=== PATIENT | male | born 1990 | race Caucasian/White ===

== ENCOUNTER 2018-03-14 15:02 | Inpatient (IN) | payer BC ==
[2018-03-14] MEDS ORDERED: methylPREDNISolone Sod Succ/PF 125 MG/2 ML VIAL ONE (15:33)
[2018-03-14] MEDS ORDERED: Cefepime 2 GM VIAL ONE (15:35)
[2018-03-14 15:48] LABS: #Eosinphils 0.2 thou/uL (0.0-0.7); #Lymphocytes 1.4 thou/uL (1.20-3.40); #Monocytes 0.8 thou/uL (0.11-0.59); #Neutrophils 11.1 thou/uL (1.40-6.50); %Basophils 0.3 % (0.0-1.0); %Eosinophils 1.7 % (0.0-10.0); %Lymphocytes 10.6 % (21.0-51.0); %Monocytes 5.9 % (0.0-10.0); %Neutrophils 81.5 % (42.0-75.0); Hemoglobin 15.4 g/dL (14.0-18.0); Mean Corpuscular HGB CONC 34.2 g/dL (32.0-36.0); Mean Corpuscular Hemoglobin 29.4 pg (27.0-31.0); Mean Corpuscular Volume 85.8 fL (78.0-98.0); Mean Platelet Volume 7.5 fL (7.4-10.4); Platelet Count 313 thou/uL (130-400); Red Blood Cell (RBC) Count 5.26 mill/uL (4.70-6.10); White Blood Cell (WBC) Count 13.6 thou/uL (4.8-10.8)
[2018-03-14 15:54] LABS: ALT (SGPT) 13 U/L (8-55); AST (SGOT) 27 U/L (5-34); Albumin 3.1 g/dL (3.5-5.0); Alkaline Phosphatase 69 U/L (40-150); Anion Gap 17 mmol/L (10-20); BUN (Urea Nitrogen) 10 mg/dL (8.9-20.6); Bilirubin, Total 0.9 mg/dL (0.2-1.2); Calc. Creatinine Clearance 0 mL/min (70-130); Calcium 8.8 mg/dL (7.8-10.44); Carbon Dioxide 21 mmol/L (22-29); Chloride 100 mmol/L (98-107); Estimated GFR-MDRD Greater than 90; Glucose 84 mg/dL (70-105); Protein, Total 8.1 g/dL (6.0-8.3); Sodium 135 mmol/L (136-145)
--- NOTE | 2018-03-14 15:56 | RAD ---
SINGLE VIEW OF CHEST: Date: 03/14/18 COMPARISON: None. HISTORY: Left lower extremity pneumonia. HIV positive. FINDINGS: Single view of the chest shows a normal sized cardiomediastinal silhouette. Opacity is seen in the in ferior aspect of the left thorax, which likely represents an infiltrate and adjacent pleural effusion . IMPRESSION: Left lower lobe infiltrate with adjacent pleural effusion. POS: [facility]
[2018-03-14] MEDS ORDERED: Acetaminophen 500 MG TAB ONE (17:07)
[2018-03-14] MEDS ORDERED: Hydrocortisone Sod Succ/PF 100 mg/2 ml Vial ONE (17:54)
[2018-03-14] MEDS ORDERED: Guaifenesin DM 100-10/5 ML UDCUP PO PRN (18:11)
[2018-03-14] MEDS ORDERED: Sodium Chloride 0.9% 1,000 ML IV SCH (18:11)
[2018-03-14 18:50] LABS: HIV (1/2) Antibody/Antigen Reflxed Confirmation (NonReactive)
[2018-03-14 18:52] LABS: HIV 1/2 INDEX 871.12 S/CO (<1.00)
[2018-03-14 19:52] LABS: HBCM Index 0.08 S/CO (0-0.79); HBSAg Index 0.26 S/CO (0-0.99); Hep A IgM AB Non-Reactive (NonReactive); Hep A IgM S/CO 0.13 S/CO (0-0.79); Hep B Surf Ag Non-Reactive S/CO (NonReactive); Hep C IgG Ab Non-Reactive (NonReactive); Hep C Index 0.18 S/CO (0-0.79); Hepatitis B Core IGM Abs Non-Reactive (NonReactive)
[2018-03-14] MEDS: Vancomycin HCl 1 GM in Premix Bag 1 BAG IVPB SCH (21:35)
[2018-03-14] MEDS: Sodium Chloride 0.9% 1,000 ML IV SCH (21:36)
[2018-03-14] MEDS: Famotidine 20 MG TAB PO SCH (21:37)
[2018-03-14] MEDS: Albuterol Sulfate 1.25 MG/3 ML NEB NEB SCH (22:12)
[2018-03-14] MEDS ORDERED: Albuterol Sulfate 1.25 MG/3 ML NEB NEB SCH (23:00)
--- NOTE | 2018-03-15 00:52 | HP ---
REASON FOR ADMISSION: Pneumonia, sepsis, newly diagnosed HIV. HISTORY OF PRESENT ILLNESS: The patient gives history of having been diagnosed with pneumonia from February when he went to see primary care physician on 02/25. He had seen Dr. Zamorano in [place]. He was given a course of doxycycline for 5 days. The patient continued to have fever of up to 102 degrees at home. He went back on 02/[address] Zamorano. He had a chest x-ray and blood work done. He was placed on Levaquin along with clarithromycin for another 10 days. He also had an intramuscular shot of antibiotic done. The patient continued to have fever and was feeling very weak and could not walk. He went back to see his primary care doctor and was told he has a new diagnosis of HIV and was asked to go to the emergency room. The patient has his partner, who is a known HIV positive, who is in the room and I have confirmed this. PAST MEDICAL AND SURGICAL HISTORY: New diagnosis of HIV from today. Right inguinal hernia repair. CURRENT MEDICATIONS: Doxycycline, clarithromycin, Singulair. ALLERGIES: No known drug allergies. PERSONAL HISTORY: Does not abuse alcohol or drugs. No history of smoking. 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 Occasional marijuana in the past. FAMILY HISTORY: Mother is here in the room and is healthy. Father has had history of PA and bowel surgery. CODE STATUS: FULL. REVIEW OF SYSTEMS: The following complete review of systems was negative, unless otherwise mentioned in the HPI or below: Constitutional: Weight loss or gain, ability to conduct usual activities. Skin: Rash, itching. Eyes: Double vision, pain. ENT/Mouth: Nose bleeding, neck stiffness, pain, tenderness. Cardiovascular: Palpitations, dyspnea on exertion, orthopnea. Respiratory: Shortness of breath, wheezing, cough, hemoptysis, fever or night sweats. Gastrointestinal: Poor appetite, abdominal pain, heartburn, nausea, vomiting, constipation, or diarrhea. Genitourinary: Urgency, frequency, dysuria, nocturia. Musculoskeletal: Pain, swelling. Neurologic/Psychiatric: Anxiety, depression. Allergy/Immunologic: Skin rash, bleeding tendency. PHYSICAL EXAMINATION: GENERAL: The patient is a 27-year-old male who is currently lethargic and has mild shortness of breath. VITAL SIGNS: Blood pressure 110/71, pulse 136 per minute, respiratory rate 26 per minute, temperature 101.9 degrees Fahrenheit, saturating 75% on room air and 96% on 2 liters nasal cannula. NECK: Supple. No elevated JVD. HEENT: Eyes: Extraocular muscles intact. Pupils are reacting to light. Oral cavity mucous membranes are dry. No exudates or congestion. CARDIOVASCULAR: S1, S2 heard. Regular rhythm. RESPIRATORY: Air entry 1+ bilateral. Scattered rhonchi plus bilateral. ABDOMEN: Soft, bowel sounds heard. No tenderness, rigidity, or guarding. EXTREMITIES: No peripheral edema or calf tenderness. VASCULAR SYSTEM: Peripheral pulses 1+ bilateral. No ischemic ulcerations or gangrene. CENTRAL NERVOUS SYSTEM: No gross focal deficits noted. Patient is alert and oriented well. PSYCHIATRIC: The patient is a bit anxious, otherwise no hallucinations or delusions. LABORATORY AND X-RAY FINDINGS: Chest x-ray done shows left lower lobe infiltrate. Potassium 3.0. Serum bicarbonate 21, BUN 10, creatinine 0.8, glucose 84. Lactic acid is 1.8. Liver enzymes are within normal limits. Albumin is 3.1. White count of 13, H&H 15 and 45, platelet count 313,000, MCV is 85 with 81% neutrophils. CLINICAL IMPRESSION AND PLAN: The patient will be admitted to [facility] for sepsis, pneumonia, likely PCP pneumonia with new diagnosis of human immunodeficiency virus from this a.m. He will be on Bactrim 200 mg IV q.6 hourly, cefepime 1 gram q.12 hourly, vancomycin 1 gram q.12 hourly. We will obtain HIV quantitative RNA PCR, CD4 count, hepatitis panel, CMV, herpes 1 and 2, IgG, IgM , LDH level, and urine for Strep pneumo and legionella antigens. He will be on albuterol nebulizer q.6 hourly, Solu-Medrol 20 mg IV q.8 hourly, and normal saline at 100 mL per hour. We will try to keep him on the impregnator and drier helper side to avoid acute respiratory distress syndrome. I have discussed this with Dr. Sheldon who is advised to place him on a small dose of Lasix to keep him dry. I have consulted Dr. Payne for Infectious Disease as well. We will continue to closely monitor him in [facility] for tonight. If patient is stable, he can be transferred out to medical floor in the morning. [facility]
[2018-03-15] MEDS: Albuterol Sulfate 1.25 MG/3 ML NEB NEB SCH ×4 (01:26→19:02)
[2018-03-15 02:26] LABS: Legionella Urinary Ag Negative (Negative); Strep pneumo Urine Ag NEGATIVE (NEGATIVE)
[2018-03-15 03:58] LABS: #Lymphocytes 0.5 thou/uL (1.20-3.40); #Monocytes 0.1 thou/uL (0.11-0.59); #Neutrophils 4.3 thou/uL (1.40-6.50); %Basophils 0.2 % (0.0-1.0); %Eosinophils 0.1 % (0.0-10.0); %Lymphocytes 10.5 % (21.0-51.0); %Monocytes 2.1 % (0.0-10.0); %Neutrophils 87.1 % (42.0-75.0); Hemoglobin 12.5 g/dL (14.0-18.0); Mean Corpuscular Hemoglobin 30.9 pg (27.0-31.0); Mean Corpuscular Volume 85.9 fL (78.0-98.0); Mean Platelet Volume 7.4 fL (7.4-10.4); Platelet Count 247 thou/uL (130-400); RBC Distribution Width 11.6 % (11.5-14.5); Red Blood Cell (RBC) Count 4.06 mill/uL (4.70-6.10); White Blood Cell (WBC) Count 4.9 thou/uL (4.8-10.8)
[2018-03-15 04:15] LABS: ALT (SGPT) 11 U/L (8-55); AST (SGOT) 19 U/L (5-34); Albumin 2.5 g/dL (3.5-5.0); Alkaline Phosphatase 54 U/L (40-150); Anion Gap 12 mmol/L (10-20); BUN (Urea Nitrogen) 10 mg/dL (8.9-20.6); Bilirubin, Total 0.5 mg/dL (0.2-1.2); Calc. Creatinine Clearance 178 mL/min (70-130); Calcium 8.2 mg/dL (7.8-10.44); Carbon Dioxide 22 mmol/L (22-29); Chloride 105 mmol/L (98-107); Estimated GFR-MDRD Greater than 90; Glucose 131 mg/dL (70-105); Potassium 3.2 mmol/L (3.5-5.1); Protein, Total 6.5 g/dL (6.0-8.3); Sodium 136 mmol/L (136-145)
[2018-03-15] MEDS: Cefepime 1 GM in Sodium Chloride 0.9% 100 ML IVPB SCH ×2 (04:19→15:43)
[2018-03-15] MEDS ORDERED: Prevnar 13-Val Conj/PF 0.5 ML SYRINGE IM ONE (09:00)
[2018-03-15] MEDS: Vancomycin HCl 1 GM in Premix Bag 1 BAG IVPB SCH ×2 (09:11→20:38)
[2018-03-15] MEDS: Furosemide 20 MG TAB PO SCH ×2 (09:15→14:16)
[2018-03-15] MEDS: Potassium Chloride 20 MEQ TAB PO SCH ×2 (09:15→17:29)
[2018-03-15] MEDS: Enoxaparin Sodium 40 MG/0.4 ML SYRINGE SC SCH (09:16)
[2018-03-15] MEDS: Famotidine 20 MG TAB PO SCH ×2 (09:16→20:38)
[2018-03-15] MEDS: Sodium Chloride 0.9% 1,000 ML IV SCH ×2 (09:20→14:16)
--- NOTE | 2018-03-15 10:17 | CT ---
CT OF CHEST NONCONTRAST: COMPARISON: Radiograph of chest previous day. INDICATION: History of HIV, pneumonia. FINDINGS: There is diffuse abnormal alveolar opacification involving all pulmonary lobes. Interstitial septal thickening is superimposed upon the diffuse ground-glass attenuation. There is no pleural effusion. Superimposed areas of patchy bronchovascular distribution of opacification are present within the po sterior lower lobes, with bilateral traversing air bronchograms. No evidence of pneumothorax. There are mildly enlarged lymph nodes of the chest, incomplete assessment on noncontrast imaging. No acut e osseous pathology is seen. IMPRESSION: Diffuse abnormal alveolar, ground-glass opacities with superimposed interstitial septal thickening, d iffusely throughout each lung favoring an atypical pneumonia such as pneumocystis jiroveci pneumonia. Other etiologies for atypical infection should be correlated clinically, and as imaging findings ar e nonspecific, findings could relate, at least in part, due to edema, alveolar hemorrhage, or sequela e from inhalational injuries. Recommend continued imaging followup. Findings were conveyed via telephone to patient's air conditioner installer helper, Dr. Jared Sheldon, at the time of dic tation, 0900 hours, 03/15/18. CODE CR POS: [facility]
--- NOTE | 2018-03-15 11:07 | PDOC.PN ---
- Subjective Encounter Start Date: 03/15/18 Encounter Start Time: 09:50 Subjective: breathing better but still sob -: says his fever is better - Objective Resuscitation Status: Resuscitation Status FULL:Full Resuscitation MAR Reviewed: Yes Vital Signs & Weight: Vital Signs (12 hours) Temp Pulse Resp BP Pulse Ox 03/15/18 09:37 94 L 03/15/18 09:34 104 H 16 03/15/18 07:32 98.2 F 99 31 H 123/71 95 03/15/18 07:30 98.5 F 89 16 95 03/15/18 04:00 98.5 F 89 16 100/50 L 92 L 03/15/18 01:26 93 16 03/15/18 00:00 98.7 F 94 22 H 125/76 90 L Weight Weight 176 lb I&O: 03/14/18 03/15/18 03/16/18 06:59 06:59 06:59 Intake Total 1635 120 Output Total 1075 Balance 560 120 Result Diagrams: 03/15/18 03:15 03/15/18 03:15 Phys Exam - Physical Examination HEENT: PERRLA, moist MMs Neck: no JVD, supple Respiratory: no wheezing, no rales rhonchi++ Cardiovascular: RRR, no significant murmur Gastrointestinal: soft, non-tender, positive bowel sounds Musculoskeletal: no edema, pulses present Neurological: non-focal, moves all 4 limbs Psychiatric: normal affect, A&O x 3 Dx/Plan (1) AIDS (acquired immune deficiency syndrome) Status: Acute (2) PNA (pneumonia) Code(s): J18.9 - PNEUMONIA, UNSPECIFIED ORGANISM Status: Acute Qualifiers: Pneumonia type: due to Pneumocystis jirovecii Laterality: bilateral (3) Sepsis Code(s): A41.9 - SEPSIS, UNSPECIFIED ORGANISM Status: Acute (4) Acute respiratory failure with hypoxia Code(s): J96.01 - ACUTE RESPIRATORY FAILURE WITH HYPOXIA Status: Acute - Plan is on bactrim iv along with cefepime and vanc -: solumedrol, gentle iv hydration -: oral lasix to keep intravascular vol low -: ct chest, pulm and ID consult -: cd4 is pending, gave updates to family (mom and partner at bedside) * . Review of Systems - Medications/Allergies Allergies/Adverse Reactions: Allergies Allergy/AdvReac Type Severity Reaction Status Date / Time No Known Allergies Allergy Verified 03/15/18 03:05 Medications: Current Medications Acetaminophen (Tylenol) 650 mg PO Q4H PRN PRN Reason: Headache/Fever or Pain Albuterol Sulfate (Albuterol Sulfate) 1.25 mg NEB [id number] [facility] Last Admin: 03/15/18 09:34 Dose: 1.25 mg Enoxaparin Sodium (Lovenox) 40 mg SC 0900 [facility] Last Admin: 03/15/18 09:16 Dose: 40 mg Famotidine (Pepcid) 20 mg PO BID [facility] Last Admin: 03/15/18 09:16 Dose: 20 mg Furosemide (Lasix) 20 mg PO 0900,1400 [facility] Last Admin: 03/15/18 09:15 Dose: 20 mg Guaifenesin/Dextromethorphan (Robitussin Dm) 15 ml PO Q4H PRN PRN Reason: Cough Cefepime HCl 1 gm/ Sodium (Chloride) 100 mls @ 200 mls/hr IVPB 0400,1600 [facility] Last Admin: 03/15/18 04:19 Dose: 100 mls Sodium Chloride (Normal Saline 0.9%) 1,000 mls @ 100 mls/hr IV .Q10H [facility] Last Admin: 03/15/18 09:20 Dose: Not Given Trimethoprim/Sulfamethoxazole (200 mg/ Dextrose/Water) 250 mls @ 166.667 mls/ hr IVPB Q6HR [facility] Last Admin: 03/15/18 06:08 Dose: 250 mls Vancomycin HCl 1 gm/ Device 200 mls @ 200 mls/hr IVPB Q12HR [facility] Last Admin: 03/15/18 09:11 Dose: 200 mls Methylprednisolone Sodium Succinate (Solu-Medrol) 20 mg IVP Q8HR [facility] Last Admin: 03/15/18 05:32 Dose: 20 mg Potassium Chloride (K-Dur) 40 meq PO BID-WM [facility] Last Admin: 03/15/18 09:15 Dose: 40 meq Sodium Chloride (Flush - Normal Saline) 10 ml IVF Q12HR [facility] Last Admin: 03/15/18 09:15 Dose: Not Given Sodium Chloride (Flush - Normal Saline) 10 ml IVF PRN PRN PRN Reason: Saline Flush
--- NOTE | 2018-03-15 17:52 | CON ---
DATE OF CONSULTATION: 03/15/2018 HISTORY OF PRESENT ILLNESS: Orestes Armijo is a 27-year-old male. He presented after having symptoms of cough, chest congestion, and fever for 3 weeks, failing to respond to outpatient antimicrobial therapy. An HIV was drawn which was positive. Apparently, he has a significant other also has HIV. He subsequently was transferred for admission and treatment. PAST MEDICAL HISTORY: Remarkable for no smoking, no drinking, rarely has used marijuana in the past. FAMILY HISTORY: Negative for lung disease. Positive for vascular disease. SOCIAL HISTORY: Not obtained. REVIEW OF SYSTEMS: 10 point systems review completed, otherwise negative. He denies nausea, vomiting, headache, change in vision, diarrhea or abdominal pain. PHYSICAL EXAMINATION: GENERAL: He is afebrile VITALS: heart rate is 97, respiratory rates in the 20s to low 30s, oximetry is 96 on 50% mask, blood pressure 127/71. HEENT: Pupils are equal. Sclerae is anicteric. NECK: Supple. LUNGS: Clear with only faint crackles at his bases. HEART: Regular rhythm, no gallop. ABDOMEN: Soft and nontender. EXTREMITIES: Without clubbing, cyanosis, or edema. LABORATORY DATA: White count 4.9, hemoglobin 12.5, platelets 247. Electrolytes are normal. LDH was 639, albumin is 2.5. Hepatitis panel was negative. Strep and legionella antigens are negative. IMAGING: Chest radiograph suggestive of a left effusion with diffuse infiltrates. Chest CT without contrast done today shows diffuse alveolar infiltrates bilaterally. This most likely is pneumocystis. IMPRESSION AND PLAN: Antimicrobial therapy and steroids have been started. We will continue with this empirically. Infectious Disease should be consulted. Bronchoscopy will be deferred unless he deteriorates. However, he says he feels better than he felt yesterday, so hopefully there are no co-pathogens. It would be reasonable to stop the vancomycin. I doubt he has an MRSA infection , but I will await Infectious Disease input. This is a 70 minute consult, with greater than 50% of time spent on unit with coordination of care. UNIQUE
--- NOTE | 2018-03-15 20:26 | CON ---
DATE OF CONSULTATION: 03/15/2018 REASON FOR CONSULTATION: Pneumonia. HISTORY OF PRESENT ILLNESS: A 27-year-old who has history of hernia repair in the past and was in his usual state until the beginning of February when he developed progressively worsening dyspnea with fever, a little bit of cough, but not much, some headaches, no visual symptoms, sore throat, odynophagia, or dysphagia. No chest pain, no back pain or abdominal pain. Of note, had diarrhea briefly, but not anymore. No genitourinary symptoms. No joint symptoms or skin disorder. PAST MEDICAL HISTORY: Hernia repair. He had been on doxycycline, clarithromycin, Singulair for the current episode of pneumonia. ALLERGIES: None. 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 He is engaged to another man and does not smoke cigarettes, drinks occasionally. FAMILY HISTORY: Noncontributory. PHYSICAL EXAMINATION: VITAL SIGNS: T-max 99.1, blood pressure 120/70, pulse 97, respirations anywhere from 16-38, O2 sat 96%. SKIN: Shows a few tattoos. No lymphadenopathy. HEENT: Ocular movements conjugate. Sclerae white. Oral cavity normal. Numerous teeth in place. NECK: Supple, no jugular vein distention or carotid bruits. LUNGS: Symmetric air entry. Cellophane like inspiratory crackles lower thirds of right and left hemithorax. HEART: S1, S2, regular rate without S3 or S4, no murmurs. ABDOMEN: Soft, not distended or tender. No ascites. No bladder distention. : No genital abnormalities. EXTREMITIES: No joint inflammatory activity. NEUROLOGIC: Nonfocal including cognitive function. LABORATORY DATA: White cell count is 13.6 and now 4.9, hemoglobin 13.4, platelets 313, total lymphocyte count 1.4 and now 0.5. Chemistry: Sodium 135, potassium 3.0 and 3.2, creatinine 0.81. Liver profile normal. Albumin 3.1. HIV serology reflects confirmation pending. Positive hepatitis serology negative. Legionella and strep pneumonia antigen negative. Chest x-ray with left lower lobe infiltrate. Chest CT scan diffuse alveolar opacification involving all pulmonary lobes, interstitial septal thickening and ground-glass attenuation, no evidence of pleural effusion. We have pending CMV antibodies, CD4 cell count, and HIV RNA PCR. He is currently on Bactrim, Solu-Medrol, and cefepime. ASSESSMENT: Chronic pneumonitis, bilateral diffuse with alveolar and interstitial involvement hypoxemia in the setting of newly identified human immunodeficiency virus positive serology and lymphocytopenia in a young man who has sexual activity with other man. DISCUSSION: Differential diagnosis includes Pneumocystis jiroveci pneumonia versus other opportunistic processes in HIV positive patient. This reflects advanced immunosuppression with CD4 cell count likely less than 200. Other opportunistic infections including cytomegalovirus Cryptococcus neoformans, Histoplasma capsulatum infection are not ruled out. Malignancies are less likely. No evidence of intra-abdominal or [employer] involvement. Continue Bactrim and Solu-Medrol. Submit assays for the above pathogens. Withhold antiretroviral therapy until there is some improvement in his pneumonia. Check Fungitell assay. If he does not get better, he will need a bronchoscopy evaluation. Once improved, he can be transitioned to oral Bactrim and oral corticosteroids in preparation for discharge planning with antiretroviral therapy started in OP setting. MTDD
[2018-03-16] MEDS: Albuterol Sulfate 1.25 MG/3 ML NEB NEB SCH ×4 (00:44→18:19)
[2018-03-16] MEDS: Cefepime 1 GM in Sodium Chloride 0.9% 100 ML IVPB SCH ×2 (04:14→15:59)
[2018-03-16] MEDS: Sodium Chloride 0.9% 1,000 ML IV SCH ×2 (04:14→09:23)
[2018-03-16 08:10] LABS: Vancomycin, Trough 6.3 ug/mL
[2018-03-16] MEDS: Famotidine 20 MG TAB PO SCH ×2 (08:50→21:01)
[2018-03-16] MEDS: Furosemide 20 MG TAB PO SCH ×2 (08:50→14:12)
[2018-03-16] MEDS: Potassium Chloride 20 MEQ TAB PO SCH ×2 (08:50→17:56)
[2018-03-16] MEDS: Enoxaparin Sodium 40 MG/0.4 ML SYRINGE SC SCH (08:50)
[2018-03-16 09:53] LABS: #Lymphocytes 0.7 thou/uL (1.20-3.40); #Monocytes 0.7 thou/uL (0.11-0.59); #Neutrophils 13.8 thou/uL (1.40-6.50); %Eosinophils 0.1 % (0.0-10.0); %Lymphocytes 4.8 % (21.0-51.0); %Monocytes 4.5 % (0.0-10.0); %Neutrophils 90.6 % (42.0-75.0); Hemoglobin 14.2 g/dL (14.0-18.0); Mean Corpuscular Hemoglobin 30.4 pg (27.0-31.0); Mean Corpuscular Volume 86.9 fL (78.0-98.0); Mean Platelet Volume 7.2 fL (7.4-10.4); Platelet Count 244 thou/uL (130-400); RBC Distribution Width 12.1 % (11.5-14.5); Red Blood Cell (RBC) Count 4.66 mill/uL (4.70-6.10); White Blood Cell (WBC) Count 15.2 thou/uL (4.8-10.8)
[2018-03-16 10:13] LABS: Anion Gap 14 mmol/L (10-20); BUN (Urea Nitrogen) 12 mg/dL (8.9-20.6); Calc. Creatinine Clearance 176 mL/min (70-130); Calcium 8.4 mg/dL (7.8-10.44); Carbon Dioxide 19 mmol/L (22-29); Chloride 110 mmol/L (98-107); Estimated GFR-MDRD Greater than 90; Glucose 123 mg/dL (70-105); Potassium 3.8 mmol/L (3.5-5.1); Sodium 139 mmol/L (136-145)
--- NOTE | 2018-03-16 11:04 | PRG ---
DATE OF SERVICE: 03/16/2018 SUBJECTIVE: The patient is very short of breath with any exertion. OBJECTIVE: VITAL SIGNS: Temperature is 98.2, pulse 99, respirations from 18-32, O2 sat 93% on 40% Ventimask, bl ood pressure 115/63. HEENT: Unremarkable. NECK: No JVD. LUNGS: Clear. CARDIAC: S1 and S2 regular. ABDOMEN: Soft. EXTREMITIES: No edema. LABORATORY DATA: White blood cell count 15, hematocrit 40, platelet count 244. Sodium 139, potassiu m 3.8, chloride 110, CO2 of 19, BUN 12, creatinine 0.7, glucose 123. ASSESSMENT: 1. Very likely we are dealing with pneumocystis pneumonia. 2. Newly diagnosed human immunodeficiency virus. PLAN: Continue the Bactrim, steroids and oxygen. He is also continuing broad spectrum IV antibiotic s for possible acquired pathogens. He will remain in the IMCU.
[2018-03-16 12:12] LABS: HIV 1 Antibody Multi-Spot Positive (Negative); HIV 2 Antibody Multi-Spot Negative (Negative); HIV Multi-spot Interp HIV-1 Positive (.)
--- NOTE | 2018-03-16 12:45 | PDOC.PN ---
- Subjective Encounter Start Date: 03/16/18 Encounter Start Time: 10:35 Subjective: has sob on min exertion in room -: partner and mom in room - Objective Resuscitation Status: Resuscitation Status FULL:Full Resuscitation MAR Reviewed: Yes Vital Signs & Weight: Vital Signs (12 hours) Temp Pulse Resp BP Pulse Ox 03/16/18 11:18 98.2 F 93 17 104/59 L 97 03/16/18 09:08 93 L 03/16/18 09:07 99 32 H 03/16/18 08:00 98.2 F 93 18 92 L 03/16/18 07:28 98.2 F 93 18 115/63 92 L 03/16/18 04:23 98.3 F 85 31 H 106/60 94 L 03/16/18 00:44 110 H 22 H 94 L Weight Weight 176 lb I&O: 03/15/18 03/16/18 03/17/18 06:59 06:59 06:59 Intake Total 1635 4092.5 240 Output Total 1075 1350 Balance 560 2742.5 240 Result Diagrams: 03/16/18 07:43 03/16/18 07:43 Phys Exam - Physical Examination HEENT: PERRLA, moist MMs Neck: no JVD, supple Respiratory: no wheezing rhonchi+ Cardiovascular: RRR, no significant murmur Gastrointestinal: soft, non-tender, positive bowel sounds Musculoskeletal: no edema, pulses present Neurological: non-focal, moves all 4 limbs Psychiatric: normal affect, A&O x 3 Dx/Plan (1) AIDS (acquired immune deficiency syndrome) Status: Acute (2) PNA (pneumonia) Code(s): J18.9 - PNEUMONIA, UNSPECIFIED ORGANISM Status: Acute Qualifiers: Pneumonia type: due to Pneumocystis jirovecii Laterality: bilateral (3) Sepsis Code(s): A41.9 - SEPSIS, UNSPECIFIED ORGANISM Status: Acute (4) Acute respiratory failure with hypoxia Code(s): J96.01 - ACUTE RESPIRATORY FAILURE WITH HYPOXIA Status: Acute Comment: on ventimask - Plan on bactrim and cefepime, dc vanc -: solumedrol, lasix to prevent ards -: reduce iv fluids to 50mls/hr -: to amb in room -: cd4 levels are pending, still needing supple oxygen * . Review of Systems - Medications/Allergies Allergies/Adverse Reactions: Allergies Allergy/AdvReac Type Severity Reaction Status Date / Time No Known Allergies Allergy Verified 03/15/18 03:05 Medications: Current Medications Acetaminophen (Tylenol) 650 mg PO Q4H PRN PRN Reason: Headache/Fever or Pain Albuterol Sulfate (Albuterol Sulfate) 1.25 mg NEB [id number] [facility] Last Admin: 03/16/18 09:07 Dose: 1.25 mg Enoxaparin Sodium (Lovenox) 40 mg SC 0900 [facility] Last Admin: 03/16/18 08:50 Dose: 40 mg Famotidine (Pepcid) 20 mg PO BID [facility] Last Admin: 03/16/18 08:50 Dose: 20 mg Furosemide (Lasix) 20 mg PO 0900,1400 [facility] Last Admin: 03/16/18 08:50 Dose: 20 mg Guaifenesin/Dextromethorphan (Robitussin Dm) 15 ml PO Q4H PRN PRN Reason: Cough Cefepime HCl 1 gm/ Sodium (Chloride) 100 mls @ 200 mls/hr IVPB 0400,1600 [facility] Last Admin: 03/16/18 04:14 Dose: 100 mls Trimethoprim/Sulfamethoxazole (200 mg/ Dextrose/Water) 250 mls @ 166.667 mls/ hr IVPB Q6HR [facility] Last Admin: 03/16/18 12:07 Dose: 250 mls Sodium Chloride (Normal Saline 0.9%) 1,000 mls @ 50 mls/hr IV .Q20H [facility] Last Admin: 03/16/18 09:23 Dose: Not Given Methylprednisolone Sodium Succinate (Solu-Medrol) 20 mg IVP Q8HR [facility] Last Admin: 03/16/18 05:51 Dose: 20 mg Potassium Chloride (K-Dur) 40 meq PO BID-WM [facility] Last Admin: 03/16/18 08:50 Dose: 40 meq Sodium Chloride (Flush - Normal Saline) 10 ml IVF Q12HR [facility] Last Admin: 03/16/18 08:50 Dose: 10 ml Sodium Chloride (Flush - Normal Saline) 10 ml IVF PRN PRN PRN Reason: Saline Flush
[2018-03-16 13:58] LABS: Reference Lab Name LABCORP
[2018-03-16 13:59] LABS: Ref Lab Test Ordered PHENOSENSE GT INTEGR
[2018-03-17] MEDS: Albuterol Sulfate 1.25 MG/3 ML NEB NEB SCH ×4 (01:03→18:21)
[2018-03-17] MEDS: Cefepime 1 GM in Sodium Chloride 0.9% 100 ML IVPB SCH ×2 (04:50→16:18)
[2018-03-17 06:09] LABS: Anion Gap 12 mmol/L (10-20); BUN (Urea Nitrogen) 11 mg/dL (8.9-20.6); Calc. Creatinine Clearance 192 mL/min (70-130); Calcium 8.3 mg/dL (7.8-10.44); Carbon Dioxide 22 mmol/L (22-29); Chloride 106 mmol/L (98-107); Estimated GFR-MDRD Greater than 90; Glucose 101 mg/dL (70-105); Potassium 4.4 mmol/L (3.5-5.1); Sodium 136 mmol/L (136-145)
[2018-03-17] MEDS: Furosemide 20 MG TAB PO SCH ×2 (09:04→14:17)
[2018-03-17] MEDS: Famotidine 20 MG TAB PO SCH ×2 (09:04→21:00)
[2018-03-17] MEDS: Enoxaparin Sodium 40 MG/0.4 ML SYRINGE SC SCH (09:04)
[2018-03-17 09:09] LABS: Toxoplasma IgG AB Less than 3.0 IU/mL (0.0-7.1); Toxoplasma IgM AB Less than 3.0 AU/mL (0.0-7.9)
[2018-03-17] MEDS: Sodium Chloride 0.9% 1,000 ML IV SCH ×2 (09:12→11:55)
--- NOTE | 2018-03-17 12:15 | PDOC.PN ---
- Subjective Encounter Start Date: 03/17/18 Encounter Start Time: 10:30 Subjective: still sob on min exertion, is on ventimask - Objective Resuscitation Status: Resuscitation Status FULL:Full Resuscitation MAR Reviewed: Yes Vital Signs & Weight: Vital Signs (12 hours) Temp Pulse Resp BP Pulse Ox 03/17/18 10:54 98.5 F 97 22 H 104/54 L 90 L 03/17/18 09:07 104 H 20 03/17/18 08:00 98.9 F 94 19 03/17/18 07:45 98.9 F 94 19 120/67 91 L 03/17/18 04:00 98.8 F 87 25 H 105/57 L 92 L 03/17/18 01:03 94 27 H 95 Weight Weight 176 lb I&O: 03/16/18 03/17/18 03/18/18 06:59 06:59 06:59 Intake Total 4092.5 2420.5 240 Output Total 1350 4475 600 Balance 2742.5 -2054.5 -360 Result Diagrams: 03/16/18 07:43 03/17/18 05:44 Phys Exam - Physical Examination HEENT: PERRLA, sclera anicteric Neck: no JVD, supple Respiratory: no wheezing rhonchi+ Cardiovascular: RRR, no significant murmur Gastrointestinal: soft, non-tender, positive bowel sounds Musculoskeletal: no edema, pulses present Neurological: non-focal, moves all 4 limbs Psychiatric: normal affect, A&O x 3 Dx/Plan (1) AIDS (acquired immune deficiency syndrome) Status: Acute (2) PNA (pneumonia) Code(s): J18.9 - PNEUMONIA, UNSPECIFIED ORGANISM Status: Acute Qualifiers: Pneumonia type: due to Pneumocystis jirovecii Laterality: bilateral (3) Sepsis Code(s): A41.9 - SEPSIS, UNSPECIFIED ORGANISM Status: Acute (4) Acute respiratory failure with hypoxia Code(s): J96.01 - ACUTE RESPIRATORY FAILURE WITH HYPOXIA Status: Acute Comment: on ventimask - Plan is on bactrim iv and cefepime -: nebs, iv steroids -: cd4 and quantitative pcr pending -: to ambulate in hallway as tolerated -: may dc iv fluids, continue lasix daily? * . Review of Systems - Medications/Allergies Allergies/Adverse Reactions: Allergies Allergy/AdvReac Type Severity Reaction Status Date / Time No Known Allergies Allergy Verified 03/15/18 03:05 Medications: Current Medications Acetaminophen (Tylenol) 650 mg PO Q4H PRN PRN Reason: Headache/Fever or Pain Albuterol Sulfate (Albuterol Sulfate) 1.25 mg NEB [id number] [facility] Last Admin: 03/17/18 09:07 Dose: 1.25 mg Enoxaparin Sodium (Lovenox) 40 mg SC 0900 [facility] Last Admin: 03/17/18 09:04 Dose: 40 mg Famotidine (Pepcid) 20 mg PO BID [facility] Last Admin: 03/17/18 09:04 Dose: 20 mg Furosemide (Lasix) 20 mg PO 0900,1400 [facility] Last Admin: 03/17/18 09:04 Dose: 20 mg Guaifenesin/Dextromethorphan (Robitussin Dm) 15 ml PO Q4H PRN PRN Reason: Cough Cefepime HCl 1 gm/ Sodium (Chloride) 100 mls @ 200 mls/hr IVPB 0400,1600 [facility] Last Admin: 03/17/18 04:50 Dose: 100 mls Trimethoprim/Sulfamethoxazole (200 mg/ Dextrose/Water) 250 mls @ 166.667 mls/ hr IVPB Q6HR [facility] Last Admin: 03/17/18 11:53 Dose: 250 mls Sodium Chloride (Normal Saline 0.9%) 1,000 mls @ 50 mls/hr IV .Q20H [facility] Last Admin: 03/17/18 11:55 Dose: 1,000 mls Methylprednisolone Sodium Succinate (Solu-Medrol) 20 mg IVP Q8HR [facility] Last Admin: 03/17/18 06:29 Dose: 20 mg Sodium Chloride (Flush - Normal Saline) 10 ml IVF Q12HR [facility] Last Admin: 03/17/18 09:08 Dose: 10 ml Sodium Chloride (Flush - Normal Saline) 10 ml IVF PRN PRN PRN Reason: Saline Flush
--- NOTE | 2018-03-17 12:46 | PRG ---
DATE OF SERVICE: 03/17/2018 SUBJECTIVE: The patient is doing a little better. He is still requiring high flow oxygen. OBJECTIVE: VITAL SIGNS: Temperature 98.5, pulse 97, respiratory 22, O2 sat 92% on a Ventimask, blood pressure 10 4/54. HEENT: Unremarkable. NECK: No JVD. LUNGS: He has inspiratory crackles in left base, right side is clear. CARDIAC: S1 and S2 regular. ABDOMEN: Soft. EXTREMITIES: No edema. LABORATORY DATA: Sodium 136, potassium 4.4, BUN 11, creatinine 0.6, glucose 101. ASSESSMENT: 1. Probable pneumocystis pneumonia. 2. Newly diagnosed human immunodeficiency virus. PLAN: Continuing Bactrim, steroids and oxygen. Due to his severe hypoxia, he is remaining in the IM [facility].
[2018-03-17 13:09] LABS: HIV-1 Quantitative, RNA PCR 479000 copies/mL (.)
--- NOTE | 2018-03-17 14:36 | PRG ---
DATE OF SERVICE: 03/17/2018 SUBJECTIVE: He is still in the IMCU sitting by the bedside. He was quite a bit of dyspneic earlier this morning, but feeling a little better now. No headaches. Minimal cough, no sputum production, n o chest pain, no abdominal pain or diarrhea. Voiding without difficulty. No neurological symptoms. OBJECTIVE: VITAL SIGNS: T-max 98.9, blood pressure 104/54, pulse 97, respirations 22, O2 sat 90%. SKIN: Perip heral IV access. No Justin catheter. GENERAL: Awake, alert, oriented. HEENT: Ocular movements are conjugate. LUNGS: Good aeration bilaterally with faint inspiratory crackles at the bases, less prominent than o n admission. ABDOMEN: Soft and not distended. CARDIOVASCULAR: S1, S2, regular rate. NEUROLOGIC: Nonfocal. LABORATORY DATA: White cell count 15.2, hemoglobin 14, platelets 244, creatinine 0.66. The Cryptoco ccus antigen negative in serum. HIV RNA PCR 479,000. CMV DNA PCR pending. Fungitell assay pending. ASSESSMENT AND PLAN: Newly identified human immunodeficiency virus infection with likely advanced im munosuppression and diffuse pneumonitis, which is probably secondary to pneumocystis jiroveci infecti on. Continue Bactrim and Medrol. Wait for antiretroviral initiation until there is further improvem ent of pneumonitis to avoid immune reconstitution syndrome and worsening of respiratory status. Wait ing on Fungitell assay, if it is positive, then we will continue treatment with Bactrim. If it is ne gative, then we will have to consider bronchoscopy.
[2018-03-18] MEDS: Albuterol Sulfate 1.25 MG/3 ML NEB NEB SCH ×4 (00:44→19:03)
[2018-03-18] MEDS: Cefepime 1 GM in Sodium Chloride 0.9% 100 ML IVPB SCH ×2 (03:52→16:03)
[2018-03-18] MEDS: Famotidine 20 MG TAB PO SCH ×2 (08:41→21:32)
[2018-03-18] MEDS: Furosemide 20 MG TAB PO SCH ×2 (08:41→14:30)
[2018-03-18] MEDS: Enoxaparin Sodium 40 MG/0.4 ML SYRINGE SC SCH (08:42)
[2018-03-18] MEDS: Sodium Chloride 0.9% 1,000 ML IV SCH ×2 (08:44→11:53)
[2018-03-18 10:13] LABS: %CD4 (Helper/Inducer) 3.5 % (30.8-58.5); Absolute CD4 14 /uL (359-1519); Lymphocytes/Gated Cell Count 0.4 x10E3/uL (0.7-3.1); Total Lymphocyte 5 % (Not Estab.); WBC Total Count 9.9 x10E3/uL (3.4-10.8)
--- NOTE | 2018-03-18 14:25 | PDOC.PN ---
- Subjective Encounter Start Date: 03/18/18 Encounter Start Time: 13:10 Subjective: sob better, is on high flow oxygen - Objective Resuscitation Status: Resuscitation Status FULL:Full Resuscitation MAR Reviewed: Yes Vital Signs & Weight: Vital Signs (12 hours) Temp Pulse Resp BP Pulse Ox 03/18/18 13:22 93 22 H 94 L 03/18/18 11:46 98.0 F 98 20 103/55 L 93 L 03/18/18 08:29 91 L 03/18/18 08:26 90 20 91 L 03/18/18 08:00 98.9 F 91 20 95 03/18/18 07:39 98.9 F 91 20 96/55 L 91 L 03/18/18 04:32 98.4 F 68 22 H 109/60 92 L Weight Weight 176 lb I&O: 03/17/18 03/18/18 03/19/18 06:59 06:59 06:59 Intake Total 2420.5 3044 120 Output Total 4475 3060 Balance -2054.5 -16 120 Result Diagrams: 03/16/18 07:43 03/17/18 05:44 Phys Exam - Physical Examination HEENT: PERRLA, moist MMs Neck: no JVD, supple Respiratory: no wheezing, no rales Cardiovascular: RRR, no significant murmur Gastrointestinal: soft, non-tender, no distention, positive bowel sounds Musculoskeletal: no edema, pulses present Neurological: non-focal, moves all 4 limbs Psychiatric: normal affect, A&O x 3 Dx/Plan (1) AIDS (acquired immune deficiency syndrome) Status: Acute Comment: CD4 count of 14 (2) PNA (pneumonia) Code(s): J18.9 - PNEUMONIA, UNSPECIFIED ORGANISM Status: Acute Qualifiers: Pneumonia type: due to Pneumocystis jirovecii Laterality: bilateral (3) Sepsis Code(s): A41.9 - SEPSIS, UNSPECIFIED ORGANISM Status: Acute (4) Acute respiratory failure with hypoxia Code(s): J96.01 - ACUTE RESPIRATORY FAILURE WITH HYPOXIA Status: Acute Comment: on high flow O2 - Plan on bactrim, cefepime, steroids, nebs -: will need prophylactic meds for low CD4 count per advice -: is ambulating in room -: continue lasix * . Review of Systems - Medications/Allergies Allergies/Adverse Reactions: Allergies Allergy/AdvReac Type Severity Reaction Status Date / Time No Known Allergies Allergy Verified 03/15/18 03:05 Medications: Current Medications Acetaminophen (Tylenol) 650 mg PO Q4H PRN PRN Reason: Headache/Fever or Pain Albuterol Sulfate (Albuterol Sulfate) 1.25 mg NEB [id number] [facility] Last Admin: 03/18/18 13:22 Dose: 1.25 mg Enoxaparin Sodium (Lovenox) 40 mg SC 0900 [facility] Last Admin: 03/18/18 08:42 Dose: 40 mg Famotidine (Pepcid) 20 mg PO BID [facility] Last Admin: 03/18/18 08:41 Dose: 20 mg Furosemide (Lasix) 20 mg PO 0900,1400 [facility] Last Admin: 03/18/18 08:41 Dose: 20 mg Guaifenesin/Dextromethorphan (Robitussin Dm) 15 ml PO Q4H PRN PRN Reason: Cough Cefepime HCl 1 gm/ Sodium (Chloride) 100 mls @ 200 mls/hr IVPB 0400,1600 [facility] Last Admin: 03/18/18 03:52 Dose: 100 mls Trimethoprim/Sulfamethoxazole (200 mg/ Dextrose/Water) 250 mls @ 166.667 mls/ hr IVPB Q6HR [facility] Last Admin: 03/18/18 11:53 Dose: 250 mls Sodium Chloride (Normal Saline 0.9%) 1,000 mls @ 50 mls/hr IV .Q20H [facility] Last Admin: 03/18/18 11:53 Dose: 1,000 mls Methylprednisolone Sodium Succinate (Solu-Medrol) 20 mg IVP Q8HR [facility] Last Admin: 03/18/18 05:34 Dose: 20 mg Sodium Chloride (Flush - Normal Saline) 10 ml IVF Q12HR [facility] Last Admin: 03/18/18 08:42 Dose: 10 ml Sodium Chloride (Flush - Normal Saline) 10 ml IVF PRN PRN PRN Reason: Saline Flush Last Admin: 03/17/18 14:18 Dose: 10 ml
[2018-03-18] MEDS: Acetaminophen 325 MG TAB PO PRN (14:30)
--- NOTE | 2018-03-18 18:01 | PRG ---
DATE OF SERVICE: 03/18/2018 SUBJECTIVE: Mr. Armijo says he is feeling better than he felt on Sunday. OBJECTIVE: VITAL SIGNS: His temperature is 99, heart rate 106, respiratory rate 22. He is now on a high-flow n ramon cannula. Oximetry is 91 to 94, blood pressure 101/58. LUNGS: Unchanged. HEART: Unchanged. ABDOMEN: Unchanged. IMPRESSION: Human immunodeficiency virus positive with pneumonia, presumably pneumocystis. He annie nues to subjectively and objectively improve.
--- NOTE | 2018-03-18 18:05 | RAD ---
SINGLE VIEW CHEST: HISTORY: Multifocal infiltrates/pneumonia. COMPARISON: CT chest from 03/15/2018 and chest x-ray from 03/14/2018. FINDINGS: A single view of the chest shows a normal sized cardiomediastinal silhouette. Opacity is still prese nt in the left lower lobe. However, this has improved compared to the prior examination. The left h emidiaphragm is obscured, and a small pleural effusion may or may not be present. IMPRESSION: Improvement in pneumonia. POS: AKUAH
--- NOTE | 2018-03-18 18:56 | PRG ---
DATE OF SERVICE: 03/18/2018 SUBJECTIVE: Still requiring high flow oxygen to keep his sats at least 90. He gets fatigued when he sits up for brief periods of time, able to eat. No diarrhea. Voiding without difficulty. No chest pain. OBJECTIVE: VITAL SIGNS: T-max 99, BP 101/58, pulse 106, respirations 22, O2 sat 91%. GENERAL: Awake, alert. LUNGS: High flow oxygen, symmetric air entry, faint crackles at the bases. CARDIOVASCULAR: S1, S2, regular rate. ABDOMEN: Soft and not distended or tender. EXTREMITIES: Moves all extremities equally. LABORATORY DATA: White cell count 15.2, hemoglobin 14, platelets 244. Sodium 136, creatinine 0.66. Liver profile normal. Albumin 2.5. CD4 was 14. The Fungitell assay is pending. ASSESSMENT AND DISCUSSION: HIV infection with advanced immunosuppression, likely pneumocystis pneumo claudia. processes not ruled out. In view of the CD4 cell count, we will submit AFB blood culture s to rule out MAC infection as well. CMV histoplasma assays are pending. Fungitell assay pending. Continue Bactrim. Increase dose to 250 mg q.6 h. Continue steroids. Withhold antiretroviral therap y for the time being.
[2018-03-18 23:09] LABS: HSV-1 IgG Type Specific 0.92 index (0.00-0.90); HSV-2 IgG Type Specific Less than 0.91 index (0.00-0.90)
[2018-03-19] MEDS: Albuterol Sulfate 1.25 MG/3 ML NEB NEB SCH ×4 (01:06→18:54)
[2018-03-19] MEDS: Cefepime 1 GM in Sodium Chloride 0.9% 100 ML IVPB SCH ×2 (04:49→16:56)
[2018-03-19] MEDS: Enoxaparin Sodium 40 MG/0.4 ML SYRINGE SC SCH (10:44)
[2018-03-19] MEDS: Famotidine 20 MG TAB PO SCH ×2 (10:44→20:54)
[2018-03-19] MEDS: Furosemide 20 MG TAB PO SCH ×2 (10:46→13:33)
[2018-03-19 14:28] LABS: CMV DNA-PCR Test Positive < 200 IU/mL (Negative)
--- NOTE | 2018-03-19 15:42 | PDOC.PN ---
- Subjective Encounter Start Date: 03/19/18 Encounter Start Time: 14:00 Subjective: sob is slowly getting better - Objective Resuscitation Status: Resuscitation Status FULL:Full Resuscitation MAR Reviewed: Yes Vital Signs & Weight: Vital Signs (12 hours) Temp Pulse Resp BP Pulse Ox 03/19/18 13:31 100 03/19/18 13:30 104 H 20 100 03/19/18 11:48 98.5 F 93 20 100/55 L 92 L 03/19/18 11:00 93 L 03/19/18 08:00 98.5 F 93 20 94/53 L 95 03/19/18 04:49 98.2 F 68 26 H 104/58 L 93 L Weight Weight 176 lb I&O: 03/18/18 03/19/18 03/20/18 06:59 06:59 06:59 Intake Total 3044 1938.0 Output Total 3060 1875 Balance -16 63.0 Result Diagrams: 03/16/18 07:43 03/17/18 05:44 Phys Exam - Physical Examination HEENT: PERRLA, moist MMs Neck: no JVD, supple Respiratory: no wheezing, no rales rhonchi++ Cardiovascular: RRR, no significant murmur Gastrointestinal: soft, non-tender, positive bowel sounds Musculoskeletal: no edema, pulses present Neurological: non-focal, moves all 4 limbs Psychiatric: normal affect, A&O x 3 Dx/Plan (1) AIDS (acquired immune deficiency syndrome) Status: Acute Comment: CD4 count of 14 (2) PNA (pneumonia) Code(s): J18.9 - PNEUMONIA, UNSPECIFIED ORGANISM Status: Acute Qualifiers: Pneumonia type: due to Pneumocystis jirovecii Laterality: bilateral (3) Sepsis Code(s): A41.9 - SEPSIS, UNSPECIFIED ORGANISM Status: Acute (4) Acute respiratory failure with hypoxia Code(s): J96.01 - ACUTE RESPIRATORY FAILURE WITH HYPOXIA Status: Acute Comment: on high flow O2 - Plan on high flow oxygen, steroids and nebs -: cefepime -: lasix -: to mobilize as tolerated in room * . Review of Systems - Medications/Allergies Allergies/Adverse Reactions: Allergies Allergy/AdvReac Type Severity Reaction Status Date / Time No Known Allergies Allergy Verified 03/15/18 03:05 Medications: Current Medications Acetaminophen (Tylenol) 650 mg PO Q4H PRN PRN Reason: Headache/Fever or Pain Last Admin: 03/18/18 14:30 Dose: 650 mg Albuterol Sulfate (Albuterol Sulfate) 1.25 mg NEB [id number] [facility] Last Admin: 03/19/18 13:30 Dose: 1.25 mg Enoxaparin Sodium (Lovenox) 40 mg SC 0900 [facility] Last Admin: 03/19/18 10:44 Dose: 40 mg Famotidine (Pepcid) 20 mg PO BID [facility] Last Admin: 03/19/18 10:44 Dose: 20 mg Furosemide (Lasix) 20 mg PO 0900,1400 [facility] Last Admin: 03/19/18 13:33 Dose: 20 mg Guaifenesin/Dextromethorphan (Robitussin Dm) 15 ml PO Q4H PRN PRN Reason: Cough Cefepime HCl 1 gm/ Sodium (Chloride) 100 mls @ 200 mls/hr IVPB 0400,1600 [facility] Last Admin: 03/19/18 04:49 Dose: 100 mls Sodium Chloride (Normal Saline 0.9%) 1,000 mls @ 50 mls/hr IV .Q20H [facility] Last Admin: 03/18/18 11:53 Dose: 1,000 mls Trimethoprim/Sulfamethoxazole (250 mg/ Dextrose/Water) 250 mls @ 166.667 mls/ hr IVPB Q6HR [facility] Last Admin: 03/19/18 13:32 Dose: 250 mls Methylprednisolone Sodium Succinate (Solu-Medrol) 20 mg IVP Q6HR [facility] Last Admin: 03/19/18 13:32 Dose: 20 mg Sodium Chloride (Flush - Normal Saline) 10 ml IVF Q12HR [facility] Last Admin: 03/19/18 10:46 Dose: Not Given Sodium Chloride (Flush - Normal Saline) 10 ml IVF PRN PRN PRN Reason: Saline Flush Last Admin: 03/17/18 14:18 Dose: 10 ml
[2018-03-19] MEDS: Sodium Chloride 0.9% 1,000 ML IV SCH ×2 (16:57→20:54)
--- NOTE | 2018-03-19 18:00 | PRG ---
DATE OF SERVICE: 03/19/2018 SUBJECTIVE: Feeling better. Finally able to eat breakfast without problems. Slept well. OBJECTIVE: VITAL SIGNS: T-max 98.5, still on high flow oxygen with maintaining O2 sat anywhere from 94-100, BP 101/56, pulse 88. GENERAL: Awake, alert, oriented. LUNGS: With faint basilar crackles. HEART: S1, S2, without murmurs. ABDOMEN: Soft, not distended. NEUROLOGIC: Nonfocal. LABORATORY DATA: The Fungitell assay is pending. CMV was less than 200. DNA PCR, histoplasma antig en less than 0.5. ASSESSMENT AND DISCUSSION: A newly diagnosed HIV infection with advanced immunosuppression, CD4 cell count less than 50 with likely pneumocystis pneumonia. Clear cut improvement. Continue Bactrim, So sae-Medrol, and probably tomorrow or the day after cut the Solu-Medrol dose by half. Consider switchi ng to oral prednisone. Continue Bactrim IV in another few days. Start antiretroviral therapy.
--- NOTE | 2018-03-19 18:51 | PRG ---
DATE OF SERVICE: 03/19/2018 Orestes Armijo continues to improve. He says he is feeling better. He is moving around a little more in the room with less dyspnea. He is down below 50% FiO2 now. PHYSICAL EXAMINATION: VITAL SIGNS: He is afebrile, heart rate is 88, respiratory rates in the 20s to 30s, if he starts mov ing, oximetry is 94%, blood pressure 101/56. LUNGS: Remarkable for fine crackles at the bases. CARDIOVASCULAR: Regular rhythm. ABDOMEN: Soft. IMPRESSION: Human immunodeficiency virus positive with pneumonia, presumably pneumocystis. Given radu s clinical improvement, will continue for now. His CD4 count was as expected very low at 14. He had a low CMV IgM titer. All of his hepatitis serology was negative. His Toxo IgM and IgG was negative. His strep pneumonia and legionella antigens were negative. His urine histoplasma antigen was negative. We will continue with current antimicrobial care and luis roids. He will likely be in the hospital at least 2 weeks as I have explained to him.
[2018-03-20] MEDS: Albuterol Sulfate 1.25 MG/3 ML NEB NEB SCH ×4 (00:08→18:46)
[2018-03-20] MEDS: Cefepime 1 GM in Sodium Chloride 0.9% 100 ML IVPB SCH ×2 (04:16→15:49)
[2018-03-20] MEDS: Famotidine 20 MG TAB PO SCH ×2 (08:30→21:40)
[2018-03-20] MEDS: Enoxaparin Sodium 40 MG/0.4 ML SYRINGE SC SCH (08:30)
[2018-03-20] MEDS: Furosemide 20 MG TAB PO SCH ×2 (08:30→14:14)
--- NOTE | 2018-03-20 17:14 | PRG ---
DATE OF SERVICE: 03/20/2018 SUBJECTIVE: Orestes Armijo is in no distress. OBJECTIVE: VITAL SIGNS: He is afebrile. Heart rate 88-101, respiratory rate is 20, oximetry is 95, still on hi gh flow nasal cannula, blood pressure 93/50. LUNGS: Remarkable for fine crackles at bases. HEART: Regular rhythm. ABDOMEN: Soft. IMPRESSION: Presumed pneumocystis pneumonia with HIV. He no longer needs telemetry monitoring. He i s clinically improved significantly. He will be transferred out of Intermediate Care Unit.
--- NOTE | 2018-03-20 19:08 | PDOC.PN ---
- Subjective Encounter Start Date: 03/20/18 Encounter Start Time: 15:00 Subjective: no sob, feels better - Objective Resuscitation Status: Resuscitation Status FULL:Full Resuscitation MAR Reviewed: Yes Vital Signs & Weight: Vital Signs (12 hours) Temp Pulse Resp BP Pulse Ox 03/20/18 18:48 98 03/20/18 18:46 102 H 22 H 98 03/20/18 17:48 97.8 F 90 20 92/50 L 96 03/20/18 16:03 95 03/20/18 12:44 97.7 F 103 H 20 92/50 L 03/20/18 12:05 101 H 20 95 03/20/18 08:32 98.0 F 88 20 92/50 L 93 L 03/20/18 08:00 98.0 F 88 20 93 L Weight Weight 176 lb I&O: 03/19/18 03/20/18 03/21/18 06:59 06:59 06:59 Intake Total 2738.0 2820 800 Output Total 2475 4550 2725 Balance 263.0 -1730 -1925 Result Diagrams: 03/16/18 07:43 03/17/18 05:44 Phys Exam - Physical Examination HEENT: PERRLA, moist MMs Neck: no JVD, supple Respiratory: no wheezing, no rales rhonchi++ Cardiovascular: RRR, no significant murmur Gastrointestinal: soft, non-tender, positive bowel sounds Musculoskeletal: no edema, pulses present Neurological: non-focal, moves all 4 limbs Psychiatric: normal affect, A&O x 3 Dx/Plan (1) AIDS (acquired immune deficiency syndrome) Status: Acute Comment: CD4 count of 14 (2) PNA (pneumonia) Code(s): J18.9 - PNEUMONIA, UNSPECIFIED ORGANISM Status: Acute Qualifiers: Pneumonia type: due to Pneumocystis jirovecii Laterality: bilateral (3) Sepsis Code(s): A41.9 - SEPSIS, UNSPECIFIED ORGANISM Status: Acute (4) Acute respiratory failure with hypoxia Code(s): J96.01 - ACUTE RESPIRATORY FAILURE WITH HYPOXIA Status: Acute Comment: on high flow O2 - Plan on cefepime and bactrim iv -: iv steroids, nebs and high flow oxygen -: HIV meds per advice including low CD4 prophylaxis -: continue lasix and gentle iv hydration for buffer * . Review of Systems - Medications/Allergies Allergies/Adverse Reactions: Allergies Allergy/AdvReac Type Severity Reaction Status Date / Time No Known Allergies Allergy Verified 03/15/18 03:05 Medications: Current Medications Acetaminophen (Tylenol) 650 mg PO Q4H PRN PRN Reason: Headache/Fever or Pain Last Admin: 03/18/18 14:30 Dose: 650 mg Albuterol Sulfate (Albuterol Sulfate) 1.25 mg NEB [id number] [facility] Last Admin: 03/20/18 18:46 Dose: 1.25 mg Enoxaparin Sodium (Lovenox) 40 mg SC 0900 [facility] Last Admin: 03/20/18 08:30 Dose: 40 mg Famotidine (Pepcid) 20 mg PO BID [facility] Last Admin: 03/20/18 08:30 Dose: 20 mg Furosemide (Lasix) 20 mg PO 0900,1400 [facility] Last Admin: 03/20/18 14:14 Dose: 20 mg Guaifenesin/Dextromethorphan (Robitussin Dm) 15 ml PO Q4H PRN PRN Reason: Cough Cefepime HCl 1 gm/ Sodium (Chloride) 100 mls @ 200 mls/hr IVPB 0400,1600 [facility] Last Admin: 03/20/18 15:49 Dose: 100 mls Sodium Chloride (Normal Saline 0.9%) 1,000 mls @ 50 mls/hr IV .Q20H [facility] Last Admin: 03/19/18 20:54 Dose: 1,000 mls Trimethoprim/Sulfamethoxazole (250 mg/ Dextrose/Water) 250 mls @ 166.667 mls/ hr IVPB Q6HR [facility] Last Admin: 03/20/18 18:27 Dose: 250 mls Methylprednisolone Sodium Succinate (Solu-Medrol) 20 mg IVP Q6HR [facility] Last Admin: 03/20/18 18:28 Dose: 20 mg Sodium Chloride (Flush - Normal Saline) 10 ml IVF Q12HR [facility] Last Admin: 03/20/18 08:37 Dose: Not Given Sodium Chloride (Flush - Normal Saline) 10 ml IVF PRN PRN PRN Reason: Saline Flush Last Admin: 03/17/18 14:18 Dose: 10 ml
[2018-03-21] MEDS: Albuterol Sulfate 1.25 MG/3 ML NEB NEB SCH ×3 (00:30→13:11)
[2018-03-21] MEDS: Cefepime 1 GM in Sodium Chloride 0.9% 100 ML IVPB SCH (03:18)
[2018-03-21] MEDS: Sodium Chloride 0.9% 1,000 ML IV SCH (05:44)
[2018-03-21] MEDS: Famotidine 20 MG TAB PO SCH ×2 (09:00→21:29)
[2018-03-21] MEDS: Furosemide 20 MG TAB PO SCH ×2 (09:00→12:33)
[2018-03-21] MEDS: Enoxaparin Sodium 40 MG/0.4 ML SYRINGE SC SCH (09:01)
--- NOTE | 2018-03-21 11:12 | PDOC.PN ---
- Subjective Encounter Start Date: 03/21/18 Encounter Start Time: 10:15 Subjective: no sob, feels better -: is on high flow oxygen -: has not had bm - Objective Resuscitation Status: Resuscitation Status FULL:Full Resuscitation MAR Reviewed: Yes Vital Signs & Weight: Vital Signs (12 hours) Temp Pulse Resp BP Pulse Ox 03/21/18 10:45 95 03/21/18 08:00 97 03/21/18 07:38 98.0 F 73 28 H 102/59 L 92 L 03/21/18 07:11 81 20 96 03/21/18 04:00 97.7 F 84 20 103/54 L 97 03/21/18 00:30 89 24 H 92 L 03/21/18 00:00 99.0 F 73 20 101/61 92 L Weight Weight 176 lb I&O: 03/20/18 03/21/18 03/22/18 06:59 06:59 06:59 Intake Total 2820 2200 Output Total 4550 4875 Balance -1730 -7501 Result Diagrams: 03/16/18 07:43 03/17/18 05:44 Phys Exam - Physical Examination HEENT: PERRLA, moist MMs Neck: no JVD, supple Respiratory: no wheezing, no rales rhonchi+ Cardiovascular: RRR, no significant murmur Gastrointestinal: soft, non-tender, positive bowel sounds Musculoskeletal: no edema, pulses present Neurological: non-focal, moves all 4 limbs Psychiatric: normal affect, A&O x 3 Dx/Plan (1) AIDS (acquired immune deficiency syndrome) Status: Acute Comment: CD4 count of 14 (2) PNA (pneumonia) Code(s): J18.9 - PNEUMONIA, UNSPECIFIED ORGANISM Status: Acute Qualifiers: Pneumonia type: due to Pneumocystis jirovecii Laterality: bilateral (3) Sepsis Code(s): A41.9 - SEPSIS, UNSPECIFIED ORGANISM Status: Acute (4) Acute respiratory failure with hypoxia Code(s): J96.01 - ACUTE RESPIRATORY FAILURE WITH HYPOXIA Status: Acute Comment: on high flow O2 - Plan on bactrim iv, steroids and cefepime -: nebs, high flow oxygen -: bowel regimen -: lasix to keep him on dry side to prevent ARDS -: may dc iv fluids, awaiting medical bed for tx from imcu * . HIV meds when he is more stable to prevent immune reconstitution syndrome, to add low CD4 prophylaxis meds. To ambulate as tolerated in room Review of Systems - Medications/Allergies Allergies/Adverse Reactions: Allergies Allergy/AdvReac Type Severity Reaction Status Date / Time No Known Allergies Allergy Verified 03/15/18 03:05 Medications: Current Medications Acetaminophen (Tylenol) 650 mg PO Q4H PRN PRN Reason: Headache/Fever or Pain Last Admin: 03/18/18 14:30 Dose: 650 mg Albuterol Sulfate (Albuterol Sulfate) 1.25 mg NEB [id number] [facility] Last Admin: 03/21/18 07:11 Dose: 1.25 mg Enoxaparin Sodium (Lovenox) 40 mg SC 0900 [facility] Last Admin: 03/21/18 09:01 Dose: 40 mg Famotidine (Pepcid) 20 mg PO BID [facility] Last Admin: 03/21/18 09:00 Dose: 20 mg Furosemide (Lasix) 20 mg PO 0900,1400 [facility] Last Admin: 03/21/18 09:00 Dose: 20 mg Guaifenesin/Dextromethorphan (Robitussin Dm) 15 ml PO Q4H PRN PRN Reason: Cough Cefepime HCl 1 gm/ Sodium (Chloride) 100 mls @ 200 mls/hr IVPB 0400,1600 [facility] Last Admin: 03/21/18 03:18 Dose: 100 mls Sodium Chloride (Normal Saline 0.9%) 1,000 mls @ 50 mls/hr IV .Q20H [facility] Last Admin: 03/21/18 05:44 Dose: 1,000 mls Trimethoprim/Sulfamethoxazole (250 mg/ Dextrose/Water) 250 mls @ 166.667 mls/ hr IVPB Q6HR [facility] Last Admin: 03/21/18 05:45 Dose: 250 mls Methylprednisolone Sodium Succinate (Solu-Medrol) 20 mg IVP Q6HR [facility] Last Admin: 03/21/18 05:42 Dose: 20 mg Sodium Chloride (Flush - Normal Saline) 10 ml IVF Q12HR [facility] Last Admin: 03/21/18 09:02 Dose: Not Given Sodium Chloride (Flush - Normal Saline) 10 ml IVF PRN PRN PRN Reason: Saline Flush Last Admin: 03/17/18 14:18 Dose: 10 ml
[2018-03-21] MEDS ORDERED: Furosemide 40 MG/4 ML VIAL IVP SCH (15:15)
--- NOTE | 2018-03-21 17:04 | PRG ---
DATE OF SERVICE: 03/21/2018 Orestes Armijo says he is feeling better. We had him on nasal cannula for a short period of time today, but we had to go back on the high flow cannula. He has been in negative fluid balance but could probably diurese more after I have examined him and l ooked at his lab work. He does still have diffuse crackles on exam which I am sure some of this is n oncardiogenic edema. He remains in a regular rhythm. He has mild resting tachycardia. Abdomen is soft and nontender. IMPRESSION: Presumed pneumocystis with HIV, clinically improving. Try diuresing a little more aggre ssively and see if this helps with his gas exchange.
--- NOTE | 2018-03-21 18:19 | PRG ---
DATE OF SERVICE: 03/21/2018 SUBJECTIVE: Still having a lot of desaturation when he was transitioned to just a regular nasal chapis antonina. Had to be brought back to a high-flow nasal cannula and is back to 94 while he is eating dinner . No headaches, no chest pain, no abdominal pain, no diarrhea. OBJECTIVE: VITAL SIGNS: T-max 98.6, blood pressure 105/56, pulse 114, respirations 22-28, O2 sat is now 94. GENERAL: Awake, alert, oriented. LUNGS: With faint basilar crackles, otherwise symmetric lung sounds. HEART: S1, S2, regular rate. ABDOMEN: Soft, not distended. NEUROLOGIC: Nonfocal. LABORATORY DATA: The Fungitell assay was elevated at 435, confirming the pneumocystis diagnosis. Pn eumocystis DNA PCR is pending. ASSESSMENT AND DISCUSSION: Advanced human immunodeficiency virus infection likely pneumocystis pneum onia. DISCUSSION: The patient to continue on Bactrim and Solu-Medrol, increase Bactrim dose to 300 mg q.6 hours. Somewhat delayed response. In the next few days, we will consider starting antiretroviral th erapy. No other opportunistic infections are apparent at this time.
[2018-03-21] MEDS: Docusate 100 MG CAP PO SCH (21:29)
[2018-03-22 04:15] LABS: Magnesium 2.3 mg/dL (1.6-2.6); Phosphorus 4.5 mg/dL (2.3-4.7)
[2018-03-22] MEDS: Sodium Chloride 0.9% 1,000 ML IV SCH (06:02)
[2018-03-22] MEDS: Polyethylene Glycol 3350 17 GM Packet PO SCH (08:56)
[2018-03-22] MEDS: Furosemide 20 MG/2 ML VIAL SLOW IVP SCH (08:57)
[2018-03-22] MEDS: Enoxaparin Sodium 40 MG/0.4 ML SYRINGE SC SCH (08:57)
[2018-03-22] MEDS: Famotidine 20 MG TAB PO SCH ×2 (08:57→20:41)
[2018-03-22] MEDS: Docusate 100 MG CAP PO SCH ×2 (08:57→20:41)
--- NOTE | 2018-03-22 10:57 | PDOC.PN ---
- Subjective Encounter Start Date: 03/22/18 Encounter Start Time: 10:55 Feels ok. Primary concern is the constipation. Has receive multiple meds. Breathing ok. - Objective Resuscitation Status: Resuscitation Status FULL:Full Resuscitation Vital Signs & Weight: Vital Signs (12 hours) Temp Pulse Resp BP Pulse Ox 03/22/18 08:34 91 L 03/22/18 08:10 95 20 03/22/18 08:00 91 L 03/22/18 07:13 98.4 F 86 24 H 98/53 L 91 L 03/22/18 03:00 98.2 F 88 30 H 95/57 L 93 L 03/22/18 00:00 98.6 F 89 28 H 90 L Weight Weight 176 lb I&O: 03/21/18 03/22/18 03/23/18 06:59 06:59 06:59 Intake Total 2200 2830 Output Total 4875 3550 Balance -0945 -503 Result Diagrams: 03/16/18 07:43 03/17/18 05:44 Phys Exam - Physical Examination Constitutional: NAD Respiratory: no wheezing, no rales, no rhonchi borderline tachypneic Cardiovascular: RRR, no significant murmur, no rub Gastrointestinal: soft, non-tender, no distention, positive bowel sounds Musculoskeletal: no edema Dx/Plan (1) AIDS (acquired immune deficiency syndrome) Status: Acute Comment: CD4 count of 14. Anti-retrovirals when stable. (2) Acute respiratory failure with hypoxia Code(s): J96.01 - ACUTE RESPIRATORY FAILURE WITH HYPOXIA Status: Acute Comment: on high flow O2. Followed by Pulmonary. Still has high oxygen requirements. (3) PNA (pneumonia) Code(s): J18.9 - PNEUMONIA, UNSPECIFIED ORGANISM Status: Acute Qualifiers: Pneumonia type: due to Pneumocystis jirovecii Laterality: bilateral Comment: Likely PCP. Bactrim, steroids. (4) Sepsis Code(s): A41.9 - SEPSIS, UNSPECIFIED ORGANISM Status: Resolved (5) Constipation Code(s): K59.00 - CONSTIPATION, UNSPECIFIED Status: Acute Comment: Has several meds. Good bowel sounds and non-tender/distended to palp. - Plan * above.
--- NOTE | 2018-03-22 12:16 | PRG ---
DATE OF SERVICE: 03/22/2018 Mr. Armijo is doing well. He is still on high flow cannula. PHYSICAL EXAMINATION: VITAL SIGNS: His oximetry is 91-92% on 30%. His heart rate 95, respiratory rate is 20, blood pressu re 90/53. LUNGS: Remarkable for crackles at both bases still. HEART: Regular rhythm. He had a negative 720 diuresis yesterday. IMPRESSION: 1. Pneumocystis pneumonia, presumed 2. Human immunodeficiency virus positive with a low T4 count. PLAN: Continue current care with assistance of Infectious Disease.
--- NOTE | 2018-03-22 18:27 | PRG ---
DATE OF SERVICE: 03/22/2018 SUBJECTIVE: Still quite dyspneic at rest, having some abdominal cramps. No bowel movement yet. Voi ding without difficulty. No chest pain. OBJECTIVE: VITAL SIGNS: Temperature max 99, blood pressure 104/62, pulse 102, respirations 28, O2 sat 91%. GENERAL: Awake, alert, oriented, high flow nasal cannula. LUNGS: With symmetric air entry with faint basilar crackles. HEART: S1, S2, regular rate. ABDOMEN: Soft, not distended, increased bowel sounds noted. MUSCULOSKELETAL: No joint inflammatory activity. NEUROLOGIC: Nonfocal. LABORATORY DATA: Sodium 136, creatinine 0.66, magnesium 2.3. White cell count 15.2 a few days ago, hemoglobin 14.2, platelets 244. 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 We will start antiretroviral therapy with Isentress plus Truvada and w e will add caspofungin to the regimen. Contact the pharmacist since this will require a nonformulary approval. Caspofungin is more active against the pneumocystis than micafungin, which is the formula ry agent in the hospital.
[2018-03-22] MEDS: Raltegravir Potassium 400 MG TAB PO SCH (20:42)
[2018-03-22] MEDS: Fleet Enema 133 ML BOT FS PRN (20:56)
[2018-03-22] MEDS ORDERED: CASPOFUNGIN FS SCH (21:00)
[2018-03-22] MEDS ORDERED: NORMAL SALINE FS SCH (21:00)
[2018-03-23] MEDS: Sodium Chloride 0.9% 1,000 ML IV SCH (01:13)
[2018-03-23 04:10] LABS: #Basophils 0.1 thou/uL (0.0-0.2); #Eosinphils 0.5 thou/uL (0.0-0.7); #Lymphocytes 0.5 thou/uL (1.20-3.40); #Monocytes 0.8 thou/uL (0.11-0.59); #Neutrophils 10.9 thou/uL (1.40-6.50); %Basophils 0.9 % (0.0-1.0); %Eosinophils 3.5 % (0.0-10.0); %Lymphocytes 4.2 % (21.0-51.0); %Monocytes 6.5 % (0.0-10.0); %Neutrophils 84.9 % (42.0-75.0); Mean Corpuscular HGB CONC 34.6 g/dL (32.0-36.0); Mean Corpuscular Hemoglobin 30.2 pg (27.0-31.0); Mean Corpuscular Volume 87.1 fL (78.0-98.0); Mean Platelet Volume 7.9 fL (7.4-10.4); Platelet Count 337 thou/uL (130-400); RBC Distribution Width 12.8 % (11.5-14.5); Red Blood Cell (RBC) Count 4.98 mill/uL (4.70-6.10); White Blood Cell (WBC) Count 12.8 thou/uL (4.8-10.8)
[2018-03-23 04:19] LABS: Anion Gap 12 mmol/L (10-20); BUN (Urea Nitrogen) 15 mg/dL (8.9-20.6); Calc. Creatinine Clearance 162 mL/min (70-130); Calcium 8.2 mg/dL (7.8-10.44); Carbon Dioxide 27 mmol/L (22-29); Chloride 95 mmol/L (98-107); Estimated GFR-MDRD Greater than 90; Glucose 94 mg/dL (70-105); Potassium 4.4 mmol/L (3.5-5.1); Sodium 130 mmol/L (136-145)
[2018-03-23] MEDS: Raltegravir Potassium 400 MG TAB PO SCH ×2 (08:33→20:19)
[2018-03-23] MEDS: Enoxaparin Sodium 40 MG/0.4 ML SYRINGE SC SCH (08:33)
[2018-03-23] MEDS: Famotidine 20 MG TAB PO SCH ×2 (08:33→20:19)
[2018-03-23] MEDS: Docusate 100 MG CAP PO SCH ×2 (08:34→20:19)
[2018-03-23] MEDS: Emtricitabine/Tenofovir 200-300 MG TAB PO SCH (08:34)
[2018-03-23] MEDS: Polyethylene Glycol 3350 17 GM Packet PO SCH (08:34)
[2018-03-23] MEDS: Furosemide 20 MG/2 ML VIAL SLOW IVP SCH (08:34)
--- NOTE | 2018-03-23 10:15 | PRG ---
DATE OF SERVICE: 03/23/2018 SUBJECTIVE: The patient did have a bowel movement and is feeling better. His abdomen is much more c omfortable. Still feels a little short of breath, but tolerating that well. He has been up in the c hair a couple times, feels like he breathes better in the chair than he does in the bed. OBJECTIVE: VITAL SIGNS: Temperature is 98.0, pulse 95, respirations 22, O2 sat 89%-95% on high-flow nasal cannu la, BP 96/59. GENERAL: Age-appropriate male in no distress. He is awake, alert, oriented, pleasant, cooperative. HEART: Regular rate and rhythm without murmurs. LUNGS: Have mild fine scattered rales with fair air exchange. ABDOMEN: Soft, nontender, nondistended. EXTREMITIES: Warm and dry without edema. LABORATORY DATA: White count 12.8, hemoglobin 15.0, platelets 337. Sodium 130, potassium 4.4, chlor joann 95. IMPRESSION AND PLAN: 1. Pneumonia, likely pneumocystis pneumonia. Dr. Payne has added some caspofungin to the regimen. In the meantime, continuing with Solu-Medrol and high-dose Bactrim, on aggressive oxygen support. 2. Human immunodeficiency virus. Dr. Payne has added antiretroviral medications with Isentress and Truvada. 3. Constipation, improved. Continue with the bowel regimen. 4. Per the patient's request, we will give him documentation that he will not be able to travel ____ _.
--- NOTE | 2018-03-23 12:32 | PRG ---
DATE OF SERVICE: 03/23/2018 SERVICE: Pulmonary Medicine. INTERVAL HISTORY: The patient is doing fine from a respiratory standpoint. We will wean down his FiO2 slowly. He denies any current chest pain, nausea, vomiting, fevers or chills. Otherwise, there has been no interval change to his condition. Nursing reports no overnight events. PHYSICAL EXAMINATION: VITAL SIGNS: Afebrile with a T-max of 99.2, pulse 102, blood pressure 102/58, respirations 22, saturation 95% on high flow nasal cannula with 35% FiO2. GENERAL: Patient is awake, alert, no apparent distress. LUNGS: Bilateral crackles are present on inspiration and expiration. No wheezing or rhonchi are appreciated. HEART: Normal rate, regular. ABDOMEN: Soft, nontender, nondistended. Bowel sounds are positive. MUSCULOSKELETAL: No cyanosis or clubbing. There is no pitting in the bilateral lower extremities. NEUROLOGIC: Grossly nonfocal. LABORATORY DATA: WBC 12.8, hemoglobin 15.0, platelets 337,000. Basic metabolic profile is essentially unremarkable except for sodium of 130. Magnesium and phosphorus were previously unremarkable. CD4 count was low. HIV positive. Beta D glucan is significantly elevated. Blood cultures x2 are unremarkable. Cryptococcal antigen is negative. AFB smear is negative in the blood: ASSESSMENT AND PLAN: 1. HIV with AIDS. 2. PJP pneumonia. 3. Acute hypoxic respiratory failure, slowly improving. DISCUSSION AND PLAN: The patient will be continued on his antibiotics. We will wean FIO2 down as tolerated. From my perspective, he is stable for transition to the medical unit. We will watch for immune reconstitution syndrome in the future. He empirically already got antibacterial coverage previously. If he develops increasing infectious syndrome, empiric antifungal coverage will be considered. Pulmonary or Critical Care will continue to follow. UNIQUE
[2018-03-23 12:58] LABS: Sodium 126 mmol/L (136-145)
--- NOTE | 2018-03-23 14:12 | RAD ---
CHEST 1 VIEW: Date: 03/23/18 COMPARISON: 03/18/18. HISTORY: Follow-up pneumonia. FINDINGS: Persistent opacification of the lung bases, left greater than right. Stable configuration of cardiac silhouette. No pneumothorax or osseous abnormalities. IMPRESSION: Persistent bibasilar infiltrates. POS: PPP
[2018-03-23] MEDS: Acetaminophen 325 MG TAB PO PRN ×2 (15:29→23:39)
[2018-03-23 18:17] LABS: Osmolality, Urine 495 mOsm/kg (300-900)
[2018-03-23 18:21] LABS: Sodium, Urine 34 mmol/L (Not Available)
[2018-03-23 19:49] LABS: Sodium 128 mmol/L (136-145)
[2018-03-23] MEDS ORDERED: Conivaptan 20 MG in Premix Bag 1 BAG IVPB SCH ×2 (20:30→21:00)
[2018-03-23] MEDS: NORMAL SALINE FS SCH (20:49)
[2018-03-23] MEDS ORDERED: SODIUM CHLORIDE 0.9% IVPB ONE (20:49)
[2018-03-23] MEDS ORDERED: CASPOFUNGIN ACETATE IVPB ONE (20:49)
[2018-03-23] MEDS: CASPOFUNGIN FS SCH (20:49)
--- NOTE | 2018-03-24 01:19 | CON ---
DATE OF CONSULTATION: 03/23/2018 CONSULTING PHYSICIAN: Carine Rokc M.D. REQUESTING PHYSICIAN: Sukumar Cardenas M.D. REASON FOR CONSULTATION: Hyponatremia. IMPRESSION: Hyponatremia. This is likely in the context of syndrome of inappropriate antidiuretic h ormone due to pulmonary pathology. PLAN: 1. 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 Sally se monitoring of the sodium level as patient resume these Vaprisol infusion. 2. We will discuss with pharmacy if possible to mix Bactrim in a different solution as opposed to th e current 5% dextrose water that is being used in this patient with syndrome of inappropriate antidiu retic hormone. 3. Further management will be dependent on the clinical course. HISTORY OF PRESENT ILLNESS: History is that of 27-year-old gentleman who presented with cough and co ngestion of about 3 weeks duration, not responding to any form of antimicrobial therapy. The patient evaluated and noted to be positive history of HIV and a significant code noted. The patient is now being treated for PCP. The patient presented with normal serum sodium; however, over the past 2 days , sodium has dropped down to 126, today possible need for renal consultation. PAST MEDICAL HISTORY: Pretty much unremarkable. FAMILY HISTORY: None significantly related to presenting complaint. SOCIAL HISTORY: Significant for occasional marijuana use. 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 REVIEW OF SYSTEMS: As documented in the body of the history. All other systems were reviewed and fo und not to be significantly related to the presenting complaint. LABORATORY INVESTIGATION: Significant for sodium of 126. PHYSICAL EXAMINATION: GENERAL: The patient was found not to be in any physical distress with some respiratory distress and noted with the following vital signs. VITAL SIGNS: Afebrile, temperature 99, pulse 107, respiratory rate of 32, O2 sat of 88%-89% with blo od pressure of 97/52. HEENT: Remarkable for high flow nasal cannula in place. CARDIOVASCULAR SYSTEM: First and second heart sounds were heard. RESPIRATORY SYSTEM: Clear to auscultation. DIGESTIVE SYSTEM: Revealed a benign abdomen with positive bowel sounds. EXTREMITIES: No peripheral edema. SKIN: No new gross rash. LYMPHATICS: No peripheral lymphadenopathy. SUMMARY: A 27-year-old gentleman who got admitted with shortness of breath and got diagnosed with ad vanced HIV/AIDS, now experiencing worsening hyponatremia. Thank you for this consultation. We will follow with you.
[2018-03-24 01:25] LABS: Sodium 130 mmol/L (136-145)
[2018-03-24] MEDS: Acetaminophen 325 MG TAB PO PRN ×2 (06:28→21:09)
[2018-03-24 07:26] LABS: Sodium 129 mmol/L (136-145)
[2018-03-24] MEDS: Famotidine 20 MG TAB PO SCH ×2 (08:22→21:09)
[2018-03-24] MEDS: Enoxaparin Sodium 40 MG/0.4 ML SYRINGE SC SCH (08:22)
[2018-03-24] MEDS: Docusate 100 MG CAP PO SCH ×2 (08:23→21:09)
[2018-03-24] MEDS: Raltegravir Potassium 400 MG TAB PO SCH ×2 (08:23→21:09)
[2018-03-24] MEDS: Polyethylene Glycol 3350 17 GM Packet PO SCH (08:23)
[2018-03-24] MEDS: Emtricitabine/Tenofovir 200-300 MG TAB PO SCH (08:23)
[2018-03-24] MEDS: DEXTROSE 5% IVPB SCH (09:31)
[2018-03-24] MEDS: PENTAMIDINE IVPB SCH (09:31)
[2018-03-24] MEDS: WATER IVPB SCH (09:31)
--- NOTE | 2018-03-24 13:44 | PRG ---
DATE OF SERVICE: 03/24/2018 SERVICE: Pulmonary Medicine. INTERVAL HISTORY: The patient is doing great from a respiratory standpoint. He is breathing comfortably. Overnight, he had multiple fevers. He was started on antifungal medication, which I think is perfectly appropriate. This morning, he woke up, and he is actually feeling much improved. He denies any recent fevers. He is not having any night sweats and he is able to talk in full sentences. We have been able to wean his FiO2 down to 55%. PHYSICAL EXAMINATION: VITAL SIGNS: Afebrile, pulse 95, blood pressure 95/51, respirations 16, saturation 92% on 45% FiO2. GENERAL: Patient is awake and alert, in no apparent distress. LUNGS: Decent air entry with crackles. No prolonged expiratory phase or wheezing appreciated. HEART: Normal rate, regular. ABDOMEN: Soft, nontender, nondistended. Bowel sounds are positive. MUSCULOSKELETAL: No cyanosis or clubbing. There is no pitting in the bilateral lower extremities. NEUROLOGIC: Grossly nonfocal. LABORATORY DATA: Sodium has ranged from 126-129, but are stabilizing slightly. Whnb-N-ugsrys is abnormal IMAGING: X-ray demonstrates bibasilar infiltrates, left is greater than right. ASSESSMENT: 1. Human immunodeficiency virus with acquired immunodeficiency syndrome. 2. Pneumocystis jiroveci pneumonia. 3. Acute hypoxic respiratory failure, slowly improving. 4. Immune reconstitution syndrome, possible. DISCUSSION AND PLAN: We will continue our empiric antibiotics. His sodiums have stabilized a little bit with the addition of conivaptan. Pulmonary and Critical Care will continue to follow along in this location. I would like the patient to be monitored in the ICU for an additional period of 24 hours. If tomorrow morning, his sodiums are stable, he can be considered for transition to the floor. I will repeat a CBC, and a basic metabolic profile with tomorrow morning laboratories. UNIQUE
--- NOTE | 2018-03-24 14:41 | PDOC.PN ---
- Subjective Encounter Start Date: 03/24/18 Encounter Start Time: 09:05 Stable. No new complaints. Has been up and out of bed to chair as tolerated. - Objective Resuscitation Status: Resuscitation Status FULL:Full Resuscitation Vital Signs & Weight: Vital Signs (12 hours) Temp Pulse Resp BP BP Pulse Ox 03/24/18 12:00 90 L 03/24/18 10:42 92 L 03/24/18 10:40 100 25 H 92 L 03/24/18 08:48 98.1 F 95 16 95/51 L 90 L 03/24/18 08:00 90 L 03/24/18 07:31 89 L 03/24/18 07:28 107 H 26 H 89 L 03/24/18 06:25 103.2 F H 117 H 36 H 88 L 03/24/18 04:00 88 L 03/24/18 03:30 99.2 F 96 32 H 105/66 88 L Weight Weight 166 lb 3 oz I&O: 03/23/18 03/24/18 03/25/18 06:59 06:59 06:59 Intake Total 4290 2310 Output Total 3675 4125 Balance 615 -1815 Result Diagrams: 03/23/18 03:38 03/24/18 07:05 Phys Exam - Physical Examination Constitutional: NAD high flow NC oxygen. Respiratory: no wheezing, no rales, no rhonchi Very fine scattered rales. Cardiovascular: RRR, no significant murmur, no rub Gastrointestinal: soft, non-tender, no distention, positive bowel sounds Musculoskeletal: no edema Psychiatric: normal affect, A&O x 3 Dx/Plan (1) AIDS (acquired immune deficiency syndrome) Status: Acute Comment: CD4 count of 14. Anti-retrovirals started (2) Acute respiratory failure with hypoxia Code(s): J96.01 - ACUTE RESPIRATORY FAILURE WITH HYPOXIA Status: Acute Comment: on high flow O2. Followed by Pulmonary. Still has high oxygen requirements. (3) PNA (pneumonia) Code(s): J18.9 - PNEUMONIA, UNSPECIFIED ORGANISM Status: Acute Qualifiers: Pneumonia type: due to Pneumocystis jirovecii Laterality: bilateral Comment: Likely PCP. Bactrim, Caspofuncing, steroids. (4) Sepsis Code(s): A41.9 - SEPSIS, UNSPECIFIED ORGANISM Status: Resolved (5) Constipation Code(s): K59.00 - CONSTIPATION, UNSPECIFIED Status: Acute Comment: Had results. Has several meds. Good bowel sounds and non-tender/distended to palp. 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 Nephrology following. On Conivaptan. Will likely be a challenge as long as the pneumonia persists. - Plan * above.
--- NOTE | 2018-03-24 15:08 | PRG ---
DATE OF SERVICE: 03/24/2018 SUBJECTIVE: Still with high flow oxygen, sitting up in bed, had some exacerbation of fever up to 103 twice, he is now 98.1. He does not appear in any distress. Awake, oriented. No headaches, no visual symptoms, sore throat, odynophagia, or dysphagia. Moderate dyspnea, no chest pain, not much cough. No abdominal pain, maybe a little bit of abdominal pain in the epigastric area, left upper quadrant which he grades at 1/10. Voiding without difficulty. No diarrhea, no joint symptoms. OBJECTIVE: VITAL SIGNS: T-max 103, blood pressure 95/51, O2 sats ranging from 90%-92%. SKIN: Normal. No lymphadenopathy. HEENT: Ocular movements conjugate. Oral cavity moist. NECK: Supple. LUNGS: With inspiratory crackles at the bases. HEART: S1, S2, regular rate. No S3 or S4. ABDOMEN: Soft, not distended or tender, maybe mild tenderness in the left upper quadrant. No joint inflammatory activity. EXTREMITIES: He moves extremities equally. LABORATORY DATA AND IMAGING: White cell count is 12.8, hemoglobin 15, platelets 337, 84% neutrophils. Sodium has been with a downward trend and treatment has been initiated by Nephrology. There is no other new pieces of information in addition to what we had commented regarding the lab results. Repeat chest x-ray showed opacification lung bases, left greater than right, stable configuration cardiac silhouette. ASSESSMENT AND DISCUSSION: Advanced human immunodeficiency virus infection, CD4 16 with likely pneumocystis pneumonia with delayed response, complications from Bactrim including hyponatremia (SIADH + free water volume). This is the 8th day of therapy, still with not much improvement in the marginal oxygenation. Patient has been transitioned to pentamidine from Bactrim to help deal with the adverse reactions plus the fact that there has not been a meaningful response just yet. I have also added caspofungin, which has activity against pneumocystis. Antiretroviral therapy has been started around the 7th day as recommended by guidelines and hopefully we will see now with some improvement going forward. The possibility of an alternate process is less likely, all the assays have been negative thus far. MTDD
--- NOTE | 2018-03-24 20:52 | PRG ---
DATE OF SERVICE: 03/24/2018 SUBJECTIVE: The patient was seen and examined, noted with the following vital signs. OBJECTIVE: VITAL SIGNS: Afebrile with temperature 99.1, pulse 97, respiratory rate of 24, O2 sat of 94% on high -flow nasal cannula. HEENT: Remarkable for high-flow nasal cannula in place. CARDIOVASCULAR: First and second heart sounds were heard. RESPIRATORY: Some scattered rales. DIGESTIVE: Benign abdomen. EXTREMITIES: No peripheral edema. LABORATORY INVESTIGATION: Sodium between 129 to 130. IMPRESSION: 1. Hyponatremia in the context of syndrome of inappropriate antidiuretic hormone secretion due to pn eumonitis with PCP. 2. Pneumonitis with PCP. 3. Advanced human immunodeficiency virus/acquired immunodeficiency syndrome. PLAN: 1. We will continue with IV Vaprisol and monitor the sodium level closely and adjust accordingly. 2. High-protein diet in the way of animal meat. 3. Free water ingestion to be reduced, especially as he relates to getting about 2 liters of 5% dext alondra water with 1 antibiotic infusion. 4. Further management will be dependent on the clinical course.
[2018-03-24] MEDS ORDERED: SODIUM CHLORIDE 0.9% IVPB ONE (22:05)
[2018-03-24] MEDS: CASPOFUNGIN FS SCH (22:05)
[2018-03-24] MEDS ORDERED: CASPOFUNGIN ACETATE IVPB ONE (22:05)
[2018-03-24] MEDS: NORMAL SALINE FS SCH (22:05)
[2018-03-25 05:06] LABS: #Eosinphils 0.5 thou/uL (0.0-0.7); #Lymphocytes 0.8 thou/uL (1.20-3.40); #Monocytes 0.5 thou/uL (0.11-0.59); #Neutrophils 8.9 thou/uL (1.40-6.50); %Eosinophils 4.6 % (0.0-10.0); %Lymphocytes 7.2 % (21.0-51.0); %Monocytes 4.6 % (0.0-10.0); %Neutrophils 83.6 % (42.0-75.0); Hemoglobin 13.6 g/dL (14.0-18.0); Mean Corpuscular HGB CONC 34.5 g/dL (32.0-36.0); Mean Corpuscular Hemoglobin 30.4 pg (27.0-31.0); Mean Corpuscular Volume 88.2 fL (78.0-98.0); Mean Platelet Volume 7.9 fL (7.4-10.4); Platelet Count 237 thou/uL (130-400); RBC Distribution Width 12.7 % (11.5-14.5); Red Blood Cell (RBC) Count 4.48 mill/uL (4.70-6.10); White Blood Cell (WBC) Count 10.7 thou/uL (4.8-10.8)
[2018-03-25 05:51] LABS: Anion Gap 11 mmol/L (10-20); BUN (Urea Nitrogen) 10 mg/dL (8.9-20.6); Calc. Creatinine Clearance 141 mL/min (70-130); Calcium 8.4 mg/dL (7.8-10.44); Carbon Dioxide 27 mmol/L (22-29); Chloride 100 mmol/L (98-107); Estimated GFR-MDRD Greater than 90; Glucose 91 mg/dL (70-105); Potassium 4.2 mmol/L (3.5-5.1); Sodium 134 mmol/L (136-145)
[2018-03-25] MEDS: Emtricitabine/Tenofovir 200-300 MG TAB PO SCH (09:05)
[2018-03-25] MEDS: Raltegravir Potassium 400 MG TAB PO SCH ×2 (09:05→21:19)
[2018-03-25] MEDS: Polyethylene Glycol 3350 17 GM Packet PO SCH (09:05)
[2018-03-25] MEDS: Famotidine 20 MG TAB PO SCH ×2 (09:05→21:19)
[2018-03-25] MEDS: Enoxaparin Sodium 40 MG/0.4 ML SYRINGE SC SCH (09:05)
[2018-03-25] MEDS: Docusate 100 MG CAP PO SCH ×2 (09:06→21:19)
[2018-03-25] MEDS: PENTAMIDINE IVPB SCH (09:07)
[2018-03-25] MEDS: DEXTROSE 5% IVPB SCH (09:07)
[2018-03-25] MEDS: WATER IVPB SCH (09:07)
--- NOTE | 2018-03-25 10:12 | PDOC.PN ---
- Subjective Encounter Start Date: 03/25/18 Encounter Start Time: 10:10 Feeling ok. Had BM. Feels like he is getting better. - Objective Resuscitation Status: Resuscitation Status FULL:Full Resuscitation Vital Signs & Weight: Vital Signs (12 hours) Temp Pulse Resp BP Pulse Ox 03/25/18 08:00 90 L 03/25/18 07:36 99.4 F 98 22 H 106/55 L 90 L 03/25/18 07:19 95 20 03/25/18 03:47 98.0 F 78 22 H 92/48 L 91 L Weight Weight 160 lb 8 oz I&O: 03/24/18 03/25/18 03/26/18 06:59 06:59 06:59 Intake Total 2310 2889 Output Total 4128 3785 Balance -181 Result Diagrams: 03/25/18 03:43 03/25/18 03:43 Phys Exam - Physical Examination Constitutional: NAD Tachypnea Respiratory: no wheezing Minimal scattered rhonchi Cardiovascular: RRR, no significant murmur, no rub Gastrointestinal: soft, non-tender, no distention, positive bowel sounds Musculoskeletal: no edema Psychiatric: normal affect, A&O x 3 Dx/Plan (1) AIDS (acquired immune deficiency syndrome) Status: Acute Comment: CD4 count of 14. Anti-retrovirals started (2) Acute respiratory failure with hypoxia Code(s): J96.01 - ACUTE RESPIRATORY FAILURE WITH HYPOXIA Status: Acute Comment: on high flow O2. Followed by Pulmonary. Still has high oxygen requirements. (3) PNA (pneumonia) Code(s): J18.9 - PNEUMONIA, UNSPECIFIED ORGANISM Status: Acute Qualifiers: Pneumonia type: due to Pneumocystis jirovecii Laterality: bilateral Comment: Likely PCP. Bactrim, Caspofuncing, steroids. (4) Sepsis Code(s): A41.9 - SEPSIS, UNSPECIFIED ORGANISM Status: Resolved (5) Constipation Code(s): K59.00 - CONSTIPATION, UNSPECIFIED Status: Acute Comment: Had results. Has several meds. Good bowel sounds and non-tender/distended to palp. (6) Hyponatremia Code(s): E87.1 - HYPO-OSMOLALITY AND HYPONATREMIA Status: Acute Comment: Better today. 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 Nephrology following. On Conivaptan. Will likely be a challenge as long as the pneumonia persists. - Plan * above.
[2018-03-25] MEDS ORDERED: Furosemide 40 MG/4 ML VIAL SLOW IVP SCH (14:30)
[2018-03-25] MEDS: Acetaminophen 325 MG TAB PO PRN (14:38)
--- NOTE | 2018-03-25 16:28 | PRG ---
DATE OF SERVICE: 03/25/2018 SUBJECTIVE: No headaches, no visual symptoms. Mildly dyspneic. No chest pain , no vomiting. Ate breakfast and lunch. No abdominal pain or diarrhea. Voiding without difficulty. OBJECTIVE: VITAL SIGNS: T-max 99.4, blood pressure 111/63, pulse 123 actually ranges from 98-123, O2 sat 90%. GENERAL: Awake, alert, oriented. LUNGS: Faint crackles at the bases. Symmetric breath sounds. HEART: S1, S2, regular rate. ABDOMEN: Soft and not distended or tender. EXTREMITIES: Moves all extremities equally. IMAGING: Repeat chest x-ray from two days ago with persistent bibasilar infiltrates. LABORATORY DATA: White cell count 10.7, hemoglobin 13.6, platelets 237. Sodium 134, creatinine 0.82. ASSESSMENT AND DISCUSSION: Advanced human immunodeficiency virus infection with likely pneumocystis pneumonia, delayed response, adverse reactions to Bactrim related to SIADH and the volume of free water administered, improving now with reduction of the volume infusion room and free water administration plus conivaptan. Continue caspofungin and pentamidine and corticosteroids. Hoping that it turns around in terms of his desaturation and allows reduction of the oxygen supplementation. MTDD
[2018-03-25] MEDS: SODIUM CHLORIDE 0.9% IVPB SCH (21:18)
[2018-03-25] MEDS: CASPOFUNGIN ACETATE IVPB SCH (21:18)
--- NOTE | 2018-03-25 23:02 | PRG ---
DATE OF SERVICE: 03/25/2018 SUBJECTIVE: Orestes Armijo is most febrile over the weekend. I suspect some of this is activation of his immune system with his antiretroviral therapy. OBJECTIVE: His heart rate is 110. He is afebrile now. He is on 45% oxygen. His blood pressure is 111/63. Respiratory rates in the mid-20s. The remainder of his exam is essentially unchanged. LABORATORY DATA: White count 10.7, hemoglobin 13.6, platelets 237. Electrolytes were unremarkable. IMPRESSION: HIV with pneumonia, presumably PCP given his clinical improvement and now with the development of fever, I think this is more immune reconstitution fever, then it is a new infection. His radiograph is actually improved compared to his admission radiograph. He has been switched to caspofungin and pentamidine over the weekend because of hyponatremia, although his hyponatremia was never severe. PLAN: We will continue to follow, I do not feel bronchoscopy is indicated as it before intubation would be necessary with mechanical ventilation to perform bronchoscopy with lavage. He is not agreeable to this at this point and I cannot really push hte issue. We will just continue to follow him clinically for now. UNIQUE
[2018-03-26 04:58] LABS: #Eosinphils 0.6 thou/uL (0.0-0.7); #Lymphocytes 1.6 thou/uL (1.20-3.40); #Monocytes 0.7 thou/uL (0.11-0.59); #Neutrophils 11.6 thou/uL (1.40-6.50); %Basophils 0.1 % (0.0-1.0); %Eosinophils 4.4 % (0.0-10.0); %Lymphocytes 11.2 % (21.0-51.0); %Monocytes 4.5 % (0.0-10.0); %Neutrophils 79.8 % (42.0-75.0); Mean Corpuscular HGB CONC 34.3 g/dL (32.0-36.0); Mean Corpuscular Hemoglobin 30.2 pg (27.0-31.0); Mean Corpuscular Volume 87.9 fL (78.0-98.0); Mean Platelet Volume 8.4 fL (7.4-10.4); Platelet Count 281 thou/uL (130-400); RBC Distribution Width 12.8 % (11.5-14.5); Red Blood Cell (RBC) Count 4.98 mill/uL (4.70-6.10); White Blood Cell (WBC) Count 14.5 thou/uL (4.8-10.8)
[2018-03-26] MEDS: Enoxaparin Sodium 40 MG/0.4 ML SYRINGE SC SCH (09:36)
[2018-03-26] MEDS: Famotidine 20 MG TAB PO SCH ×2 (09:36→20:52)
[2018-03-26] MEDS: Polyethylene Glycol 3350 17 GM Packet PO SCH (09:36)
[2018-03-26] MEDS: Docusate 100 MG CAP PO SCH ×2 (09:36→20:52)
[2018-03-26] MEDS: Emtricitabine/Tenofovir 200-300 MG TAB PO SCH (09:37)
[2018-03-26] MEDS: Raltegravir Potassium 400 MG TAB PO SCH ×2 (09:37→20:53)
--- NOTE | 2018-03-26 10:38 | PRG ---
DATE OF SERVICE: 03/25/2018 SUBJECTIVE: The patient was seen and examined with no new complaint and noted with the following vit al signs. OBJECTIVE: VITAL SIGNS: Afebrile, blood pressure 113/63, pulse 123, O2 sat of . HEENT: Unremarkable. CARDIOVASCULAR SYSTEM: First and heart sounds were heard. RESPIRATORY SYSTEM: Reveals some diffuse rales. DIGESTIVE SYSTEM: Revealed a benign abdomen. EXTREMITIES: No peripheral edema. SKIN: No new gross rash. LYMPHATICS: No peripheral lymphadenopathy. IMPRESSION: 1. 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 2. Respiratory failure in the context of problem #3. 3. pneumonitis due to problem #4. 4. Advanced human immunodeficiency virus/acquired immune deficiency syndrome. PLAN: 1. The patient's sodium seems to have improved. We will continue with fluid restriction and hold on the Vaprisol patient's sodium begins to deteriorate again, we will transition over to oral anti-ADH medication. 2. Further management will be dependent on the clinical course.
[2018-03-26] MEDS ORDERED: Furosemide 100 MG/10 ML VIAL SLOW IVP SCH (13:39)
--- NOTE | 2018-03-26 13:51 | PRG ---
DATE OF SERVICE: 03/26/2018 Orestes Armijo says he feels 100% better than yesterday. PHYSICAL EXAMINATION: VITAL SIGNS: His heart rate is down to 91, respiratory rate is in the low 20s, oximetry is 92 on 45% . He is positive 777 yesterday, in spite of a 2975 urine output. His oral intake was 1685 yesterda y, he is supposed to be on a fluid restriction. LUNGS: His lungs are remarkable for crackles at both lung bases. CARDIOVASCULAR: Regular rhythm. S1 and S2 are normal. ABDOMEN: Soft. IMPRESSION: Pneumocystis pneumonia, presumed with human immunodeficiency virus, clinically improving . We will diurese him some more today. His BUN is only 10, so he has room for more diuresis.
--- NOTE | 2018-03-26 14:17 | PDOC.PN ---
- Subjective Encounter Start Date: 03/26/18 Encounter Start Time: 14:15 About the same. No major changes. No new symptoms. Still SOB. Was able to get up in the room with PT yesterday, but very SOB with 10-15 feet ambulation. - Objective Resuscitation Status: Resuscitation Status FULL:Full Resuscitation Vital Signs & Weight: Vital Signs (12 hours) Temp Pulse Resp BP Pulse Ox 03/26/18 14:12 95 24 H 03/26/18 10:42 91 24 H 03/26/18 08:00 92 L 03/26/18 06:59 91 24 H 03/26/18 04:00 97.2 F L 74 26 H 93/48 L 92 L 03/26/18 03:15 94 L Weight Admit Weight 176 lb Weight 161 lb 5 oz I&O: 03/25/18 03/26/18 03/27/18 06:59 06:59 06:59 Intake Total 2889 2652 50 Output Total 2975 1875 Balance -86 777 50 Result Diagrams: 03/26/18 04:20 03/25/18 03:43 Phys Exam - Physical Examination Constitutional: NAD High flow NC oxygen. Respiratory: no wheezing, no rales, no rhonchi, clear to auscultation bilateral Cardiovascular: RRR, no significant murmur, no rub Gastrointestinal: soft, non-tender, no distention, positive bowel sounds Musculoskeletal: no edema Psychiatric: normal affect Dx/Plan (1) AIDS (acquired immune deficiency syndrome) Status: Acute Comment: CD4 count of 14. Anti-retrovirals started (2) Acute respiratory failure with hypoxia Code(s): J96.01 - ACUTE RESPIRATORY FAILURE WITH HYPOXIA Status: Acute Comment: on high flow O2. Followed by Pulmonary. Still has high oxygen requirements. (3) PNA (pneumonia) Code(s): J18.9 - PNEUMONIA, UNSPECIFIED ORGANISM Status: Acute Qualifiers: Pneumonia type: due to Pneumocystis jirovecii Laterality: bilateral Comment: Likely PCP. Bactrim, Caspofuncing, steroids. (4) Sepsis Code(s): A41.9 - SEPSIS, UNSPECIFIED ORGANISM Status: Resolved (5) Constipation Code(s): K59.00 - CONSTIPATION, UNSPECIFIED Status: Resolved Comment: Had results. Has several meds. Good bowel sounds and non-tender/distended to palp. (6) Hyponatremia Code(s): E87.1 - HYPO-OSMOLALITY AND HYPONATREMIA Status: Acute Comment: Better today. 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 Nephrology following. On Conivaptan. Will likely be a challenge as long as the pneumonia persists. - Plan * Continue plan per ID, pulmonology.
[2018-03-26] MEDS: Acetaminophen 325 MG TAB PO PRN (16:55)
--- NOTE | 2018-03-26 18:23 | PRG ---
DATE OF SERVICE: 03/26/2018 SUBJECTIVE: The patient is seen and examined. No new complaint. Noted with the following vital sig ns. PHYSICAL EXAMINATION: VITAL SIGNS: Afebrile, blood pressure 102/52, pulse 114, respiratory rate of 24. HEENT: Remarkable for high flow nasal cannula. CARDIOVASCULAR SYSTEM: First and second heart sounds, tachycardic. RESPIRATORY SYSTEM: Reveals some rales. DIGESTIVE SYSTEM: Revealed a benign abdomen, positive bowel sounds. EXTREMITIES: No peripheral edema. SKIN: No new gross rash. LYMPHATICS: No peripheral lymphadenopathy. IMPRESSION: 1. 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 2. Advanced HIV/AIDS. PLAN: 1. Unfortunately there is no chemistry today. We will reevaluate the chemistry tomorrow. 2. We will monitor the sodium closely and make further recommendations.
[2018-03-26] MEDS: SODIUM CHLORIDE 0.9% IVPB SCH (20:52)
[2018-03-26] MEDS: CASPOFUNGIN ACETATE IVPB SCH (20:52)
[2018-03-26] MEDS: predniSONE 20 MG TAB PO SCH (20:52)
[2018-03-27 04:12] LABS: #Eosinphils 0.4 thou/uL (0.0-0.7); #Monocytes 0.5 thou/uL (0.11-0.59); #Neutrophils 11.1 thou/uL (1.40-6.50); %Basophils 0.2 % (0.0-1.0); %Eosinophils 2.8 % (0.0-10.0); Hemoglobin 13.9 g/dL (14.0-18.0); Mean Corpuscular HGB CONC 34.1 g/dL (32.0-36.0); Mean Corpuscular Hemoglobin 29.8 pg (27.0-31.0); Mean Corpuscular Volume 87.4 fL (78.0-98.0); Mean Platelet Volume 8.2 fL (7.4-10.4); Platelet Count 270 thou/uL (130-400); RBC Distribution Width 12.6 % (11.5-14.5); Red Blood Cell (RBC) Count 4.66 mill/uL (4.70-6.10)
[2018-03-27 04:25] LABS: Anion Gap 13 mmol/L (10-20); BUN (Urea Nitrogen) 16 mg/dL (8.9-20.6); Calc. Creatinine Clearance 168 mL/min (70-130); Calcium 8.4 mg/dL (7.8-10.44); Carbon Dioxide 27 mmol/L (22-29); Chloride 96 mmol/L (98-107); Estimated GFR-MDRD Greater than 90; Glucose 103 mg/dL (70-105); Potassium 3.8 mmol/L (3.5-5.1); Sodium 132 mmol/L (136-145)
[2018-03-27] MEDS: Raltegravir Potassium 400 MG TAB PO SCH ×2 (09:09→20:36)
[2018-03-27] MEDS: Polyethylene Glycol 3350 17 GM Packet PO SCH (09:09)
[2018-03-27] MEDS: Famotidine 20 MG TAB PO SCH (09:09)
[2018-03-27] MEDS: predniSONE 20 MG TAB PO SCH ×2 (09:09→20:36)
[2018-03-27] MEDS: Emtricitabine/Tenofovir 200-300 MG TAB PO SCH (09:09)
[2018-03-27] MEDS: Enoxaparin Sodium 40 MG/0.4 ML SYRINGE SC SCH (09:09)
[2018-03-27] MEDS: Docusate 100 MG CAP PO SCH ×2 (09:11→20:36)
[2018-03-27] MEDS: Cepastat Lozenges 1 LOZ PO PRN (14:36)
--- NOTE | 2018-03-27 15:57 | PDOC.PN ---
- Subjective Encounter Start Date: 03/27/18 Encounter Start Time: 12:10 Has new onset of mild ST and dysphagia with CP. - Objective Resuscitation Status: Resuscitation Status FULL:Full Resuscitation Vital Signs & Weight: Vital Signs (12 hours) Temp Pulse Resp BP Pulse Ox 03/27/18 15:49 93 L 03/27/18 15:47 92 28 H 94 L 03/27/18 11:46 96 32 H 94 L 03/27/18 11:00 93 L 03/27/18 10:43 97.9 F 98 24 H 86/46 L 98 03/27/18 09:08 88 20 03/27/18 08:00 97 03/27/18 07:54 97 03/27/18 07:52 75 22 H 97 03/27/18 07:19 97.4 F L 69 20 98/50 L 97 Weight Admit Weight 176 lb Weight 158 lb 11.725 oz I&O: 03/26/18 03/27/18 03/28/18 06:59 06:59 06:59 Intake Total 2652 1423 Output Total 1875 2335 Balance 777 -912 Result Diagrams: 03/27/18 03:38 03/27/18 03:38 Phys Exam - Physical Examination Constitutional: NAD Looks more fatigued. HEENT: oral pharynx no lesions Neck: no nodes, no JVD, supple Diminished BS at bases. Respirations appear to be less effective with decreased air exchange compared to yesterday. Cardiovascular: RRR, no significant murmur, no rub Gastrointestinal: soft Musculoskeletal: no edema Psychiatric: normal affect, A&O x 3 Dx/Plan (1) AIDS (acquired immune deficiency syndrome) Status: Acute Comment: CD4 count of 14. Anti-retrovirals started (2) Acute respiratory failure with hypoxia Code(s): J96.01 - ACUTE RESPIRATORY FAILURE WITH HYPOXIA Status: Acute Comment: on high flow O2. Followed by Pulmonary. Still has high oxygen requirements. Pulmonology keeping him diuresed. (3) PNA (pneumonia) Code(s): J18.9 - PNEUMONIA, UNSPECIFIED ORGANISM Status: Acute Qualifiers: Pneumonia type: due to Pneumocystis jirovecii Laterality: bilateral Comment: Likely PCP. Bactrim, Caspofunging, steroids, inhaled pentamadine. Prolonged course. Continue respiratory support with high flow oxygen. (4) Sepsis Code(s): A41.9 - SEPSIS, UNSPECIFIED ORGANISM Status: Resolved (5) Constipation Code(s): K59.00 - CONSTIPATION, UNSPECIFIED Status: Resolved Comment: Had results. Has several meds. Good bowel sounds and non-tender/distended to palp. 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 Nephrology following. On Conivaptan. Slightly lower today, but generally stable. (7) Esophagitis Code(s): K20.9 - ESOPHAGITIS, UNSPECIFIED Status: Acute Comment: Changing the H2 to PPI. Likely too unstable for endoscopy. Could be viral esophagitis. - Plan * above.
--- NOTE | 2018-03-27 19:14 | PRG ---
DATE OF SERVICE: 03/27/2018 The patient with no new complaint except some degree of chest pain with dysphagia. PHYSICAL EXAMINATION: HEENT: Unremarkable. CARDIOVASCULAR: First and second heart sounds were heard. RESPIRATORY SYSTEM: Reveals some rales. ABDOMEN: Digestive system revealed a benign abdomen with positive bowel sounds. EXTREMITIES: No peripheral edema. LABORATORY: Sodium of 132. IMPRESSION: 1. Hyponatremia due to syndrome of inappropriate antidiuretic hormone secretion in the context of pr oblem #2. 2. PCP pneumonitis. 3. Advanced human immuno virus/autoimmune deficiency syndrome. PLAN: 1. Continue with high protein diet. 2. Diet with free water restriction. 3. Further management to be dependent on the clinical course.
--- NOTE | 2018-03-27 20:01 | PRG ---
DATE OF SERVICE: 03/27/2018 SUBJECTIVE: Mr. Armijo says he feels about the same, remains tachypneic but denies being short of breath. He is still on high flow cannula. OBJECTIVE: VITAL SIGNS: His oximetry is in the mid 90s. Blood pressure is 86/46. Intake and output is positive 777 yesterday, negative 912 today. Probably will tolerate more diuresis today. LUNGS: Still remarkable for crackles at both lung bases. HEART: Regular rhythm. ABDOMEN: Soft. LABORATORY DATA: White count 13, hemoglobin 13.9, platelets 270. Sodium 132, potassium 3.8, chloride 96, bicarbonate 27, BUN 16, creatinine 0.69. IMPRESSION: 1. Presumed pneumocystis pneumonia. 2. Ongoing hypoxemia. 3. Started to have complaints of swallowing issues. He is on caspofungin and pentamidine. He may be developing a viral esophagitis. We will continue with his medicines per Infectious Disease. He has not clinically deteriorated, but he is not improving rapidly, which is not surprising given the severity of his immunosuppression. UNIQUE
[2018-03-27] MEDS: CASPOFUNGIN ACETATE IVPB SCH (20:36)
[2018-03-27] MEDS: SODIUM CHLORIDE 0.9% IVPB SCH (20:36)
[2018-03-28] MEDS: Cepastat Lozenges 1 LOZ PO PRN (00:38)
[2018-03-28 04:40] LABS: #Eosinphils 0.1 thou/uL (0.0-0.7); #Lymphocytes 1.1 thou/uL (1.20-3.40); #Monocytes 0.5 thou/uL (0.11-0.59); #Neutrophils 9.6 thou/uL (1.40-6.50); %Basophils 0.2 % (0.0-1.0); %Lymphocytes 9.7 % (21.0-51.0); %Monocytes 4.4 % (0.0-10.0); %Neutrophils 84.7 % (42.0-75.0); Hemoglobin 13.9 g/dL (14.0-18.0); Mean Corpuscular HGB CONC 33.6 g/dL (32.0-36.0); Mean Corpuscular Hemoglobin 29.6 pg (27.0-31.0); Mean Corpuscular Volume 87.9 fL (78.0-98.0); Mean Platelet Volume 8.6 fL (7.4-10.4); Platelet Count 246 thou/uL (130-400); RBC Distribution Width 12.5 % (11.5-14.5); Red Blood Cell (RBC) Count 4.72 mill/uL (4.70-6.10); White Blood Cell (WBC) Count 11.3 thou/uL (4.8-10.8)
[2018-03-28 04:50] LABS: Anion Gap 11 mmol/L (10-20); BUN (Urea Nitrogen) 13 mg/dL (8.9-20.6); Calc. Creatinine Clearance 176 mL/min (70-130); Calcium 8.4 mg/dL (7.8-10.44); Carbon Dioxide 27 mmol/L (22-29); Chloride 100 mmol/L (98-107); Estimated GFR-MDRD Greater than 90; Glucose 92 mg/dL (70-105); Potassium 3.8 mmol/L (3.5-5.1); Sodium 134 mmol/L (136-145)
[2018-03-28] MEDS: predniSONE 20 MG TAB PO SCH (09:25)
[2018-03-28] MEDS: Raltegravir Potassium 400 MG TAB PO SCH (09:25)
[2018-03-28] MEDS: Enoxaparin Sodium 40 MG/0.4 ML SYRINGE SC SCH (09:25)
[2018-03-28] MEDS: Emtricitabine/Tenofovir 200-300 MG TAB PO SCH (09:25)
[2018-03-28] MEDS: Polyethylene Glycol 3350 17 GM Packet PO SCH (09:26)
[2018-03-28] MEDS: Docusate 100 MG CAP PO SCH (09:26)
[2018-03-28] MEDS: Acetaminophen 325 MG TAB PO PRN ×2 (10:36→14:48)
[2018-03-28] MEDS ORDERED: Midazolam HCl 2 mg/2 ml Vial ONE (11:26)
[2018-03-28] MEDS ORDERED: Propofol 1,000 MG/100 ML VIAL IV ONE (11:51)
[2018-03-28] MEDS ORDERED: Morphine 4 MG/ML VIAL ONE (12:09)
[2018-03-28] MEDS ORDERED: Ventilator Sedation Protocol 1 EACH FS ONE (12:59)
[2018-03-28] MEDS ORDERED: Fentanyl BOLUS 250 ML IVPB PRN (13:03)
[2018-03-28] MEDS ORDERED: Propofol BOLUS 1,000 MG/100 ML VIAL IV PRN (13:03)
[2018-03-28] MEDS ORDERED: DISCONTINUE PREVIOUS NARCOTIC PAIN MEDICATIONS AND BENZODIAZEPINES FS SCH (13:03)
--- NOTE | 2018-03-28 13:08 | PRG ---
DATE OF SERVICE: 03/28/2018 Mr. Armijo had some worsening of tachypnea this morning. The x-ray showed worsening infiltrates and h e was just sedated and intubated. A bronchoalveolar wash was performed and we are waiting on the res ults of tests. He is sedated at this time. PHYSICAL EXAMINATION: VITAL SIGNS: He continues to be afebrile for the past few days. BP 109/90, pulse 110, respirations 32. At his settings of 100 FiO2 with PEEP of 8. HEENT: Pupils are miotic. LUNGS: Symmetric breath sounds. HEART: S1, S2, regular rate. ABDOMEN: Soft, not distended. EXTREMITIES: Good perfusion lower extremities. LABORATORY: White cell count 11,000, hemoglobin 13, platelets 246 with 84% neutrophils. Sodium 134, creatinine 0.65. Liver profile normal. Albumin 2.5, globulin 4.0 and the bronchoalveolar lavage is pending. The repeat x-ray showed worsening of the bilateral infiltrates compared with previous films. ASSESSMENT: Advanced immunosuppression associated with human immunodeficiency virus seropositive sta tus and likely pneumocystis pneumonia which now has presented with some exacerbation with worsening i nfiltrates persistence of tachypnea requiring high flow O2. The patient was intubated, had a washout and we will evaluate the results this. Increase the Medrol to q.6h. again Continue the remainder of his treatments.
--- NOTE | 2018-03-28 13:18 | RAD ---
CHEST 1 VIEW: Date: 03/28/18 HISTORY: Shortness of breath. COMPARISON: 03/23/18. FINDINGS: There is diffuse interstitial and alveolar opacification. No significant pleural fluid or pneumothora x. Enlarged cardiac silhouette. IMPRESSION: Diffuse interstitial and alveolar infiltrates. Continued surveillance to ensure resolution is recomme nded. POS: AKUA
[2018-03-28 13:39] LABS: Actual Bicarbonate (HCO3a) 26.8 mEq/L (22-28); CO2 Tension 38.3 mmHg (35.0-45.0); Calcium, Ionized 1.15 mmol/L (1.12-1.30); Carboxyhemoglobin (COHb) 1.5 gm% (0.0-3.0); Hemoglobin (Hb) 14.4 g/dL (14.0-18.0); O2 Tension (PaO2) 166.4 mmHg (80.0-100.0); Potassium - ABG Lab 3.49 mmol/L (3.70-5.30); pH, Arterial 7.46 (7.35-7.45)
[2018-03-28 13:40] LABS: ALV-art Gradient 498.725 (0-20); Puncture Site L.R.
[2018-03-28] MEDS: Sodium Chloride 0.9% 1,000 ML IV SCH (13:47)
[2018-03-28] MEDS: Lorazepam 2 MG/ML VIAL SLOW IVP PRN ×3 (13:49→19:10)
[2018-03-28] MEDS: fentaNYL Citrate/PF 2,000 MCG in Sodium Chloride 0.9% 60 ML IV SCH (13:58)
[2018-03-28] MEDS ORDERED: Vecuronium 10 MG VIAL IVP SCH (14:00)
--- NOTE | 2018-03-28 14:43 | RAD ---
PORTABLE SEMIUPRIGHT FRONTAL CHEST RADIOGRAPH 03/28/18 at 12:57 p.m. COMPARISON: 03/28/18 at 10:52 a.m. HISTORY: Ventilated patient. Shortness of breath. FINDINGS: There is a new endotracheal tube in place, the distal tip approximately 2 cm above the mykel. Nasoga stric tube extends into the left upper quadrant. There is extensive interstitial and alveolar opacities seen throughout both lungs with prominent mabel pheral air space disease in the lateral mid left lung. Semiupright imaging limits assessment for pne umothorax and pleural fluid. Short term followup imaging following treatment advised. IMPRESSION: Extensive interstitial and alveolar opacities seen throughout both lungs, nonspecific. New endotrache al tube and nasogastric tube as detailed above. POS: JAYDON
--- NOTE | 2018-03-28 14:46 | PDOC.PN ---
- Subjective Encounter Start Date: 03/28/18 Encounter Start Time: 11:00 Had a more difficult time with his breathing this morning. He was a little better at the time of the exam. - Objective Resuscitation Status: Resuscitation Status FULL:Full Resuscitation Vital Signs & Weight: Vital Signs (12 hours) Temp Pulse Resp BP BP Pulse Ox 03/28/18 14:00 18 03/28/18 13:00 99.2 F 03/28/18 12:20 103 H 24 H 102/62 03/28/18 10:49 110 H 32 H 94 L 03/28/18 09:35 102 H 26 H 03/28/18 08:00 90 L 03/28/18 07:31 98.5 F 94 32 H 109/90 90 L 03/28/18 06:53 86 28 H 90 L 03/28/18 04:00 98.4 F 80 18 91/61 91 L Weight Admit Weight 176 lb Weight 159 lb 9.835 oz Most Recent Monitor Data Heart Rate from ECG 107 NIBP 80/46 NIBP BP-Mean 61 Respiration from ECG 18 SpO2 98 I&O: 03/27/18 03/28/18 03/29/18 06:59 06:59 06:59 Intake Total 1423 2020 1000 Output Total 2335 1525 450 Balance -912 495 550 Result Diagrams: 03/28/18 03:30 03/28/18 03:30 Phys Exam - Physical Examination Tachypneic, fatigued. Scattered bilateral rales. Cardiovascular: RRR, no significant murmur Tachycardic. Gastrointestinal: soft, non-tender, no distention, positive bowel sounds Musculoskeletal: no edema Dx/Plan (1) AIDS (acquired immune deficiency syndrome) Status: Acute Comment: CD4 count of 14. Anti-retrovirals started (2) Acute respiratory failure with hypoxia Code(s): J96.01 - ACUTE RESPIRATORY FAILURE WITH HYPOXIA Status: Acute Comment: Discussed with pulmonology. Plan intubation with bronch today. Move to ICU. (3) PNA (pneumonia) Code(s): J18.9 - PNEUMONIA, UNSPECIFIED ORGANISM Status: Acute Qualifiers: Pneumonia type: due to Pneumocystis jirovecii Laterality: bilateral Comment: Likely PCP. Bactrim, Caspofunging, steroids, inhaled pentamadine. Prolonged course. Continue respiratory support with high flow oxygen. (4) Sepsis Code(s): A41.9 - SEPSIS, UNSPECIFIED ORGANISM Status: Resolved (5) Constipation Code(s): K59.00 - CONSTIPATION, UNSPECIFIED Status: Resolved Comment: Had results. Has several meds. Good bowel sounds and non-tender/distended to palp. 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 Nephrology following. On Conivaptan. Slightly lower today, but generally stable. (7) Esophagitis Code(s): K20.9 - ESOPHAGITIS, UNSPECIFIED Status: Acute Comment: Changing the H2 to PPI. Likely too unstable for endoscopy. Could be viral esophagitis. - Plan * above.
--- NOTE | 2018-03-28 16:54 | PRG ---
DATE OF SERVICE: 03/28/2018 SUBJECTIVE: Mr. Armijo started telling me that he was feeling tired today. He was telling the nurses the same thing. We discussed intubation for bronchoscopy to be sure we are not missing any pulmonar y pathogens. He actually surprisingly said he wanted that. He needed the rest. He was transferred over to the Critical Care Unit today. His lungs, heart and abdomen exam was essen tially unchanged. LABORATORY DATA: White count was 11.3, hemoglobin 13.9, platelets 246,000. Electrolytes were unrema rkable. IMPRESSION: Respiratory muscle fatigue secondary to poor lung compliance associated with pneumonia. We will try to keep him in negative fluid balance, but had to withhold diuresis yesterday because of his blood pressure. I have recommended intubation with bronchoalveolar lavage. He is agreeable. [facility] CRITICAL CARE TIME: 30 minutes, independent of the procedure.
[2018-03-28] MEDS: Propofol 1,000 MG/100 ML VIAL IV PRN ×2 (17:42→21:16)
--- NOTE | 2018-03-28 18:46 | PRG ---
DATE OF SERVICE: 03/28/2018 SUBJECTIVE: deteriorating pulmonary status, necessitating transfer to ICU and intubated with t he following vital signs. PHYSICAL EXAMINATION: VITAL SIGNS: Blood pressure 100/64, pulse 109, respiratory rate of 32, temperature of 101.3. HEENT: Remarkable for endotracheal tube in place. CARDIOVASCULAR: First and second heart sounds were heard. RESPIRATORY: Reveals vented sounds. DIGESTIVE: Revealed a benign abdomen. EXTREMITIES: No peripheral edema. IMPRESSION: 1. Hyponatremia, which seems to have stabilized in the context of syndrome of inappropriate antidiur etic hormone due to pulmonary pathology. 2. Advanced human immunodeficiency virus/acquired immunodeficiency syndrome. 3. New cardiopulmonary failure in the context of pneumonitis. PLAN: 1. We will continue with current renal supportive measures. 2. Further management to be dependent on the clinical course.
--- NOTE | 2018-03-28 20:54 | OP ---
DESCRIPTION OF PROCEDURE: Mr. Armijo was sedated with Versed. Bite block was placed in his mouth after his upper airway was prepped with Cetacaine spray. Once he was sedated, the bronchoscope was introduced and passed down to normal appearing vocal cords. The scope was passed into the trachea, which appeared normal main mykel. Endotracheal tube 7.5 was secured at 24 cm above the mykel. Right lower lobe, right middle lobe, right upper lobe, left lower lobe , and left upper lobe were inspected, all respective segments were identified. No endobronchial lesions were seen, nothing to suggest Kaposi sarcoma was noted. His right middle lobe was entered and lavaged with 60 mL of saline. Approximately 30 mL of lavage return was obtained. This was sent for the appropriate studies with an immunocompromised patient. He was then connected to mechanical ventilation, sedated with fentanyl and propofol. He also received 10 mg of morphine just prior to intubation, which helped with sedating him prior to intubation. I suspect he will require high doses of sedatives. We may end up having to place him on a high dose Versed drip, if high dose propofol and fentanyl do not control his agitation. He was chemically paralyzed to control coughing for mechanical ventilation. Chest radiograph shows diffuse alveolar infiltrates bilaterally. Blood gas post-intubation showed pH 7.46, CO2 of 38, pO2 of 166. MTDD
[2018-03-28] MEDS: SODIUM CHLORIDE 0.9% IVPB SCH (21:17)
[2018-03-28] MEDS: CASPOFUNGIN ACETATE IVPB SCH (21:17)
[2018-03-29 04:35] LABS: Anion Gap 13 mmol/L (10-20); BUN (Urea Nitrogen) 18 mg/dL (8.9-20.6); Calc. Creatinine Clearance 164 mL/min (70-130); Calcium 8.9 mg/dL (7.8-10.44); Carbon Dioxide 25 mmol/L (22-29); Chloride 102 mmol/L (98-107); Estimated GFR-MDRD Greater than 90; Glucose 99 mg/dL (70-105); Magnesium 2.1 mg/dL (1.6-2.6); Phosphorus 4.7 mg/dL (2.3-4.7); Potassium 4.4 mmol/L (3.5-5.1); Sodium 136 mmol/L (136-145)
[2018-03-29 04:45] LABS: Band 12 % (5-11); Lymphocytes 4 % (21-51); MDiff Complete? YES; Mean Corpuscular HGB CONC 33.4 g/dL (32.0-36.0); Mean Corpuscular Hemoglobin 29.5 pg (27.0-31.0); Mean Corpuscular Volume 88.3 fL (78.0-98.0); Mean Platelet Volume 8.4 fL (7.4-10.4); Monocytes 4 % (0-10); Neutrophil 80 % (42-75); PLT Morphology Comment Appears Adequate; Platelet Count 249 thou/uL (130-400); RBC Distribution Width 12.6 % (11.5-14.5); Red Blood Cell (RBC) Count 4.43 mill/uL (4.70-6.10); White Blood Cell (WBC) Count 14.6 thou/uL (4.8-10.8)
[2018-03-29] MEDS: Propofol 1,000 MG/100 ML VIAL IV PRN (05:38)
[2018-03-29] MEDS: Sodium Chloride 0.9% 1,000 ML IV SCH (05:42)
[2018-03-29 07:31] LABS: Actual Bicarbonate (HCO3a) 23.1 mEq/L (22-28); Base Excess (BEa) -0.3 mEq/L (-2.0 to +3.0); CO2 Tension 34.3 mmHg (35.0-45.0); Carboxyhemoglobin (COHb) 1.7 gm% (0.0-3.0); O2 Tension (PaO2) 93.5 mmHg (80.0-100.0); Potassium - ABG Lab 3.91 mmol/L (3.70-5.30); pH, Arterial 7.45 (7.35-7.45)
[2018-03-29 07:33] LABS: ALV-art Gradient 291.425 (0-20); Puncture Site L.R.
--- NOTE | 2018-03-29 08:22 | RAD ---
SINGLE VIEW OF THE CHEST: COMPARISON: 03/28/18. HISTORY: Ventilated patient with respiratory failure. FINDINGS: A single view of the chest shows an enlarged but stable cardiomediastinal silhouette. The endotrache al tube and NG tube are unchanged in position. There are multifocal mixed opacities throughout the l ungs which may represent multifocal infiltrates or ARDS. IMPRESSION: Stable exam. POS: OFF
[2018-03-29] MEDS: Enoxaparin Sodium 40 MG/0.4 ML SYRINGE SC SCH (09:33)
[2018-03-29] MEDS: Polyethylene Glycol 3350 17 GM Packet PO SCH (09:34)
[2018-03-29] MEDS ORDERED: Sodium Chloride 0.9% 1,000 ML IV SCH (09:54)
--- NOTE | 2018-03-29 11:30 | PRG ---
DATE OF SERVICE: 03/29/2018 SUBJECTIVE: Mr. Armijo is awake this morning. I have stopped his propofol and was started on Versed drip to keep him sedated as we discussed prior to intubation. I want him kept deeply sedated and then have a sedation holiday every morning. OBJECTIVE: VITAL SIGNS: His blood pressure this morning 94/50, heart rate is in the 80s, respiratory rates per mechanical ventilation. Intake and output is positive 1320. LUNGS: Remarkable for rhonchi anteriorly. HEART: Regular rhythm. Abdomen: Soft. IMAGING: Chest radiograph shows pulmonary edema/pneumocystis changes. Lavage showed pneumocystis cell blocks pending. Renal function remains normal. Sodium is 136. White count 14.6, hemoglobin 13 , platelets 249. Blood gas pH of 7.45, CO2 of 34, pO2 of 93, is on 60%. IMPRESSION: HIV positive with severe immunosuppression pneumocystis pneumonia. PLAN: Continue antimicrobial therapy and ventilatory support as well as nutritional support. We will need to watch his intake and output. Avoid excessive volume infusions. We will diurese him as needed. Critical care time 30 minutes MTDD
[2018-03-29] MEDS ORDERED: Albumin 25% 25 GM/100 ML BOT IVPB SCH (13:45)
--- NOTE | 2018-03-29 15:12 | PDOC.PN ---
- Subjective Encounter Start Date: 03/29/18 Encounter Start Time: 13:00 Subjective: on vent, mother at bedside - Objective Resuscitation Status: Resuscitation Status FULL:Full Resuscitation MAR Reviewed: Yes Vital Signs & Weight: Vital Signs (12 hours) Pulse Resp BP Pulse Ox 03/29/18 11:08 90 81/42 L 03/29/18 11:06 84 34 H 100 03/29/18 09:34 87 24 H 03/29/18 07:40 31 H 03/29/18 07:15 93 91/50 L 03/29/18 07:14 102 H 29 H 97 03/29/18 06:00 25 H 03/29/18 04:00 26 H Weight Admit Weight 176 lb Weight 168 lb 3.403 oz Most Recent Monitor Data Heart Rate from ECG 87 NIBP 94/50 NIBP BP-Mean 69 Respiration from ECG 30 SpO2 97 I&O: 03/28/18 03/29/18 03/30/18 06:59 06:59 06:59 Intake Total 2020 2620.4 Output Total 1525 1300 65 Balance 495 1320.4 -65 Result Diagrams: 03/29/18 04:09 03/29/18 04:09 Phys Exam - Physical Examination HEENT: PERRLA, sclera anicteric Neck: no JVD, supple Respiratory: no wheezing, no rales coarse rhonchi++ Cardiovascular: RRR, no significant murmur Gastrointestinal: soft, non-tender, positive bowel sounds Musculoskeletal: no edema, pulses present Neurological: non-focal, moves all 4 limbs Dx/Plan (1) Acute respiratory failure with hypoxia Code(s): J96.01 - ACUTE RESPIRATORY FAILURE WITH HYPOXIA Status: Acute (2) PNA (pneumonia) Code(s): J18.9 - PNEUMONIA, UNSPECIFIED ORGANISM Status: Acute Qualifiers: Pneumonia type: due to Pneumocystis jirovecii Laterality: bilateral Comment: Likely due to PCP. (3) AIDS (acquired immune deficiency syndrome) Status: Acute Comment: CD4 count of 14. Anti-retrovirals held for now (4) Sepsis Code(s): A41.9 - SEPSIS, UNSPECIFIED ORGANISM Status: Acute Comment: PCP with AIDS - Plan is on vent -: had bronchoscopy yesterday, await histopath/cultures -: is on pentamidine, cospofungin and steroids -: prognosis guarded * . Review of Systems - Medications/Allergies Allergies/Adverse Reactions: Allergies Allergy/AdvReac Type Severity Reaction Status Date / Time No Known Allergies Allergy Verified 03/15/18 03:05 Medications: Current Medications Acetaminophen (Tylenol) 650 mg PO Q4H PRN PRN Reason: Headache/Fever or Pain Last Admin: 03/28/18 14:48 Dose: 650 mg Albuterol/Ipratropium (Duoneb) 3 ml NEB [id number] [facility] Last Admin: 03/29/18 15:10 Dose: 3 ml Enoxaparin Sodium (Lovenox) 40 mg SC 0900 ABELARDO Last Admin: 03/29/18 09:33 Dose: 40 mg Pentamidine Isethionate 300 mg (/ Dextrose/Water) 250 mls @ 250 mls/hr IVPB Q24HR ABELARDO Last Admin: 03/29/18 09:34 Dose: 250 mls Caspofungin 50 mg/ Sodium (Chloride) 250 mls @ 250 mls/hr IVPB 2100 ABELARDO Last Admin: 03/28/18 21:17 Dose: 250 mls Fentanyl Citrate 2,000 mcg/ (Sodium Chloride) 100 mls @ 0 mls/hr IV INF ABELARDO; Protocol Stop: 04/27/18 13:03 Last Admin: 03/28/18 13:58 Dose: 100 mls Fentanyl Citrate (Fentanyl Bolus) 250 mls @ 0 mls/hr IVPB PRN PRN PRN Reason: Breakthrough pain/agitation Stop: 04/27/18 13:03 Midazolam HCl (Versed) 100 mls @ 0 mls/hr IVPB INF ABELARDO; Protocol Last Admin: 03/29/18 09:32 Dose: 100 mls Sodium Chloride (Normal Saline 0.9%) 1,000 mls @ 0 mls/hr IV .Q0M ABELARDO Lorazepam (Ativan) 2 mg SLOW IVP Q1H PRN PRN Reason: Breakthrough agitation Stop: 04/27/18 13:03 Last Admin: 03/28/18 19:10 Dose: 2 mg Methylprednisolone Sodium Succinate (Solu-Medrol) 20 mg IVP Q6HR [facility] Last Admin: 03/29/18 11:49 Dose: 20 mg Morphine Sulfate (Morphine Sulfate) 2 mg SLOW IVP Q1H PRN PRN Reason: BREAKTHROUGH PAIN/AGITATION Stop: 04/27/18 13:03 Pantoprazole Sodium (Protonix) 40 mg PO DAILY [facility] Last Admin: 03/29/18 10:29 Dose: Not Given Polyethylene Glycol (Miralax) 17 gm PO DAILY [facility] Last Admin: 03/29/18 09:34 Dose: 17 gm Propofol (Diprivan) 1,000 mg IV INF PRN; Protocol PRN Reason: TO ACHIEVE GOAL RASS Stop: 04/27/18 13:03 Last Admin: 03/29/18 05:38 Dose: 1,000 mg Sodium Biphosphate/Sodium Phosphate (Fleet Enema) 133 ml FS Q8H PRN PRN Reason: Constipation Last Admin: 03/22/18 20:56 Dose: 133 ml Sodium Chloride (Flush - Normal Saline) 10 ml IVF Q12HR [facility] Last Admin: 03/29/18 09:34 Dose: 10 ml Sodium Chloride (Flush - Normal Saline) 10 ml IVF PRN PRN PRN Reason: Saline Flush Last Admin: 03/17/18 14:18 Dose: 10 ml
[2018-03-29] MEDS: fentaNYL Citrate/PF 2,000 MCG in Sodium Chloride 0.9% 60 ML IV SCH (15:42)
--- NOTE | 2018-03-29 16:20 | PRG ---
DATE OF SERVICE: 03/29/2018 SUBJECTIVE: The patient seen and examined, still on life support, noted with the following vital sig ns. PHYSICAL EXAMINATION: VITAL SIGNS: Blood pressure 94/50, pulse of 80s, respiratory rate of 14. HEENT: Remarkable for endotracheal tube in place. CARDIOVASCULAR: First and second heart sounds normal. RESPIRATORY: Reveals vented sounds. ABDOMEN: Digestive system revealed benign abdomen. EXTREMITIES: No peripheral edema. LABORATORY INVESTIGATION: Showed a sodium of 136. IMPRESSION: 1. Hyponatremia in the context of syndrome of inappropriate antidiuretic hormone, resolved. 2. Cardiopulmonary failure. PLAN: 1. We will continue current supportive measures. 2. Further management to dependent on clinical course.
[2018-03-29] MEDS: SODIUM CHLORIDE 0.9% IVPB SCH (21:07)
[2018-03-29] MEDS: CASPOFUNGIN ACETATE IVPB SCH (21:07)
[2018-03-30 05:36] LABS: Anion Gap 14 mmol/L (10-20); BUN (Urea Nitrogen) 21 mg/dL (8.9-20.6); Calc. Creatinine Clearance 173 mL/min (70-130); Calcium 8.9 mg/dL (7.8-10.44); Carbon Dioxide 25 mmol/L (22-29); Chloride 101 mmol/L (98-107); Estimated GFR-MDRD Greater than 90; Glucose 91 mg/dL (70-105); Potassium 4.2 mmol/L (3.5-5.1); Sodium 136 mmol/L (136-145)
[2018-03-30 05:41] LABS: Hemoglobin 12.6 g/dL (14.0-18.0); Hypochromia SLIGHT = 6-15 cells (100X) (0-5/hpf); Lymphocytes 3 % (21-51); MDiff Complete? YES; Mean Corpuscular HGB CONC 33.1 g/dL (32.0-36.0); Mean Corpuscular Hemoglobin 29.1 pg (27.0-31.0); Mean Platelet Volume 8.2 fL (7.4-10.4); Monocytes 1 % (0-10); Neutrophil 96 % (42-75); PLT Morphology Comment Appears Adequate; Platelet Count 245 thou/uL (130-400); RBC Distribution Width 12.7 % (11.5-14.5); Red Blood Cell (RBC) Count 4.32 mill/uL (4.70-6.10); White Blood Cell (WBC) Count 11.3 thou/uL (4.8-10.8)
[2018-03-30] MEDS: fentaNYL Citrate/PF 2,000 MCG in Sodium Chloride 0.9% 60 ML IV SCH ×2 (07:50→19:01)
[2018-03-30 08:05] LABS: Actual Bicarbonate (HCO3a) 28.3 mEq/L (22-28); Base Excess (BEa) 3.9 mEq/L (-2.0 to +3.0); Calcium, Ionized 1.19 mmol/L (1.12-1.30); Carboxyhemoglobin (COHb) 1.3 gm% (0.0-3.0); O2 Tension (PaO2) 82.6 mmHg (80.0-100.0); Puncture Site RR; pH, Arterial 7.45 (7.35-7.45)
--- NOTE | 2018-03-30 08:28 | RAD ---
PORTABLE AP CHEST XRAY: DATE: 03/30/18. HISTORY: On ventilator. Followup evaluation. COMPARISON: 03/29/18. FINDINGS: Endotracheal tube and nasogastric tubes are stable in position. Increased interstitial and alveolar opacities are again seen throughout the lungs bilaterally. A greater opacity is seen at the lateral aspect left mid lung zone. Findings again may be related to atypical pneumonia given patient's histo ry of immunodeficiency. Cardiac silhouette is magnified by projection and stable in size. There has been no other interval change. IMPRESSION: Stable chest. POS: AKUA
--- NOTE | 2018-03-30 09:21 | PRG ---
DATE OF SERVICE: 03/30/2018 SUBJECTIVE: Mr. Orestes Armijo is a 27-year-old gentleman, intubated with progressive respiratory failu re. He has HIV and pneumocystis. He is on caspofungin 50 mg once a day, Solu-Medrol 20 q.6. hours, pentamidine 300 mg a day. He was vented, sedated. This morning he is awake, responsive. OBJECTIVE: VITAL SIGNS: Pulse 80, blood pressure 95/56, sats are 98%, temperature 99. GENERAL: Awake, moves all 4 extremities. CHEST: Reveals bilateral rhonchi, crackles. CARDIAC: Normal S1, S2. No gallops. ABDOMEN: Soft, no masses. LABORATORY DATA: PO2 of 82, pCO2 42%, 45 on a rate of 12, 50%, tidal volume 500. His white count is 11,000, H&H is 12 and 38. Electrolytes are normal. His bronch washings did not show anything, but pneumocystis, negative for additional fungi. IMPRESSION: 1. Human immunodeficiency virus with pneumocystis pneumonia. 2. Respiratory failure. PLAN: Slow weaning. Continue antibiotics as per Infectious Disease. We will follow. One-half hour critical care time.
[2018-03-30] MEDS: Polyethylene Glycol 3350 17 GM Packet PO SCH (09:49)
[2018-03-30] MEDS: Enoxaparin Sodium 40 MG/0.4 ML SYRINGE SC SCH (09:49)
[2018-03-30] MEDS ORDERED: Pantoprazole 40 MG VIAL IVP SCH (10:00)
--- NOTE | 2018-03-30 14:13 | PDOC.PN ---
- Subjective Encounter Start Date: 03/30/18 Encounter Start Time: 12:15 Subjective: on vent, awake - Objective Resuscitation Status: Resuscitation Status FULL:Full Resuscitation MAR Reviewed: Yes Vital Signs & Weight: Vital Signs (12 hours) Temp Pulse Resp BP Pulse Ox 03/30/18 14:07 75 15 97 03/30/18 12:10 93 94/51 L 03/30/18 12:00 99.4 F 18 03/30/18 10:54 80 83/47 L 03/30/18 10:00 17 03/30/18 09:49 75 18 03/30/18 08:00 98.0 F 18 97 03/30/18 07:52 80 95/56 L 03/30/18 06:00 18 03/30/18 04:00 18 03/30/18 02:23 76 Weight Admit Weight 176 lb Weight 163 lb 12.855 oz Most Recent Monitor Data Heart Rate from ECG 84 NIBP 90/46 NIBP BP-Mean 58 Respiration from ECG 18 SpO2 95 I&O: 03/29/18 03/30/18 03/31/18 06:59 06:59 06:59 Intake Total 2620.4 1461.5 120 Output Total 1300 2627 332 Balance 1320.4 -1165.5 -212 Result Diagrams: 03/30/18 04:57 03/30/18 04:57 Phys Exam - Physical Examination HEENT: PERRLA, moist MMs Neck: no JVD, supple Respiratory: no wheezing, no rales Cardiovascular: RRR, no significant murmur Gastrointestinal: soft, non-tender, positive bowel sounds Musculoskeletal: no edema, pulses present Neurological: non-focal, moves all 4 limbs Dx/Plan (1) Acute respiratory failure with hypoxia Code(s): J96.01 - ACUTE RESPIRATORY FAILURE WITH HYPOXIA Status: Acute (2) PNA (pneumonia) Code(s): J18.9 - PNEUMONIA, UNSPECIFIED ORGANISM Status: Acute Qualifiers: Pneumonia type: due to Pneumocystis jirovecii Laterality: bilateral Comment: Likely due to PCP. (3) AIDS (acquired immune deficiency syndrome) Status: Acute Comment: CD4 count of 14. Anti-retrovirals held for now (4) Sepsis Code(s): A41.9 - SEPSIS, UNSPECIFIED ORGANISM Status: Acute Comment: PCP with AIDS - Plan is on pentamidine, cospofungin and steroids -: nebs, weaning when stable -: hemostable -: partner at bedside, gave updates -: bronchoscopy cellblock confirms pcp * . Review of Systems - Medications/Allergies Allergies/Adverse Reactions: Allergies Allergy/AdvReac Type Severity Reaction Status Date / Time No Known Allergies Allergy Verified 03/15/18 03:05 Medications: Current Medications Acetaminophen (Tylenol) 650 mg PO Q4H PRN PRN Reason: Headache/Fever or Pain Last Admin: 03/28/18 14:48 Dose: 650 mg Albuterol/Ipratropium (Duoneb) 3 ml NEB [id number] [facility] Last Admin: 03/30/18 14:07 Dose: 3 ml Enoxaparin Sodium (Lovenox) 40 mg SC 0900 [facility] Last Admin: 03/30/18 09:49 Dose: 40 mg Pentamidine Isethionate 300 mg (/ Dextrose/Water) 250 mls @ 250 mls/hr IVPB Q24HR [facility] Last Admin: 03/30/18 09:49 Dose: 250 mls Caspofungin 50 mg/ Sodium (Chloride) 250 mls @ 250 mls/hr IVPB 2100 [facility] Last Admin: 03/29/18 21:07 Dose: 250 mls Fentanyl Citrate 2,000 mcg/ (Sodium Chloride) 100 mls @ 0 mls/hr IV INF [facility]; Protocol Stop: 04/27/18 13:03 Last Admin: 03/30/18 07:50 Dose: 100 mls Fentanyl Citrate (Fentanyl Bolus) 250 mls @ 0 mls/hr IVPB PRN PRN PRN Reason: Breakthrough pain/agitation Stop: 04/27/18 13:03 Midazolam HCl (Versed) 100 mls @ 0 mls/hr IVPB INF [facility]; Protocol Last Admin: 03/30/18 11:59 Dose: 100 mls Sodium Chloride (Normal Saline 0.9%) 1,000 mls @ 0 mls/hr IV .Q0M [facility] Lorazepam (Ativan) 2 mg SLOW IVP Q1H PRN PRN Reason: Breakthrough agitation Stop: 04/27/18 13:03 Last Admin: 03/28/18 19:10 Dose: 2 mg Methylprednisolone Sodium Succinate (Solu-Medrol) 20 mg IVP Q6HR [facility] Last Admin: 03/30/18 12:03 Dose: 20 mg Morphine Sulfate (Morphine Sulfate) 2 mg SLOW IVP Q1H PRN PRN Reason: BREAKTHROUGH PAIN/AGITATION Stop: 04/27/18 13:03 Pantoprazole Sodium (Protonix) 40 mg IVP DAILY [facility] Polyethylene Glycol (Miralax) 17 gm PO DAILY [facility] Last Admin: 03/30/18 09:49 Dose: 17 gm Propofol (Diprivan) 1,000 mg IV INF PRN; Protocol PRN Reason: TO ACHIEVE GOAL RASS Stop: 04/27/18 13:03 Last Admin: 03/29/18 05:38 Dose: 1,000 mg Sodium Biphosphate/Sodium Phosphate (Fleet Enema) 133 ml FS Q8H PRN PRN Reason: Constipation Last Admin: 03/22/18 20:56 Dose: 133 ml Sodium Chloride (Flush - Normal Saline) 10 ml IVF Q12HR [facility] Last Admin: 03/30/18 09:50 Dose: 10 ml Sodium Chloride (Flush - Normal Saline) 10 ml IVF PRN PRN PRN Reason: Saline Flush Last Admin: 03/17/18 14:18 Dose: 10 ml
[2018-03-30] MEDS: CASPOFUNGIN ACETATE IVPB SCH (20:54)
[2018-03-30] MEDS: SODIUM CHLORIDE 0.9% IVPB SCH (20:54)
--- NOTE | 2018-03-31 02:41 | PRG ---
DATE OF SERVICE: 03/30/2018 SUBJECTIVE: The patient is still in life support, noted with following vital signs. OBJECTIVE: VITAL SIGNS: Blood pressure 95/56, respiratory rate of 14, pulse 80, O2 saturation 98%. HEENT: Remarkable with tracheal tube in place. CARDIOVASCULAR SYSTEM: First and second heart sounds were heard. RESPIRATORY SYSTEM: Revealed vented sounds. DIGESTIVE SYSTEM: Revealed a benign abdomen. EXTREMITIES: No peripheral edema. IMPRESSION: 1. Cardiopulmonary failure in the context of severe Pneumocystis carinii pneumonia. 2. Hyponatremia, which seems to have resolved. 3. Advanced human immunodeficiency virus/acquired immunodeficiency syndrome. PLAN: Continue current renal supportive measures.
[2018-03-31 05:02] LABS: Band 4 % (5-11); Hemoglobin 12.7 g/dL (14.0-18.0); Lymphocytes 5 % (21-51); MDiff Complete? YES; Mean Corpuscular HGB CONC 33.5 g/dL (32.0-36.0); Mean Corpuscular Hemoglobin 29.7 pg (27.0-31.0); Mean Corpuscular Volume 88.6 fL (78.0-98.0); Mean Platelet Volume 7.9 fL (7.4-10.4); Monocytes 3 % (0-10); Neutrophil 88 % (42-75); PLT Morphology Comment Appears Adequate; Platelet Count 225 thou/uL (130-400); RBC Distribution Width 12.6 % (11.5-14.5); Red Blood Cell (RBC) Count 4.28 mill/uL (4.70-6.10)
[2018-03-31 05:10] LABS: Anion Gap 12 mmol/L (10-20); BUN (Urea Nitrogen) 23 mg/dL (8.9-20.6); Calc. Creatinine Clearance 159 mL/min (70-130); Calcium 8.9 mg/dL (7.8-10.44); Carbon Dioxide 27 mmol/L (22-29); Chloride 101 mmol/L (98-107); Estimated GFR-MDRD Greater than 90; Glucose 160 mg/dL (70-105); Potassium 4.3 mmol/L (3.5-5.1); Sodium 136 mmol/L (136-145)
[2018-03-31 07:55] LABS: Actual Bicarbonate (HCO3a) 31.6 mEq/L (22-28); Base Excess (BEa) 6.9 mEq/L (-2.0 to +3.0); CO2 Tension 45.5 mmHg (35.0-45.0); Calcium, Ionized 1.17 mmol/L (1.12-1.30); Carboxyhemoglobin (COHb) 1.2 gm% (0.0-3.0); Hemoglobin (Hb) 13.6 g/dL (14.0-18.0); O2 Tension (PaO2) 77.9 mmHg (80.0-100.0); Potassium - ABG Lab 4.19 mmol/L (3.70-5.30); pH, Arterial 7.46 (7.35-7.45)
[2018-03-31 07:57] LABS: ALV-art Gradient 150.425 (0-20); Puncture Site RR
[2018-03-31] MEDS ORDERED: Pantoprazole 40 MG VIAL IVP SCH (09:00)
[2018-03-31] MEDS ORDERED: DC Sedation Protocol FS ONE (09:12)
[2018-03-31] MEDS: Enoxaparin Sodium 40 MG/0.4 ML SYRINGE SC SCH (09:32)
--- NOTE | 2018-03-31 09:44 | RAD ---
PORTABLE AP CHEST XRAY: DATE: 03/31/18. HISTORY: On ventilator. COMPARISON: 03/30/18. FINDINGS: Endotracheal tube and nasogastric tube remain in place. The cardiac silhouette is magnified by proje ction. Increased interstitial and alveolar opacities are again seen throughout the lungs bilaterally with the greater degree of airspace opacity within the lateral aspect of the left mid lung zone. Dillon bcutaneous emphysema is again seen bilaterally within the upper chest and in the supra- and infraclav icular locations. No obvious pneumothorax or pneumomediastinum is appreciated. However, the exact e tiology for subcutaneous emphysema is not delineated on this exam. No other interval change. IMPRESSION: 1. Subcutaneous emphysema bilaterally within the supraclavicular and infraclavicular locations. The exact etiology for subcutaneous emphysema is uncertain. No obvious pneumothorax is seen. Clinical correlation is recommended. Continued followup is suggested. 2. Extensive interstitial and alveolar opacities throughout the lungs bilaterally with the greater d egree of opacification left mid lung zone laterally. 3. Endotracheal tube and nasogastric tubes stable in position. POS: [facility]
[2018-03-31] MEDS: Polyethylene Glycol 3350 17 GM Packet PO SCH (09:59)
--- NOTE | 2018-03-31 12:43 | PRG ---
DATE OF SERVICE: 03/31/2018 SUBJECTIVE: This morning, he is awake, alert, and responsive. All his sedation was withheld this mo rning. OBJECTIVE: VITAL SIGNS: Blood pressure is 100/80, pulse 83, sats are , temperature 99.7. GENERAL: Awake, alert and responsive, off all sedation. CHEST: Reveals decreased breath sounds, minimal rhonchi. CARDIAC: Normal S1, S2, no gallops. ABDOMEN: Soft, no masses. LABORATORY DATA: His pO2 was 77, pCO2 was 45, pH 7.46 on a rate of 10, 8 of PEEP. White count 11, 000. His electrolytes are normal. All cultures so far negative. X-RAY FINDINGS: X-ray shows bilateral infiltrates, much improved. IMPRESSION: 1. Human immunodeficiency virus. 2. Pneumocystis pneumonia. PLAN: Continue present antibiotics, nebulizer treatments, supportive care. Steroids. Nutrition and PT. One-half hour critical care time.
--- NOTE | 2018-03-31 14:23 | PRG ---
DATE OF SERVICE: 03/31/2018 SUBJECTIVE: Mr. Armijo has been extubated. He is awake, oriented, feeling much better. No chest naa n or abdominal pain, or diarrhea. OBJECTIVE: VITAL SIGNS: T-max is 99.4, blood pressure 96/47, pulse 82, O2 sat 95% on 5 liters nasal cannula. HEENT: Ocular movements conjugate. LUNGS: With a few crackles scattered. No wheezing. CARDIOVASCULAR: S1 and S2, regular rate. ABDOMEN: Soft and not distended. No edema. Moves all extremities equally. LABORATORY DATA: White cell count 11,000, hemoglobin 12, platelets 225. Sodium 136, creatinine 0.68 . ASSESSMENT AND DISCUSSION: Advanced human immunodeficiency virus infection with pneumocystis pneumon ia, transient deterioration, possibly due to immune reconstitution or just the natural course of his illness. Since he had very severe pneumonia and typically the immune reconstitution syndrome has its onset a few weeks after initiation of antiretroviral therapy because he takes that long for the immu ne system to start recovering. Anyways, at this point, I will continue pentamidine, Solu-Medrol q.6 hours and the next few days, sta rt tapering Solu-Medrol, switch to oral prednisone and continue pentamidine for a full 21 days from t he initiation of therapy. The patient will need prophylaxis, probably with Bactrim and in a few days , we will start antiretroviral therapy as well.
--- NOTE | 2018-03-31 14:50 | PDOC.PN ---
- Subjective Encounter Start Date: 03/31/18 Encounter Start Time: 14:00 Subjective: got extubated this am -: no sob, is oriented well - Objective Resuscitation Status: Resuscitation Status FULL:Full Resuscitation MAR Reviewed: Yes Vital Signs & Weight: Vital Signs (12 hours) Temp Pulse Resp BP Pulse Ox 03/31/18 14:15 103 H 28 H 88 L 03/31/18 12:00 98.6 F 03/31/18 10:35 87 27 H 95 03/31/18 09:15 94 38 H 95 03/31/18 08:00 98.7 F 03/31/18 07:48 83 92/50 L 03/31/18 05:37 23 H 03/31/18 04:00 98.9 F 19 Weight Admit Weight 176 lb Weight 164 lb 3.91 oz Most Recent Monitor Data Heart Rate from ECG 112 NIBP 119/71 NIBP BP-Mean 82 Respiration from ECG 41 SpO2 89 I&O: 03/30/18 03/31/18 04/01/18 06:59 06:59 06:59 Intake Total 1461.5 1861 Output Total 2627 1762 435 Balance -1165.5 99 -435 Result Diagrams: 03/31/18 04:40 03/31/18 04:40 Phys Exam - Physical Examination HEENT: PERRLA, moist MMs Neck: no JVD, supple Respiratory: no wheezing rales+ Cardiovascular: RRR, no significant murmur Gastrointestinal: soft, non-tender, positive bowel sounds Musculoskeletal: no edema, pulses present Neurological: non-focal, moves all 4 limbs Psychiatric: normal affect, A&O x 3 Dx/Plan (1) Acute respiratory failure with hypoxia Code(s): J96.01 - ACUTE RESPIRATORY FAILURE WITH HYPOXIA Status: Acute (2) PNA (pneumonia) Code(s): J18.9 - PNEUMONIA, UNSPECIFIED ORGANISM Status: Acute Qualifiers: 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 (3) AIDS (acquired immune deficiency syndrome) Status: Acute Comment: CD4 count of 14. Anti-retrovirals held for now (4) Sepsis Code(s): A41.9 - SEPSIS, UNSPECIFIED ORGANISM Status: Acute Comment: PCP with AIDS - Plan is on pentamidine, steroids, nebs -: continue cospofungin -: mobilize inside the room in ccu -: oral solid diet -: had some barotrauma with subcut emphysema likely from vent * . Review of Systems - Medications/Allergies Allergies/Adverse Reactions: Allergies Allergy/AdvReac Type Severity Reaction Status Date / Time No Known Allergies Allergy Verified 03/15/18 03:05 Medications: Current Medications Acetaminophen (Tylenol) 650 mg PO Q4H PRN PRN Reason: Headache/Fever or Pain Last Admin: 03/28/18 14:48 Dose: 650 mg Albuterol/Ipratropium (Duoneb) 3 ml NEB [id number] [facility] Last Admin: 03/31/18 14:15 Dose: 3 ml Enoxaparin Sodium (Lovenox) 40 mg SC 0900 [facility] Last Admin: 03/31/18 09:32 Dose: 40 mg Pentamidine Isethionate 300 mg (/ Dextrose/Water) 250 mls @ 250 mls/hr IVPB Q24HR [facility] Last Admin: 03/31/18 09:32 Dose: 250 mls Caspofungin 50 mg/ Sodium (Chloride) 250 mls @ 250 mls/hr IVPB 2100 [facility] Last Admin: 03/30/18 20:54 Dose: 250 mls Midazolam HCl (Versed) 100 mls @ 0 mls/hr IVPB INF [facility]; Protocol Last Admin: 03/30/18 11:59 Dose: 100 mls Sodium Chloride (Normal Saline 0.9%) 1,000 mls @ 0 mls/hr IV .Q0M [facility] Methylprednisolone Sodium Succinate (Solu-Medrol) 20 mg IVP Q6HR [facility] Last Admin: 03/31/18 13:02 Dose: 20 mg Pantoprazole Sodium (Protonix) 40 mg IVP DAILY [facility] Last Admin: 03/31/18 09:32 Dose: 40 mg Polyethylene Glycol (Miralax) 17 gm PO DAILY [facility] Last Admin: 03/31/18 09:59 Dose: Not Given Sodium Biphosphate/Sodium Phosphate (Fleet Enema) 133 ml FS Q8H PRN PRN Reason: Constipation Last Admin: 03/22/18 20:56 Dose: 133 ml Sodium Chloride (Flush - Normal Saline) 10 ml IVF Q12HR [facility] Last Admin: 03/31/18 09:33 Dose: 10 ml Sodium Chloride (Flush - Normal Saline) 10 ml IVF PRN PRN PRN Reason: Saline Flush Last Admin: 03/17/18 14:18 Dose: 10 ml
[2018-03-31] MEDS ORDERED: Mag-Al 1200 mg/1200 mg/30 ML UDCUP PO PRN (18:04)
[2018-03-31] MEDS ORDERED: Piperacillin/Tazobactam 4.5 GM VIAL ONE (20:24)
[2018-03-31] MEDS: Fleet Enema 133 ML BOT FS PRN (22:37)
[2018-04-01] MEDS: SODIUM CHLORIDE 0.9% IVPB SCH ×2 (00:02→21:44)
[2018-04-01] MEDS: CASPOFUNGIN ACETATE IVPB SCH ×2 (00:02→21:44)
[2018-04-01 06:02] LABS: Anion Gap 12 mmol/L (10-20); BUN (Urea Nitrogen) 17 mg/dL (8.9-20.6); Calc. Creatinine Clearance 157 mL/min (70-130); Calcium 8.9 mg/dL (7.8-10.44); Carbon Dioxide 30 mmol/L (22-29); Chloride 101 mmol/L (98-107); Estimated GFR-MDRD Greater than 90; Sodium 139 mmol/L (136-145)
[2018-04-01 06:03] LABS: Glucose 59 mg/dL (70-105)
[2018-04-01] MEDS ORDERED: Dextrose 50% Abboject 50 ML SYRINGE ONE (06:03)
[2018-04-01] MEDS ORDERED: Dextrose 50% Abboject 50 ML SYRINGE SLOW IVP PRN ×2 (06:24)
[2018-04-01 06:45] LABS: Hemoglobin 14.6 g/dL (14.0-18.0); Lymphocytes 13 % (21-51); MDiff Complete? YES; Mean Corpuscular HGB CONC 32.7 g/dL (32.0-36.0); Mean Corpuscular Hemoglobin 29.2 pg (27.0-31.0); Mean Corpuscular Volume 89.3 fL (78.0-98.0); Mean Platelet Volume 7.8 fL (7.4-10.4); Monocytes 5 % (0-10); Neutrophil 82 % (42-75); PLT Morphology Comment Appears Adequate; Platelet Count 233 thou/uL (130-400); RBC Distribution Width 12.7 % (11.5-14.5); RBC Morphology Normal; White Blood Cell (WBC) Count 10.2 thou/uL (4.8-10.8)
[2018-04-01] MEDS: Acetaminophen 325 MG TAB PO PRN ×4 (06:49→21:44)
--- NOTE | 2018-04-01 07:42 | RAD ---
AP VIEW OF THE CHEST: INDICATION: History of intubation. COMPARISON: Prior exam dated 03/31/18. FINDINGS: The patient has been intervally extubated with removal of gastric catheter. There are worsening pare nchymal opacities within both lungs. Cardiomegaly persists. Small pleural effusions are present. N o pneumothorax is evident. IMPRESSION: 1. Interval extubation and removal of gastric catheter. 2. Worsening parenchymal opacities within both lungs. 3. Stable cardiomegaly. 4. No pneumothorax. POS: [facility]
[2018-04-01] MEDS: Vancomycin HCl 1.5 GM in Sodium Chloride 0.9% 250 ML 300 ML IVPB SCH ×2 (08:42→15:03)
[2018-04-01] MEDS: Polyethylene Glycol 3350 17 GM Packet PO SCH (08:51)
[2018-04-01] MEDS: Enoxaparin Sodium 40 MG/0.4 ML SYRINGE SC SCH (08:51)
[2018-04-01] MEDS ORDERED: Vancomycin HCl 1.25 GM in Sodium Chloride 0.9% 250 ML 300 ML IVPB SCH (09:00)
--- NOTE | 2018-04-01 11:55 | PDOC.PN ---
- Subjective Encounter Start Date: 04/01/18 Encounter Start Time: 11:00 Subjective: on non rebreather -: has sob+ - Objective Resuscitation Status: Resuscitation Status FULL:Full Resuscitation MAR Reviewed: Yes Vital Signs & Weight: Vital Signs (12 hours) Temp Pulse Resp Pulse Ox 04/01/18 10:43 104 H 32 H 96 04/01/18 09:50 97 04/01/18 08:00 100.1 F H 99 04/01/18 06:20 88 L 04/01/18 06:00 100.3 F H 04/01/18 05:00 97.5 F L 04/01/18 04:00 98.6 F 04/01/18 00:00 98.7 F Weight Admit Weight 176 lb Weight 173 lb 15.115 oz Most Recent Monitor Data Heart Rate from ECG 112 NIBP 99/66 NIBP BP-Mean 79 Respiration from ECG 32 SpO2 97 I&O: 03/31/18 04/01/18 04/02/18 06:59 06:59 06:59 Intake Total 1861 1040 550 Output Total 1762 1447 Balance 99 -407 550 Result Diagrams: 04/01/18 05:40 04/01/18 05:40 Phys Exam - Physical Examination HEENT: PERRLA, moist MMs Neck: no JVD, supple Respiratory: no wheezing rales++ Cardiovascular: RRR, no significant murmur Gastrointestinal: soft, non-tender, positive bowel sounds Musculoskeletal: no edema, pulses present Neurological: non-focal, moves all 4 limbs Psychiatric: A&O x 3 Dx/Plan (1) Acute respiratory failure with hypoxia Code(s): J96.01 - ACUTE RESPIRATORY FAILURE WITH HYPOXIA Status: Acute (2) PNA (pneumonia) Code(s): J18.9 - PNEUMONIA, UNSPECIFIED ORGANISM Status: Acute Qualifiers: 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 (3) AIDS (acquired immune deficiency syndrome) Status: Acute Comment: CD4 count of 14. Anti-retrovirals held for now (4) Sepsis Code(s): A41.9 - SEPSIS, UNSPECIFIED ORGANISM Status: Acute Comment: PCP with AIDS - Plan on vanc and meropenem -: pentamidine, cospofungin, steroids, nebs -: prognosis guarded -: still has significant sob -: oral diet, to amb as tolerated * . Review of Systems - Medications/Allergies Allergies/Adverse Reactions: Allergies Allergy/AdvReac Type Severity Reaction Status Date / Time No Known Allergies Allergy Verified 03/15/18 03:05 Medications: Current Medications Acetaminophen (Tylenol) 650 mg PO Q4H PRN PRN Reason: Headache/Fever or Pain Last Admin: 04/01/18 06:49 Dose: 650 mg Albuterol/Ipratropium (Duoneb) 3 ml NEB [id number] [facility] Last Admin: 04/01/18 10:43 Dose: 3 ml Dextrose/Water (Dextrose 50%) 25 gm SLOW IVP ONE PRN PRN Reason: GLUCOSE < 70 Stop: 04/02/18 23:59 Enoxaparin Sodium (Lovenox) 40 mg SC 0900 [facility] Last Admin: 04/01/18 08:51 Dose: 40 mg Pentamidine Isethionate 300 mg (/ Dextrose/Water) 250 mls @ 250 mls/hr IVPB Q24HR [facility] Last Admin: 04/01/18 09:53 Dose: 250 mls Caspofungin 50 mg/ Sodium (Chloride) 250 mls @ 250 mls/hr IVPB 2100 [facility] Last Admin: 04/01/18 00:02 Dose: 250 mls Sodium Chloride (Normal Saline 0.9%) 1,000 mls @ 0 mls/hr IV .Q0M [facility] Levofloxacin 750 mg/ Device 150 mls @ 100 mls/hr IVPB Q24HR [facility] Last Admin: 04/01/18 08:46 Dose: 150 mls Meropenem 1 gm/ Device 50 mls @ 100 mls/hr IVPB Q8HR [facility] Vancomycin HCl 1.5 gm/ Sodium (Chloride) 300 mls @ 200 mls/hr IVPB Q8H [facility] Last Admin: 04/01/18 08:42 Dose: 300 mls Methylprednisolone Sodium Succinate (Solu-Medrol) 20 mg IVP Q6HR [facility] Last Admin: 04/01/18 06:07 Dose: 20 mg Miscellaneous Medication (Pharmacy To Dose) 0 each IVPB ASDIR [facility] Pantoprazole Sodium (Protonix) 40 mg PO DAILY [facility] Last Admin: 04/01/18 08:51 Dose: 40 mg Polyethylene Glycol (Miralax) 17 gm PO DAILY [facility] Last Admin: 04/01/18 08:51 Dose: 17 gm Sodium Biphosphate/Sodium Phosphate (Fleet Enema) 133 ml FS Q8H PRN PRN Reason: Constipation Last Admin: 03/31/18 22:37 Dose: 133 ml Sodium Chloride (Flush - Normal Saline) 10 ml IVF Q12HR [facility] Last Admin: 04/01/18 08:51 Dose: 10 ml Sodium Chloride (Flush - Normal Saline) 10 ml IVF PRN PRN PRN Reason: Saline Flush Last Admin: 03/17/18 14:18 Dose: 10 ml
[2018-04-01] MEDS ORDERED: Furosemide 40 MG/4 ML VIAL SLOW IVP SCH (12:30)
[2018-04-01] MEDS: MEROPENEM 1 GM/50 ML 1 GM in Premix Bag 1 BAG IVPB SCH ×2 (13:24→23:40)
[2018-04-01] MEDS ORDERED: Meropenem 1 GM in Sodium Chloride 0.9% 100 ML IVPB SCH (14:00)
[2018-04-01] MEDS: Mag-Al 1200 mg/1200 mg/30 ML UDCUP PO PRN (14:26)
--- NOTE | 2018-04-01 15:52 | PRG ---
DATE OF SERVICE: 04/01/2018 SUBJECTIVE: Mr. Orestes Armijo is complaining about being in the Critical Care Unit and wants to be moved back to the intermediate care unit. He was extubated yesterday. He has facemask O2 on. His intake and outputs is negative 407 coming into today. PHYSICAL EXAMINATION: VITAL SIGNS: He did have a temperature up to 100.3 earlier today, but no high fevers. The remainder of his exam is unchanged. LABORATORY DATA: White count is 10.2, hemoglobin 14.6, platelets 233. Electrolytes were unremarkable. IMPRESSION: Pneumocystis pneumonia with severe inflammatory response (acute respiratory distress syndrome). It is resolving very slowly and I have explained to him that he will likely be in the hospital for several more weeks. His significant other has been living in the room with him and Mr. Armijo asked me to get him a bed. I have asked his significant other to find a way to get his vehicle over here, so he can go home intermittently. Continue with current antimicrobial therapy. Cultures from his bronchoscopy revealed nothing unexpected. His quantitative lavage cultures did not grow any bacteria. We will continue with current antimicrobial management per Infectious Disease. He is stable to move to Intermediate Care Unit. UNIQUE
[2018-04-01 19:10] LABS: Fungus Stain Final report (.)
--- NOTE | 2018-04-01 22:04 | PRG ---
DATE OF SERVICE: 04/01/2018 SUBJECTIVE: The patient noted with the following vital signs. PHYSICAL EXAMINATION: VITAL SIGNS: Afebrile with temperature 99.7, pulse 75, respiratory failure 30, O2 sat 93%, blood pre ssure 100/54. HEENT: Unremarkable. The patient has been extubated. CARDIOVASCULAR: First and second heart sounds were heard. RESPIRATORY: Revealed vented sounds. DIGESTIVE: Revealed a benign abdomen. EXTREMITIES: No peripheral edema. SKIN: No new gross rash. LYMPHATICS: No peripheral lymphadenopathy. IMPRESSION: 1. Pulmonary failure in the context of PCP. 2. Advanced human immunodeficiency virus/acquired immunodeficiency syndrome. 3. Hyponatremia, which has resolved. PLAN: Continue current renal supportive measures.
[2018-04-02] MEDS: Vancomycin HCl 1.5 GM in Sodium Chloride 0.9% 250 ML 300 ML IVPB SCH ×2 (01:23→09:51)
[2018-04-02 05:14] LABS: Band 2 % (5-11); Hemoglobin 13.2 g/dL (14.0-18.0); Lymphocytes 13 % (21-51); MDiff Complete? YES; Mean Corpuscular HGB CONC 33.2 g/dL (32.0-36.0); Mean Corpuscular Hemoglobin 29.5 pg (27.0-31.0); Mean Corpuscular Volume 88.9 fL (78.0-98.0); Mean Platelet Volume 8.5 fL (7.4-10.4); Monocytes 4 % (0-10); Neutrophil 81 % (42-75); PLT Morphology Comment Appears Adequate; Platelet Count 192 thou/uL (130-400); RBC Distribution Width 12.8 % (11.5-14.5); Red Blood Cell (RBC) Count 4.47 mill/uL (4.70-6.10); White Blood Cell (WBC) Count 7.1 thou/uL (4.8-10.8)
[2018-04-02 05:22] LABS: Anion Gap 12 mmol/L (10-20); BUN (Urea Nitrogen) 16 mg/dL (8.9-20.6); Calc. Creatinine Clearance 181 mL/min (70-130); Calcium 8.9 mg/dL (7.8-10.44); Carbon Dioxide 29 mmol/L (22-29); Chloride 102 mmol/L (98-107); Estimated GFR-MDRD Greater than 90; Glucose 93 mg/dL (70-105); Potassium 4.1 mmol/L (3.5-5.1); Sodium 139 mmol/L (136-145)
[2018-04-02] MEDS: MEROPENEM 1 GM/50 ML 1 GM in Premix Bag 1 BAG IVPB SCH ×2 (06:37→15:58)
[2018-04-02] MEDS: Enoxaparin Sodium 40 MG/0.4 ML SYRINGE SC SCH (08:41)
[2018-04-02] MEDS: Furosemide 40 MG/4 ML VIAL SLOW IVP SCH (08:42)
[2018-04-02] MEDS: Polyethylene Glycol 3350 17 GM Packet PO SCH (08:42)
--- NOTE | 2018-04-02 09:18 | RAD ---
Pc: PORTABLE CHEST: History: Respiratory distress. Comparison: Prior day's exam. FINDINGS: The interstitial alveolar lung change is stable. Subcutaneous emphysema over the chest has improved a s well as the air along the left heart border. IMPRESSION: Stable interstitial alveolar lung change. Improving subcutaneous emphysema. POS: [facility]
[2018-04-02] MEDS ORDERED: Vancomycin HCl 1.5 GM in Sodium Chloride 0.9% 250 ML 300 ML IVPB SCH (10:00)
[2018-04-02 10:34] LABS: Vancomycin, Trough 23.5 ug/mL
[2018-04-02] MEDS: Vancomycin HCl 1.25 GM in Sodium Chloride 0.9% 250 ML 250 ML IVPB SCH ×2 (12:06→21:52)
--- NOTE | 2018-04-02 12:21 | PDOC.PN ---
- Subjective Encounter Start Date: 04/02/18 Encounter Start Time: 12:20 Subjective: breathing better -: is on ventimask -: eating better, mobilizing around his bed - Objective Resuscitation Status: Resuscitation Status FULL:Full Resuscitation MAR Reviewed: Yes Vital Signs & Weight: Vital Signs (12 hours) Temp Pulse Resp BP Pulse Ox 04/02/18 11:19 99.0 F 115 H 20 87/53 L 97 04/02/18 11:01 100 20 93 L 04/02/18 07:37 95 04/02/18 07:35 74 20 94 L 04/02/18 07:31 99.2 F 68 20 126/87 97 04/02/18 07:17 98 04/02/18 04:20 98.9 F 70 29 H 101/65 92 L Weight Admit Weight 176 lb Weight 152 lb 3.2 oz Most Recent Monitor Data Heart Rate from ECG 94 NIBP 97/55 NIBP BP-Mean 69 Respiration from ECG 39 SpO2 97 I&O: 04/01/18 04/02/18 04/03/18 06:59 06:59 06:59 Intake Total 1040 3652 Output Total 1447 2525 400 Balance -407 1127 -400 Result Diagrams: 04/02/18 04:49 04/02/18 04:49 Phys Exam - Physical Examination HEENT: PERRLA, moist MMs Neck: no JVD, supple Respiratory: no wheezing rales++ Cardiovascular: RRR, no significant murmur Gastrointestinal: soft, no distention, positive bowel sounds Musculoskeletal: no edema, pulses present Neurological: non-focal, moves all 4 limbs Psychiatric: normal affect, A&O x 3 Dx/Plan (1) Acute respiratory failure with hypoxia Code(s): J96.01 - ACUTE RESPIRATORY FAILURE WITH HYPOXIA Status: Acute (2) PNA (pneumonia) Code(s): J18.9 - PNEUMONIA, UNSPECIFIED ORGANISM Status: Acute Qualifiers: 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 (3) AIDS (acquired immune deficiency syndrome) Status: Acute Comment: CD4 count of 14. Anti-retrovirals held for now (4) Sepsis Code(s): A41.9 - SEPSIS, UNSPECIFIED ORGANISM Status: Acute Comment: PCP with AIDS - Plan on vanc, levaquin and meropenem -: pentamidine, steroids, nebs, cospofungin -: encourage po intake, ensure 1 can tid -: i.spirometry -: subcut emphysema is clearing up clinically * . Review of Systems - Medications/Allergies Allergies/Adverse Reactions: Allergies Allergy/AdvReac Type Severity Reaction Status Date / Time No Known Allergies Allergy Verified 03/15/18 03:05 Medications: Current Medications Acetaminophen (Tylenol) 650 mg PO Q4H PRN PRN Reason: Headache/Fever or Pain Last Admin: 04/01/18 21:44 Dose: 650 mg Al Hydroxide/Mg Hydroxide (Maalox) 30 ml PO Q6H PRN PRN Reason: Heartburn or Indigestion Last Admin: 04/01/18 14:26 Dose: 30 ml Albuterol/Ipratropium (Duoneb) 3 ml NEB [id number] Last Admin: 04/02/18 11:01 Dose: 3 ml Dextrose/Water (Dextrose 50%) 25 gm SLOW IVP ONE PRN PRN Reason: GLUCOSE < 70 Stop: 04/02/18 23:59 Enoxaparin Sodium (Lovenox) 40 mg SC 0900 [facility] Last Admin: 04/02/18 08:41 Dose: 40 mg Furosemide (Lasix) 40 mg SLOW IVP DAILY [facility] Last Admin: 04/02/18 08:42 Dose: 40 mg Pentamidine Isethionate 300 mg (/ Dextrose/Water) 250 mls @ 250 mls/hr IVPB Q24HR [facility] Last Admin: 04/02/18 11:04 Dose: 250 mls Caspofungin 50 mg/ Sodium (Chloride) 250 mls @ 250 mls/hr IVPB 2100 [facility] Last Admin: 04/01/18 21:44 Dose: 250 mls Sodium Chloride (Normal Saline 0.9%) 1,000 mls @ 0 mls/hr IV .Q0M [facility] Levofloxacin 750 mg/ Device 150 mls @ 100 mls/hr IVPB Q24HR [facility] Last Admin: 04/02/18 08:37 Dose: 150 mls Meropenem 1 gm/ Device 50 mls @ 100 mls/hr IVPB Q8HR [facility] Last Admin: 04/02/18 06:37 Dose: 50 mls Vancomycin HCl 1.25 gm/ Sodium (Chloride) 250 mls @ 166.667 mls/hr IVPB 0400, 1200,2000 [facility] Last Admin: 04/02/18 12:06 Dose: 250 mls Clindamycin Phosphate/Dextrose (600 mg/ Device) 50 mls @ 100 mls/hr IVPB Q8HR [facility] Methylprednisolone Sodium Succinate (Solu-Medrol) 20 mg IVP Q6HR [facility] Last Admin: 04/02/18 12:06 Dose: 20 mg Miscellaneous Medication (Pharmacy To Dose) 0 each IVPB ASDIR [facility] Pantoprazole Sodium (Protonix) 40 mg PO DAILY [facility] Last Admin: 04/02/18 08:42 Dose: 40 mg Polyethylene Glycol (Miralax) 17 gm PO DAILY [facility] Last Admin: 04/02/18 08:42 Dose: 17 gm Sodium Biphosphate/Sodium Phosphate (Fleet Enema) 133 ml FS Q8H PRN PRN Reason: Constipation Last Admin: 03/31/18 22:37 Dose: 133 ml Sodium Chloride (Flush - Normal Saline) 10 ml IVF Q12HR [facility] Last Admin: 04/02/18 08:42 Dose: 10 ml Sodium Chloride (Flush - Normal Saline) 10 ml IVF PRN PRN PRN Reason: Saline Flush Last Admin: 03/17/18 14:18 Dose: 10 ml
--- NOTE | 2018-04-02 14:44 | PRG ---
DATE OF SERVICE: 04/02/2018 SUBJECTIVE: He says he feels much better today. He said he slept well last night. OBJECTIVE: VITAL SIGNS: This morning, he is afebrile, heart rate is in the 70s, respiratory rate is 20, oximetr y is 94-95 on 40% Ventimask and up to 97 this afternoon, blood pressure is 87/53 this morning and 126 /87 earlier. Intake and output, positive 1127. He took in 1150 mL orally. LUNGS: He still has crackles at his bases, but this is better compared to a week ago. HEART: Regular rhythm. ABDOMEN: Soft. LABORATORY DATA: White count is 7.1, hemoglobin 13.2, platelets 292,000. Electrolytes are normal. IMPRESSION: Pneumocystis pneumonia in an immunocompromised host, clinically slowly improving. PLAN: Continue current care. We will hold off on diuresis today and watch his fluid balance, clinic al condition, and consider giving him more Lasix in the morning.
[2018-04-02] MEDS: SODIUM CHLORIDE 0.9% IVPB SCH (20:04)
[2018-04-02] MEDS: CASPOFUNGIN ACETATE IVPB SCH (20:04)
[2018-04-02] MEDS: Acetaminophen 325 MG TAB PO PRN (20:16)
[2018-04-02] MEDS: Mag-Al 1200 mg/1200 mg/30 ML UDCUP PO PRN (21:59)
[2018-04-03] MEDS: MEROPENEM 1 GM/50 ML 1 GM in Premix Bag 1 BAG IVPB SCH ×2 (00:32→05:54)
[2018-04-03] MEDS: Vancomycin HCl 1.25 GM in Sodium Chloride 0.9% 250 ML 250 ML IVPB SCH (03:03)
[2018-04-03 04:03] LABS: #Eosinphils 0.1 thou/uL (0.0-0.7); #Lymphocytes 0.7 thou/uL (1.20-3.40); #Monocytes 0.3 thou/uL (0.11-0.59); #Neutrophils 7.4 thou/uL (1.40-6.50); %Lymphocytes 7.9 % (21.0-51.0); %Monocytes 3.8 % (0.0-10.0); %Neutrophils 87.3 % (42.0-75.0); Hemoglobin 12.8 g/dL (14.0-18.0); Mean Corpuscular HGB CONC 33.3 g/dL (32.0-36.0); Mean Corpuscular Hemoglobin 29.7 pg (27.0-31.0); Mean Corpuscular Volume 89.2 fL (78.0-98.0); Mean Platelet Volume 8.1 fL (7.4-10.4); Platelet Count 191 thou/uL (130-400); RBC Distribution Width 12.7 % (11.5-14.5); White Blood Cell (WBC) Count 8.5 thou/uL (4.8-10.8)
[2018-04-03 04:22] LABS: Anion Gap 12 mmol/L (10-20); BUN (Urea Nitrogen) 20 mg/dL (8.9-20.6); Calc. Creatinine Clearance 142 mL/min (70-130); Calcium 8.7 mg/dL (7.8-10.44); Carbon Dioxide 28 mmol/L (22-29); Chloride 101 mmol/L (98-107); Estimated GFR-MDRD Greater than 90; Glucose 86 mg/dL (70-105); Potassium 4.1 mmol/L (3.5-5.1); Sodium 137 mmol/L (136-145)
[2018-04-03] MEDS ORDERED: Clopidogrel Bisulfate 75 MG TAB ONE (07:58)
--- NOTE | 2018-04-03 08:11 | RAD ---
SINGLE VIEW CHEST: Date: 04/03/18 COMPARISON: 04/02/18. HISTORY: Ventilated patient with respiratory failure. FINDINGS: Single view of the chest shows a normal sized cardiomediastinal silhouette. There are diffuse mixed a lveolar/interstitial opacities, unchanged. No pleural effusion is seen. IMPRESSION: Stable multifocal mixed infiltrates. POS: CET
[2018-04-03] MEDS: Enoxaparin Sodium 40 MG/0.4 ML SYRINGE SC SCH (09:23)
[2018-04-03] MEDS: Furosemide 40 MG/4 ML VIAL SLOW IVP SCH (09:23)
[2018-04-03] MEDS: Polyethylene Glycol 3350 17 GM Packet PO SCH (09:24)
--- NOTE | 2018-04-03 10:46 | PDOC.PN ---
- Subjective Encounter Start Date: 04/03/18 Encounter Start Time: 10:35 Subjective: sitting in chair, feels better -: is on nasal mask - Objective Resuscitation Status: Resuscitation Status FULL:Full Resuscitation MAR Reviewed: Yes Vital Signs & Weight: Vital Signs (12 hours) Temp Pulse Resp BP Pulse Ox 04/03/18 08:16 95 04/03/18 08:14 76 21 H 95 04/03/18 07:50 94 L 04/03/18 07:00 98.7 F 63 19 113/59 L 94 L 04/03/18 04:00 98.6 F 71 18 110/62 96 Weight Admit Weight 176 lb Weight 152 lb 8 oz Most Recent Monitor Data Heart Rate from ECG 94 NIBP 97/55 NIBP BP-Mean 69 Respiration from ECG 39 SpO2 97 I&O: 04/02/18 04/03/18 04/04/18 06:59 06:59 06:59 Intake Total 3652 866 Output Total 2525 1100 Balance 1127 -234 Result Diagrams: 04/03/18 03:27 04/03/18 03:33 Phys Exam - Physical Examination HEENT: PERRLA, moist MMs Neck: no JVD, supple Respiratory: no wheezing, no rales rhonchi++ Cardiovascular: RRR, no significant murmur Gastrointestinal: soft, non-tender, positive bowel sounds Musculoskeletal: no edema, pulses present Neurological: non-focal, moves all 4 limbs Psychiatric: normal affect, A&O x 3 Dx/Plan (1) Acute respiratory failure with hypoxia Code(s): J96.01 - ACUTE RESPIRATORY FAILURE WITH HYPOXIA Status: Acute (2) PNA (pneumonia) Code(s): J18.9 - PNEUMONIA, UNSPECIFIED ORGANISM Status: Acute Qualifiers: 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 (3) AIDS (acquired immune deficiency syndrome) Status: Acute Comment: CD4 count of 14. Anti-retrovirals held for now (4) Sepsis Code(s): A41.9 - SEPSIS, UNSPECIFIED ORGANISM Status: Acute Comment: PCP with AIDS - Plan is on pentamidine, cospofungin and steroids -: nebs -: encourage po intake, ensure 1 can tid -: counselled to exercise in room * . Review of Systems - Medications/Allergies Allergies/Adverse Reactions: Allergies Allergy/AdvReac Type Severity Reaction Status Date / Time No Known Allergies Allergy Verified 03/15/18 03:05 Medications: Current Medications Acetaminophen (Tylenol) 650 mg PO Q4H PRN PRN Reason: Headache/Fever or Pain Last Admin: 04/02/18 20:16 Dose: 650 mg Al Hydroxide/Mg Hydroxide (Maalox) 30 ml PO Q6H PRN PRN Reason: Heartburn or Indigestion Last Admin: 04/02/18 21:59 Dose: 30 ml Albuterol/Ipratropium (Duoneb) 3 ml NEB [id number] [facility] Last Admin: 04/03/18 08:14 Dose: 3 ml Enoxaparin Sodium (Lovenox) 40 mg SC 0900 [facility] Last Admin: 04/03/18 09:23 Dose: 40 mg Furosemide (Lasix) 40 mg SLOW IVP DAILY [facility] Last Admin: 04/03/18 09:23 Dose: 40 mg Pentamidine Isethionate 300 mg (/ Dextrose/Water) 250 mls @ 250 mls/hr IVPB Q24HR [facility] Last Admin: 04/03/18 09:24 Dose: 250 mls Caspofungin 50 mg/ Sodium (Chloride) 250 mls @ 250 mls/hr IVPB 2100 [facility] Last Admin: 04/02/18 20:04 Dose: 250 mls Sodium Chloride (Normal Saline 0.9%) 1,000 mls @ 0 mls/hr IV .Q0M [facility] Clindamycin Phosphate/Dextrose (600 mg/ Device) 50 mls @ 100 mls/hr IVPB Q8HR [facility] Methylprednisolone Sodium Succinate (Solu-Medrol) 20 mg IVP Q8HR [facility] Primaquine 26.3 Mg ( (15 Mg Base) Tab) 0 each PO Q24HR [facility] Pantoprazole Sodium (Protonix) 40 mg PO DAILY [facility] Last Admin: 04/03/18 09:23 Dose: 40 mg Polyethylene Glycol (Miralax) 17 gm PO DAILY [facility] Last Admin: 04/03/18 09:24 Dose: 17 gm Sodium Biphosphate/Sodium Phosphate (Fleet Enema) 133 ml FS Q8H PRN PRN Reason: Constipation Last Admin: 03/31/18 22:37 Dose: 133 ml Sodium Chloride (Flush - Normal Saline) 10 ml IVF Q12HR [facility] Last Admin: 04/03/18 09:24 Dose: 10 ml Sodium Chloride (Flush - Normal Saline) 10 ml IVF PRN PRN PRN Reason: Saline Flush Last Admin: 03/17/18 14:18 Dose: 10 ml
--- NOTE | 2018-04-03 13:27 | PRG ---
DATE OF SERVICE: 04/03/2018 Mr. Armijo is afebrile. He says he is feeling better. PHYSICAL EXAMINATION: VITAL SIGNS: Heart rate is in the 70s. He was sitting up in the chair today, respiratory rate was in the 20s. He had a mask nasal cannula on. I have asked respiratory to wean him down to just a can nula. Blood pressure 113/59. His lungs, heart, and abdomen are unchanged. LABORATORY DATA: White count 8.5, hemoglobin 12.8, platelets 191. His electrolytes were unremarkabl e yesterday, none today. IMPRESSION: 1. Pneumocystis pneumonia, slowly improving. 2. Human immunodeficiency virus positive. 3. Deconditioning. 4. Hypoxia secondary to pneumocystis pneumonia. PLAN: Slow weaning O2 and increasing activities is the goal at this point.
[2018-04-03] MEDS: Acetaminophen 325 MG TAB PO PRN (17:30)
--- NOTE | 2018-04-03 17:37 | PRG ---
DATE OF SERVICE: 04/03/2018 SUBJECTIVE: The patient was noted with the following vital signs. OBJECTIVE: VITAL SIGNS: Afebrile with temperature 99.2, pulse 83, respiratory rate of 20, O2 sat 94%, blood pre ssure 85/43. HEENT: Unremarkable. CARDIOVASCULAR SYSTEM: First and second heart sounds were heard. RESPIRATORY SYSTEM: Clear to auscultation. DIGESTIVE SYSTEM: Revealed a benign abdomen. EXTREMITIES: No peripheral edema. IMPRESSION: 1. Hyponatremia in the context of pulmonary pathology, improved. 2. Advanced human immunodeficiency virus infection/acquired immune deficiency syndrome. 3. Pneumocystis carinii pneumonia pneumonitis. PLAN: 1. Continue current measures. 2. Continue renal supportive measures. 3. Avoid potentially nephrotoxic agents.
[2018-04-03] MEDS: CASPOFUNGIN ACETATE IVPB SCH (21:12)
[2018-04-03] MEDS: SODIUM CHLORIDE 0.9% IVPB SCH (21:12)
[2018-04-04 06:55] LABS: Anion Gap 11 mmol/L (10-20); BUN (Urea Nitrogen) 25 mg/dL (8.9-20.6); Calc. Creatinine Clearance 154 mL/min (70-130); Calcium 9.1 mg/dL (7.8-10.44); Carbon Dioxide 28 mmol/L (22-29); Chloride 102 mmol/L (98-107); Estimated GFR-MDRD Greater than 90; Sodium 137 mmol/L (136-145)
[2018-04-04 06:58] LABS: Glucose 56 mg/dL (70-105); Hemoglobin 13.5 g/dL (14.0-18.0); Mean Corpuscular HGB CONC 32.8 g/dL (32.0-36.0); Mean Corpuscular Volume 88.5 fL (78.0-98.0); Mean Platelet Volume 8.1 fL (7.4-10.4); Platelet Count 179 thou/uL (130-400); RBC Distribution Width 12.9 % (11.5-14.5); Red Blood Cell (RBC) Count 4.67 mill/uL (4.70-6.10); White Blood Cell (WBC) Count 9.6 thou/uL (4.8-10.8)
[2018-04-04 07:39] LABS: Band 2 % (5-11); Eosinophils 2 % (0-10); Lymphocytes 15 % (21-51); MDiff Complete? YES; Monocytes 4 % (0-10); Neutrophil 76 % (42-75); RBC Morphology Normal; Reactive Lymphocytes 1 % (0-10)
--- NOTE | 2018-04-04 09:06 | RAD ---
PORTABLE CHEST 1 VIEW: DATE: 04/04/18. TIME: 4:51 a.m. HISTORY: Respiratory distress. FINDINGS/IMPRESSION: Comparison is made with the exam of the previous day. The heart size is normal. Diffused mixed alve olar interstitial opacities are again seen bilaterally. No pneumothoraces or large effusions are joann ntified. POS: AKUAH
[2018-04-04] MEDS: Furosemide 40 MG/4 ML VIAL SLOW IVP SCH (09:49)
[2018-04-04] MEDS: Enoxaparin Sodium 40 MG/0.4 ML SYRINGE SC SCH (09:49)
[2018-04-04] MEDS: Polyethylene Glycol 3350 17 GM Packet PO SCH (09:50)
--- NOTE | 2018-04-04 10:52 | PRG ---
DATE OF SERVICE: 04/04/2018 Orestes Armijo is feeling better. He has a giant bag of salty potato chips at the bedside that he was e ating for breakfast. I asked him to stay away from the high salt content foods for now. PHYSICAL EXAMINATION: VITAL SIGNS: He is afebrile, heart rate is in the 70s, respiratory rates in the low 30s to high 20s, oximetry is 94-97 on 4 liters. He was 97 when I was in the room. Blood pressure 97/63. Intake and output is positive 188. His oral intake 1140 mL. LUNGS: His lungs are clear. HEART: Regular rhythm. ABDOMEN: Soft. LABORATORY DATA: White count 9.6, hemoglobin 13.5, platelets 179. Electrolytes are normal. Glucose 56 this morning. IMPRESSION: Pneumocystis with transient intubation [facility] through this hospitalization. He appears to be finally clinically improving. Hopefully, this will be a sustained improvement. He is down to a 4 liter cannula now. Trying to increase his activity, encouraged him to go outside with oxygen an d sit outside in the cool air today just so he gets some hope that he will get out of the hospital. I do not think we need to be doing daily lab on him anymore. Continue to follow.
[2018-04-04] MEDS ORDERED: PRIMAQUINE PO SCH (12:00)
--- NOTE | 2018-04-04 13:51 | PRG ---
DATE OF SERVICE: 04/04/2018 PHYSICAL EXAMINATION: VITAL SIGNS: Afebrile, temperature 99.1, pulse 101, respiratory rate 18, O2 sat 98%. HEENT: Unremarkable. RESPIRATORY SYSTEM: Clear to auscultation. ABDOMEN: Digestive system revealed a benign abdomen. EXTREMITIES: No clubbing or edema. LABORATORY: Sodium 137, creatinine 0.77, BUN of 25. IMPRESSION: Hyponatremia, which seems to have resolved status post Vaprisol. PLAN: We will continue current renal supportive care.
--- NOTE | 2018-04-04 13:56 | PDOC.PN ---
- Subjective Encounter Start Date: 04/04/18 Encounter Start Time: 11:15 Subjective: is on nasal canula -: no sob, is ambulating around bed - Objective Resuscitation Status: Resuscitation Status FULL:Full Resuscitation MAR Reviewed: Yes Vital Signs & Weight: Vital Signs (12 hours) Temp Pulse Resp BP BP Pulse Ox 04/04/18 11:35 99.1 F 106 H 98/57 L 98 04/04/18 11:31 101 H 98 04/04/18 08:15 98.4 F 79 40 H 97/63 94 L 04/04/18 07:58 97 04/04/18 04:00 68 34 H 99/54 L 91 L Weight Admit Weight 176 lb Weight 165 lb Most Recent Monitor Data Heart Rate from ECG 94 NIBP 97/55 NIBP BP-Mean 69 Respiration from ECG 39 SpO2 97 I&O: 04/03/18 04/04/18 04/05/18 06:59 06:59 06:59 Intake Total 866 2188 Output Total 1100 2000 Balance -234 188 Result Diagrams: 04/04/18 06:18 04/04/18 06:18 Additional Labs: Accuchecks 04/04/18 10:21 POC Glucose 110 Phys Exam - Physical Examination HEENT: PERRLA, moist MMs Neck: no JVD, supple Respiratory: no wheezing rales+ Cardiovascular: RRR, no significant murmur Gastrointestinal: soft, non-tender, positive bowel sounds Musculoskeletal: no edema, pulses present Neurological: non-focal, moves all 4 limbs Psychiatric: normal affect, A&O x 3 Dx/Plan (1) Acute respiratory failure with hypoxia Code(s): J96.01 - ACUTE RESPIRATORY FAILURE WITH HYPOXIA Status: Acute Comment: ARDS (2) PNA (pneumonia) Code(s): J18.9 - PNEUMONIA, UNSPECIFIED ORGANISM Status: Acute Qualifiers: 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 (3) AIDS (acquired immune deficiency syndrome) Status: Acute Comment: CD4 count of 14. Anti-retrovirals held for now (4) Sepsis Code(s): A41.9 - SEPSIS, UNSPECIFIED ORGANISM Status: Acute Comment: PCP with AIDS - Plan is on penatamidine and steroids -: cospofungin, nebs -: on 4-5 lts nc, temp of 99 last 24hrs -: is slowly recovering from ards * . Review of Systems - Medications/Allergies Allergies/Adverse Reactions: Allergies Allergy/AdvReac Type Severity Reaction Status Date / Time No Known Allergies Allergy Verified 03/15/18 03:05 Medications: Current Medications Acetaminophen (Tylenol) 650 mg PO Q4H PRN PRN Reason: Headache/Fever or Pain Last Admin: 04/03/18 17:30 Dose: 650 mg Al Hydroxide/Mg Hydroxide (Maalox) 30 ml PO Q6H PRN PRN Reason: Heartburn or Indigestion Last Admin: 04/02/18 21:59 Dose: 30 ml Albuterol/Ipratropium (Duoneb) 3 ml NEB [id number] [facility] Last Admin: 04/04/18 11:31 Dose: 3 ml Emtricitabine/Tenofovir (Truvada) 1 tab PO DAILY [facility] Enoxaparin Sodium (Lovenox) 40 mg SC 0900 [facility] Last Admin: 04/04/18 09:49 Dose: 40 mg Furosemide (Lasix) 40 mg SLOW IVP DAILY [facility] Last Admin: 04/04/18 09:49 Dose: 40 mg Sodium Chloride (Normal Saline 0.9%) 1,000 mls @ 0 mls/hr IV .Q0M [facility] Clindamycin Phosphate/Dextrose (600 mg/ Device) 50 mls @ 100 mls/hr IVPB Q8HR [facility] Methylprednisolone Sodium Succinate (Solu-Medrol) 20 mg IVP Q8HR [facility] Last Admin: 04/04/18 06:48 Dose: 20 mg Pantoprazole Sodium (Protonix) 40 mg PO DAILY [facility] Last Admin: 04/04/18 09:49 Dose: 40 mg Polyethylene Glycol (Miralax) 17 gm PO DAILY [facility] Last Admin: 04/04/18 09:50 Dose: Not Given Primaquine Phosphate (Primaquine) 52.6 mg PO Q24HR@1200 [facility] Raltegravir (Isentress) 400 mg PO BID [facility] Sodium Biphosphate/Sodium Phosphate (Fleet Enema) 133 ml FS Q8H PRN PRN Reason: Constipation Last Admin: 03/31/18 22:37 Dose: 133 ml Sodium Chloride (Flush - Normal Saline) 10 ml IVF Q12HR [facility] Last Admin: 04/04/18 09:50 Dose: Not Given Sodium Chloride (Flush - Normal Saline) 10 ml IVF PRN PRN PRN Reason: Saline Flush Last Admin: 03/17/18 14:18 Dose: 10 ml
[2018-04-04] MEDS: Clindamycin/D5W 600 MG in Premix Bag 1 BAG IVPB SCH ×2 (14:42→21:47)
[2018-04-04] MEDS: Acetaminophen 325 MG TAB PO PRN (15:44)
--- NOTE | 2018-04-04 17:56 | PRG ---
DATE OF SERVICE: 04/04/2018 SUBJECTIVE: Sitting up over the bedside. He was able to get up and go to the toilet without desatur ating too much. He continues to wear the nasal cannula only. Very little cough. No chest pain, no abdominal pain, no diarrhea, no genitourinary symptoms. OBJECTIVE: VITAL SIGNS: T-max 99.7, BP 106/58, pulse 98, respirations 18, O2 sat 97% on 5 liters nasal cannula. GENERAL: Awake, alert, oriented, in no distress. LUNGS: Better aeration. Bibasilar inspiratory crackles. CARDIOVASCULAR: S1, S2 regular rate. ABDOMEN: Soft, not distended. NEUROLOGIC: Nonfocal. LABORATORY DATA: White cell count 9.6, hemoglobin 13.5, platelets 179, 76% neutrophils. Creatinine 0.77, sodium 137. ASSESSMENT AND DISCUSSION: Advanced human immunodeficiency virus infection with pneumocystis pneumon ia, bronchoalveolar lavage proven with a somewhat poor response to Bactrim and an eventual transition to pentamidine and improvement. Transient requirement for mechanical ventilation and now seems to b e turning the corner and steadily improving day by day. Today, he will be switched to clindamycin an d primaquine. We will restart Truvada and Isentress on Sunday. Hopefully, continue tapering cortico steroids starting Sunday.
[2018-04-04] MEDS ORDERED: Raltegravir Potassium 400 MG TAB PO SCH (21:00)
[2018-04-05] MEDS: Clindamycin/D5W 600 MG in Premix Bag 1 BAG IVPB SCH ×3 (05:22→21:49)
[2018-04-05] MEDS: Polyethylene Glycol 3350 17 GM Packet PO SCH (10:17)
[2018-04-05] MEDS: Emtricitabine/Tenofovir 200-300 MG TAB PO SCH (10:17)
[2018-04-05] MEDS: Enoxaparin Sodium 40 MG/0.4 ML SYRINGE SC SCH (10:17)
[2018-04-05] MEDS: Furosemide 40 MG/4 ML VIAL SLOW IVP SCH (10:18)
--- NOTE | 2018-04-05 14:39 | PDOC.PN ---
- Subjective Encounter Start Date: 04/05/18 Encounter Start Time: 12:35 Subjective: no sob, has ambulated in hallway today -: is on nasal canula 3-4 liters - Objective Resuscitation Status: Resuscitation Status FULL:Full Resuscitation MAR Reviewed: Yes Vital Signs & Weight: Vital Signs (12 hours) Temp Pulse Pulse Pulse Resp BP BP 04/05/18 11:59 97.7 F 97 22 H 111/83 04/05/18 11:02 97 19 04/05/18 10:15 98 103 H 111/73 04/05/18 08:00 69 20 111/73 04/05/18 07:10 04/05/18 07:06 66 15 04/05/18 04:23 98.4 F 71 22 H 100/58 L Pulse Ox Pulse Ox Pulse Ox 04/05/18 11:59 99 04/05/18 11:02 97 04/05/18 10:15 94 L 98 04/05/18 08:00 97 04/05/18 07:10 93 L 04/05/18 07:06 92 L 04/05/18 04:23 92 L Weight Admit Weight 176 lb Weight 147 lb 14.4 oz Most Recent Monitor Data Heart Rate from ECG 94 NIBP 97/55 NIBP BP-Mean 69 Respiration from ECG 39 SpO2 97 I&O: 04/04/18 04/05/18 04/06/18 06:59 06:59 06:59 Intake Total 2188 1350 Output Total 1999 2450 Balance 188 -1100 Result Diagrams: 04/04/18 06:18 04/04/18 06:18 Phys Exam - Physical Examination HEENT: PERRLA, moist MMs Neck: no JVD, supple Respiratory: no wheezing rhonchi++ Cardiovascular: RRR, no significant murmur Gastrointestinal: soft, non-tender, positive bowel sounds Musculoskeletal: no edema, pulses present Neurological: non-focal, moves all 4 limbs Psychiatric: normal affect, A&O x 3 Dx/Plan (1) Acute respiratory failure with hypoxia Code(s): J96.01 - ACUTE RESPIRATORY FAILURE WITH HYPOXIA Status: Acute Comment: ARDS (2) PNA (pneumonia) Code(s): J18.9 - PNEUMONIA, UNSPECIFIED ORGANISM Status: Acute Qualifiers: 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 (3) AIDS (acquired immune deficiency syndrome) Status: Acute Comment: CD4 count of 14. Anti-retrovirals held for now (4) Sepsis Code(s): A41.9 - SEPSIS, UNSPECIFIED ORGANISM Status: Acute Comment: PCP with AIDS - Plan is slowly progressing well -: on clindamycin, plaquenil and steroids -: has been started on isentress and truvada -: nebs, encourage po intake including ensure cans -: to use i.spirometry, work on small muscles of hand and major joints * . Review of Systems - Medications/Allergies Allergies/Adverse Reactions: Allergies Allergy/AdvReac Type Severity Reaction Status Date / Time No Known Allergies Allergy Verified 03/15/18 03:05 Medications: Current Medications Acetaminophen (Tylenol) 650 mg PO Q4H PRN PRN Reason: Headache/Fever or Pain Last Admin: 04/04/18 15:44 Dose: 650 mg Al Hydroxide/Mg Hydroxide (Maalox) 30 ml PO Q6H PRN PRN Reason: Heartburn or Indigestion Last Admin: 04/02/18 21:59 Dose: 30 ml Albuterol/Ipratropium (Duoneb) 3 ml NEB [id number] [facility] Last Admin: 04/05/18 11:02 Dose: 3 ml Emtricitabine/Tenofovir (Truvada) 1 tab PO DAILY [facility] Last Admin: 04/05/18 10:17 Dose: 1 tab Enoxaparin Sodium (Lovenox) 40 mg SC 0900 [facility] Last Admin: 04/05/18 10:17 Dose: 40 mg Furosemide (Lasix) 40 mg SLOW IVP DAILY [facility] Last Admin: 04/05/18 10:18 Dose: 40 mg Sodium Chloride (Normal Saline 0.9%) 1,000 mls @ 0 mls/hr IV .Q0M [facility] Clindamycin Phosphate/Dextrose (600 mg/ Device) 50 mls @ 100 mls/hr IVPB Q8HR [facility] Last Admin: 04/05/18 05:22 Dose: 50 mls Methylprednisolone Sodium Succinate (Solu-Medrol) 20 mg IVP Q8HR [facility] Last Admin: 04/05/18 05:22 Dose: 20 mg Pantoprazole Sodium (Protonix) 40 mg PO DAILY [facility] Last Admin: 04/05/18 10:18 Dose: 40 mg Polyethylene Glycol (Miralax) 17 gm PO DAILY [facility] Last Admin: 04/05/18 10:17 Dose: 17 gm Primaquine Phosphate (Primaquine) 52.6 mg PO Q24HR@1200 [facility] Raltegravir (Isentress) 400 mg PO BID [facility] Sodium Biphosphate/Sodium Phosphate (Fleet Enema) 133 ml FS Q8H PRN PRN Reason: Constipation Last Admin: 03/31/18 22:37 Dose: 133 ml Sodium Chloride (Flush - Normal Saline) 10 ml IVF Q12HR [facility] Last Admin: 04/05/18 10:18 Dose: 10 ml Sodium Chloride (Flush - Normal Saline) 10 ml IVF PRN PRN PRN Reason: Saline Flush Last Admin: 03/17/18 14:18 Dose: 10 ml
--- NOTE | 2018-04-05 19:06 | PRG ---
DATE OF SERVICE: 04/05/2018 SUBJECTIVE: Mr. Armijo says he finally starting to feel good. OBJECTIVE: VITAL SIGNS: He is afebrile, heart rate 114, respiratory rate 24, blood pressure 104/71, 3-1/2 liter nasal cannula . His sats were in the mid 90s. GENERAL: He is in no distress. He is no longer talking in short sentences. LUNGS: Still remarkable for crackles at both lung bases. HEART: Regular rhythm. ABDOMEN: Soft. IMPRESSION: 1. Improving pneumocystis pneumonia 2. Human immunodeficiency virus positive, starting his antiretroviral therapy. PLAN: Continue current care.
--- NOTE | 2018-04-05 19:40 | PRG ---
DATE OF SERVICE: 04/05/2018 SUBJECTIVE: He is feeling better today. He was able to walk 140 feet outside in the [place], ate well. Dyspnea is less. No chest pain. No abdominal pain. No diarrhea. OBJECTIVE: VITAL SIGNS: His T-max is 98.4, blood pressure 104/71, pulse 114, O2 sat 96% with 4 liters of nasal cannula. LUNGS: With bibasilar crackles. Aortic excursions are better. No wheezing. HEART: S1, S2 regular rate. ABDOMEN: Soft. Not distended or tender. EXTREMITIES: Moves all extremities equally. No edema. LABORATORY DATA: White cell count is 9.6, hemoglobin 13, platelets 179, 76% neutrophils. Creatinine is 0.77. ASSESSMENT AND DISCUSSION: Advanced human immunodeficiency virus infection, Pneumocystis jiroveci pr oven by lung washout pathology, finally with significant improvement. Currently, on clindamycin and primaquine. We are starting antiretroviral therapy today with Truvada and Isentress. The steroids h ave been decreased to 20 mg b.i.d. Our plan is to transition everything to oral medication, maybe in the next 2 days including clindamycin, primaquine, and the remainder of his medicine list. Eventual ly, discharge planning on antiretroviral therapy, probably a single-tablet regimen plus Bactrim plus a tapering dose of prednisone.
[2018-04-05] MEDS: Raltegravir Potassium 400 MG TAB PO SCH (20:30)
--- NOTE | 2018-04-05 20:34 | PRG ---
DATE OF SERVICE: 04/05/2018 SUBJECTIVE: The patient seems to be doing much better, noted with the following vital signs. PHYSICAL EXAMINATION: VITAL SIGNS: Temperature 97.7, pulse 97, respiratory rate 22, O2 sat 90% on 4 liters, blood pressure 111/83. NECK: Unremarkable. CARDIOVASCULAR: First and second heart sounds were heard. RESPIRATORY: Clear to percussion. DIGESTIVE: Revealed a benign abdomen with positive bowel sounds. EXTREMITIES: No peripheral edema. SKIN: No new gross rash. LYMPHATICS: No peripheral lymphadenopathy. IMPRESSION: 1. Respiratory failure in the context of PCP pneumonitis. 2. Advanced human immunodeficiency virus/acquired immunodeficiency syndrome. 3. Hyponatremia . PLAN: Continue current renal supportive measures.
[2018-04-06] MEDS: Clindamycin/D5W 600 MG in Premix Bag 1 BAG IVPB SCH ×2 (05:29→13:36)
[2018-04-06] MEDS: Emtricitabine/Tenofovir 200-300 MG TAB PO SCH (09:32)
[2018-04-06] MEDS: Enoxaparin Sodium 40 MG/0.4 ML SYRINGE SC SCH (09:32)
[2018-04-06] MEDS: Raltegravir Potassium 400 MG TAB PO SCH ×2 (09:33→20:44)
[2018-04-06] MEDS: Polyethylene Glycol 3350 17 GM Packet PO SCH (09:33)
[2018-04-06] MEDS: Furosemide 40 MG/4 ML VIAL SLOW IVP SCH (09:33)
--- NOTE | 2018-04-06 11:36 | PDOC.PN ---
- Subjective Encounter Start Date: 04/06/18 Encounter Start Time: 08:20 Subjective: no sob, is down to 2 lts by il now -: has been ambulating and using restroom now - Objective Resuscitation Status: Resuscitation Status FULL:Full Resuscitation MAR Reviewed: Yes Vital Signs & Weight: Vital Signs (12 hours) Temp Pulse Resp BP Pulse Ox 04/06/18 10:35 112 H 16 99 04/06/18 08:00 97 04/06/18 06:39 92 L 04/06/18 06:38 72 16 92 L 04/06/18 05:34 98.3 F 76 22 H 94/55 L 97 Weight Admit Weight 176 lb Weight 146 lb 8 oz Most Recent Monitor Data Heart Rate from ECG 94 NIBP 97/55 NIBP BP-Mean 69 Respiration from ECG 39 SpO2 97 I&O: 04/05/18 04/06/18 04/07/18 06:59 06:59 06:59 Intake Total 1350 1280 Output Total 2450 1750 Balance -1100 -470 Result Diagrams: 04/04/18 06:18 04/04/18 06:18 Phys Exam - Physical Examination HEENT: PERRLA, moist MMs Neck: no JVD, supple Respiratory: no wheezing rhonchi+ Cardiovascular: RRR, no significant murmur Gastrointestinal: soft, non-tender, positive bowel sounds Musculoskeletal: no edema, pulses present Neurological: non-focal, moves all 4 limbs Psychiatric: normal affect, A&O x 3 Dx/Plan (1) Acute respiratory failure with hypoxia Code(s): J96.01 - ACUTE RESPIRATORY FAILURE WITH HYPOXIA Status: Acute Comment: ARDS (2) PNA (pneumonia) Code(s): J18.9 - PNEUMONIA, UNSPECIFIED ORGANISM Status: Acute Qualifiers: 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 (3) AIDS (acquired immune deficiency syndrome) Status: Acute Comment: CD4 count of 14. Anti-retrovirals held for now (4) Sepsis Code(s): A41.9 - SEPSIS, UNSPECIFIED ORGANISM Status: Acute Comment: PCP with AIDS - Plan is on primaquine and steroids for pcp pna -: clinda, isentress and truvada -: iv lasix -: is improving slowly, to amb more as tolerated * . Review of Systems - Medications/Allergies Allergies/Adverse Reactions: Allergies Allergy/AdvReac Type Severity Reaction Status Date / Time No Known Allergies Allergy Verified 03/15/18 03:05 Medications: Current Medications Acetaminophen (Tylenol) 650 mg PO Q4H PRN PRN Reason: Headache/Fever or Pain Last Admin: 04/04/18 15:44 Dose: 650 mg Al Hydroxide/Mg Hydroxide (Maalox) 30 ml PO Q6H PRN PRN Reason: Heartburn or Indigestion Last Admin: 04/02/18 21:59 Dose: 30 ml Albuterol/Ipratropium (Duoneb) 3 ml NEB [id number] [facility] Last Admin: 04/06/18 10:35 Dose: 3 ml Emtricitabine/Tenofovir (Truvada) 1 tab PO DAILY [facility] Last Admin: 04/06/18 09:32 Dose: 1 tab Enoxaparin Sodium (Lovenox) 40 mg SC 0900 [facility] Last Admin: 04/06/18 09:32 Dose: 40 mg Furosemide (Lasix) 40 mg SLOW IVP DAILY [facility] Last Admin: 04/06/18 09:33 Dose: 40 mg Sodium Chloride (Normal Saline 0.9%) 1,000 mls @ 0 mls/hr IV .Q0M [facility] Clindamycin Phosphate/Dextrose (600 mg/ Device) 50 mls @ 100 mls/hr IVPB Q8HR [facility] Last Admin: 04/06/18 05:29 Dose: 50 mls Methylprednisolone Sodium Succinate (Solu-Medrol) 20 mg IVP 0800,2000 [facility] Last Admin: 04/06/18 09:32 Dose: 20 mg Pantoprazole Sodium (Protonix) 40 mg PO DAILY [facility] Last Admin: 04/06/18 09:32 Dose: 40 mg Polyethylene Glycol (Miralax) 17 gm PO DAILY [facility] Last Admin: 04/06/18 09:33 Dose: Not Given Primaquine Phosphate (Primaquine) 52.6 mg PO Q24HR@1200 [facility] Last Admin: 04/05/18 16:55 Dose: 52.6 mg Raltegravir (Isentress) 400 mg PO BID [facility] Last Admin: 04/06/18 09:33 Dose: 400 mg Sodium Biphosphate/Sodium Phosphate (Fleet Enema) 133 ml FS Q8H PRN PRN Reason: Constipation Last Admin: 03/31/18 22:37 Dose: 133 ml Sodium Chloride (Flush - Normal Saline) 10 ml IVF Q12HR [facility] Last Admin: 04/06/18 09:34 Dose: 10 ml Sodium Chloride (Flush - Normal Saline) 10 ml IVF PRN PRN PRN Reason: Saline Flush Last Admin: 03/17/18 14:18 Dose: 10 ml
--- NOTE | 2018-04-06 13:13 | PRG ---
DATE OF SERVICE: 04/06/2018 OBJECTIVE: VITAL SIGNS: Afebrile with temperature 98.3, pulse 72, respiratory rate 16, O2 sat of 99% on 2 liter s, blood pressure 94/55. HEENT: Unremarkable. CARDIOVASCULAR: First and second heart sounds were heard. RESPIRATORY: Clear to auscultation. DIGESTIVE: Revealed a benign abdomen. EXTREMITIES: No peripheral edema. SKIN: No new gross rash. LYMPHATICS: No peripheral lymphadenopathy. IMPRESSION: 1. Hyponatremia, which seems resolved in the context of problem #2. 2. 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 3. PCP pneumonitis. PLAN: 1. Continue current renal supportive measures and continue to monitor electrolytes. 2. Further management to be dependent on the clinical course.
[2018-04-06] MEDS: Clindamycin 150 MG CAP PO SCH ×2 (17:52→23:09)
[2018-04-06] MEDS: predniSONE 20 MG TAB PO SCH (20:44)
--- NOTE | 2018-04-06 23:13 | PRG ---
DATE OF SERVICE: 04/06/2018 SUBJECTIVE: Orestes Armijo looks dramatically better today. OBJECTIVE: VITAL SIGNS: He is afebrile, heart rate is 79 this afternoon, respiratory rates in the 20s, oximetry is 99 on a 2-liter cannula, blood pressure 108/76. LUNGS: Essentially unchanged. HEART: Essentially unchanged. ABDOMEN: Essentially unchanged. IMPRESSION: Severe pneumocystis with human immunodeficiency virus, clinically improved dramatically over the last few days. I have encouraged him to go sit outside this evening or tomorrow if the weat her is better, get some fresh air. He is actually approaching a point where he may be weaned off oxy gen soon. He is back on his antiretroviral therapy. We will continue with current microbial managem ent.
[2018-04-07 00:07] LABS: G-6-PD,Quant 283 (146-376); G-6-PD,RBC 5.03 x10E6/uL (4.14-5.80)
[2018-04-07] MEDS: Clindamycin 150 MG CAP PO SCH ×4 (05:36→23:22)
[2018-04-07] MEDS: Enoxaparin Sodium 40 MG/0.4 ML SYRINGE SC SCH (09:06)
[2018-04-07] MEDS: Raltegravir Potassium 400 MG TAB PO SCH ×2 (09:07→20:48)
[2018-04-07] MEDS: Emtricitabine/Tenofovir 200-300 MG TAB PO SCH (09:07)
[2018-04-07] MEDS: Polyethylene Glycol 3350 17 GM Packet PO SCH (09:07)
[2018-04-07] MEDS: predniSONE 20 MG TAB PO SCH ×2 (09:07→20:48)
[2018-04-07] MEDS: Furosemide 40 MG/4 ML VIAL SLOW IVP SCH (09:07)
--- NOTE | 2018-04-07 12:28 | PDOC.PN ---
- Subjective Encounter Start Date: 04/07/18 Encounter Start Time: 12:00 Subjective: no sob, feels better -: he has had haircut done by his partner - Objective Resuscitation Status: Resuscitation Status FULL:Full Resuscitation MAR Reviewed: Yes Vital Signs & Weight: Vital Signs (12 hours) Temp Pulse Resp BP Pulse Ox 04/07/18 10:21 112 H 20 97 04/07/18 08:00 97 04/07/18 07:14 98.1 F 89 18 113/72 100 04/07/18 06:26 100 04/07/18 06:24 77 16 100 Weight Admit Weight 176 lb Weight 147 lb 12.8 oz Most Recent Monitor Data Heart Rate from ECG 94 NIBP 97/55 NIBP BP-Mean 69 Respiration from ECG 39 SpO2 97 I&O: 04/06/18 04/07/18 04/08/18 06:59 06:59 06:59 Intake Total 1280 680 Output Total 1750 1700 Balance -470 -1020 Result Diagrams: 04/04/18 06:18 04/04/18 06:18 Phys Exam - Physical Examination HEENT: PERRLA, moist MMs Neck: no JVD, supple Respiratory: no wheezing, no rales Cardiovascular: RRR, no significant murmur Gastrointestinal: soft, non-tender, positive bowel sounds Musculoskeletal: no edema, pulses present Neurological: non-focal, moves all 4 limbs Psychiatric: normal affect, A&O x 3 Dx/Plan (1) Acute respiratory failure with hypoxia Code(s): J96.01 - ACUTE RESPIRATORY FAILURE WITH HYPOXIA Status: Acute Comment: ARDS (2) PNA (pneumonia) Code(s): J18.9 - PNEUMONIA, UNSPECIFIED ORGANISM Status: Acute Qualifiers: 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 (3) AIDS (acquired immune deficiency syndrome) Status: Acute Comment: CD4 count of 14. Anti-retrovirals held for now (4) Sepsis Code(s): A41.9 - SEPSIS, UNSPECIFIED ORGANISM Status: Acute Comment: PCP with AIDS - Plan is improving slowly -: is on nasal canula 2-3 lts, iv lasix daily -: is able to ambulate better now -: on primaquine, clinda, steroids, nebs -: truvada and isentress * . Review of Systems - Medications/Allergies Allergies/Adverse Reactions: Allergies Allergy/AdvReac Type Severity Reaction Status Date / Time No Known Allergies Allergy Verified 03/15/18 03:05 Medications: Current Medications Acetaminophen (Tylenol) 650 mg PO Q4H PRN PRN Reason: Headache/Fever or Pain Last Admin: 04/04/18 15:44 Dose: 650 mg Al Hydroxide/Mg Hydroxide (Maalox) 30 ml PO Q6H PRN PRN Reason: Heartburn or Indigestion Last Admin: 04/02/18 21:59 Dose: 30 ml Albuterol/Ipratropium (Duoneb) 3 ml NEB [id number] [facility] Last Admin: 04/07/18 10:21 Dose: 3 ml Clindamycin HCl (Cleocin) 300 mg PO Q6HR [facility] Last Admin: 04/07/18 05:36 Dose: 300 mg Emtricitabine/Tenofovir (Truvada) 1 tab PO DAILY [facility] Last Admin: 04/07/18 09:07 Dose: 1 tab Enoxaparin Sodium (Lovenox) 40 mg SC 0900 [facility] Last Admin: 04/07/18 09:06 Dose: 40 mg Furosemide (Lasix) 40 mg SLOW IVP DAILY [facility] Last Admin: 04/07/18 09:07 Dose: 40 mg Sodium Chloride (Normal Saline 0.9%) 1,000 mls @ 0 mls/hr IV .Q0M [facility] Pantoprazole Sodium (Protonix) 40 mg PO DAILY [facility] Last Admin: 04/07/18 09:07 Dose: 40 mg Polyethylene Glycol (Miralax) 17 gm PO DAILY [facility] Last Admin: 04/07/18 09:07 Dose: Not Given Prednisone (Prednisone) 20 mg PO BID [facility] Last Admin: 04/07/18 09:07 Dose: 20 mg Primaquine Phosphate (Primaquine) 52.6 mg PO Q24HR@1200 [facility] Last Admin: 04/06/18 13:37 Dose: 52.6 mg Raltegravir (Isentress) 400 mg PO BID [facility] Last Admin: 04/07/18 09:07 Dose: 400 mg Sodium Biphosphate/Sodium Phosphate (Fleet Enema) 133 ml FS Q8H PRN PRN Reason: Constipation Last Admin: 03/31/18 22:37 Dose: 133 ml Sodium Chloride (Flush - Normal Saline) 10 ml IVF Q12HR [facility] Last Admin: 04/07/18 09:10 Dose: 10 ml Sodium Chloride (Flush - Normal Saline) 10 ml IVF PRN PRN PRN Reason: Saline Flush Last Admin: 03/17/18 14:18 Dose: 10 ml
--- NOTE | 2018-04-07 15:02 | PRG ---
DATE OF SERVICE: 04/07/2018 SUBJECTIVE: Mr. Armijo is doing much better, is off oxygen, and he has no diarrhea, slightly tachyca rdic, but saturations staying steady at 94%-95% even without O2 administration. OBJECTIVE: VITAL SIGNS: Awake, alert, oriented, appears much improved. LUNGS: Still with crackles at the bases, somewhat diminished breath sounds in the left side. HEART: S1 and S2, regular rate. ABDOMEN: Soft, not distended, or tender. EXTREMITIES: Moves all extremities equally. LABORATORY DATA: White cell count 9.6, hemoglobin of 13.5, platelets 179, 76% neutrophils. Chemistr y not remarkable. ASSESSMENT: Advanced immunosuppression, associated with human immunodeficiency virus infection, pneu mocystis pneumonia with marked improvement now. Continue oral clindamycin and primaquine, tapering d ose of prednisone, antiretroviral therapy with Isentress and Truvada. Discharge planning in the next few days. He will go home on oral Bactrim plus tapering prednisone and a new antiretroviral therapy , probably a single-tablet regimen.
--- NOTE | 2018-04-07 21:07 | PRG ---
DATE OF SERVICE: 04/07/2018 SUBJECTIVE: Orestes Armijo is doing great. We weaning him down to room air today. He went outside and sat outside for a while. OBJECTIVE: LUNGS: Clear. HEART: Regular rhythm. ABDOMEN: Soft. IMPRESSION: Pneumocystis pneumonia, finally clinically resolving. PLAN: Discharge planning once IV antimicrobial therapy is complete.
--- NOTE | 2018-04-07 21:39 | PRG ---
DATE OF SERVICE: 04/07/2018 SUBJECTIVE: The patient seems to be continued to maintain sustained clinical improvement, maintainin g the sodium concentration status post treatment for recent SIADH. The rest of the system examinatio n is unchanged. PLAN: We will continue to monitor the electrolytes and follow accordingly.
[2018-04-08] MEDS: Clindamycin 150 MG CAP PO SCH ×2 (05:31→12:05)
[2018-04-08 05:35] VITALS: BMI 20.5
[2018-04-08] MEDS: Furosemide 40 MG/4 ML VIAL SLOW IVP SCH (09:04)
[2018-04-08] MEDS: Enoxaparin Sodium 40 MG/0.4 ML SYRINGE SC SCH (09:04)
[2018-04-08] MEDS: Emtricitabine/Tenofovir 200-300 MG TAB PO SCH (09:04)
[2018-04-08] MEDS: Polyethylene Glycol 3350 17 GM Packet PO SCH (09:05)
[2018-04-08] MEDS: predniSONE 20 MG TAB PO SCH (09:05)
[2018-04-08] MEDS: Raltegravir Potassium 400 MG TAB PO SCH (09:05)
--- NOTE | 2018-04-08 10:14 | PRG ---
DATE OF SERVICE: 04/08/2018 Mr. Armijo is doing well. He remains on room air. He actually walked up and down stairs with [employer] therapy yesterday. PHYSICAL EXAMINATION: VITAL SIGNS: He is afebrile. Oximetry is 94% on room air. Vital signs have been stable. Intake an d outputs negative 40 mL. IMPRESSION: Status post severe pneumocystis pneumonia. PLAN: His IV diuretics can be discontinued. He can be discharged home from my standpoint at any miah e. He needs a repeat chest radiograph in 1 month.
[2018-04-08 11:53] VITALS: BP 117/76; TEMP 98.8
--- NOTE | 2018-04-08 13:00 | PDOC.PN ---
- Subjective Encounter Start Date: 04/08/18 Encounter Start Time: 11:30 Subjective: no sob, is on room air -: has been climbing stairs and amb in hallway - Objective Resuscitation Status: Resuscitation Status FULL:Full Resuscitation MAR Reviewed: Yes Vital Signs & Weight: Vital Signs (12 hours) Temp Pulse Resp BP BP Pulse Ox Pulse Ox 04/08/18 11:36 98.8 F 106 H 16 117/76 93 L 04/08/18 11:25 84 L 04/08/18 08:11 94 L 04/08/18 08:08 92 18 94 L 04/08/18 07:47 93 L 04/08/18 07:24 98.9 F 83 14 117/68 93 L Pulse Ox 04/08/18 11:36 04/08/18 11:25 94 L 04/08/18 08:11 04/08/18 08:08 04/08/18 07:47 04/08/18 07:24 Weight Admit Weight 176 lb Weight 147 lb 1 oz Most Recent Monitor Data Heart Rate from ECG 94 NIBP 97/55 NIBP BP-Mean 69 Respiration from ECG 39 SpO2 97 I&O: 04/07/18 04/08/18 04/09/18 06:59 06:59 06:59 Intake Total 680 360 Output Total 1700 400 Balance -1020 -40 Result Diagrams: 04/04/18 06:18 04/04/18 06:18 Phys Exam - Physical Examination HEENT: PERRLA, moist MMs Neck: no JVD, supple Respiratory: no wheezing, no rales Cardiovascular: RRR, no significant murmur Gastrointestinal: soft, non-tender, positive bowel sounds Musculoskeletal: no edema, pulses present Neurological: non-focal, moves all 4 limbs Psychiatric: normal affect, A&O x 3 Dx/Plan (1) Acute respiratory failure with hypoxia Code(s): J96.01 - ACUTE RESPIRATORY FAILURE WITH HYPOXIA Status: Acute Comment: ARDS (2) PNA (pneumonia) Code(s): J18.9 - PNEUMONIA, UNSPECIFIED ORGANISM Status: Acute Qualifiers: 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 (3) AIDS (acquired immune deficiency syndrome) Status: Acute Comment: CD4 count of 14. Anti-retrovirals held for now (4) Sepsis Code(s): A41.9 - SEPSIS, UNSPECIFIED ORGANISM Status: Acute Comment: PCP with AIDS - Plan hemostable -: may tx to medical floor if ok with pulm -: is on truvada, isentress -: clinda, primaquine, steroids, nebs -: is on room air this am for the first time since admission * . Review of Systems - Medications/Allergies Allergies/Adverse Reactions: Allergies Allergy/AdvReac Type Severity Reaction Status Date / Time No Known Allergies Allergy Verified 03/15/18 03:05 Medications: Current Medications Acetaminophen (Tylenol) 650 mg PO Q4H PRN PRN Reason: Headache/Fever or Pain Last Admin: 04/04/18 15:44 Dose: 650 mg Al Hydroxide/Mg Hydroxide (Maalox) 30 ml PO Q6H PRN PRN Reason: Heartburn or Indigestion Last Admin: 04/02/18 21:59 Dose: 30 ml Albuterol/Ipratropium (Duoneb) 3 ml NEB [id number] PRN PRN Reason: Dyspnea Clindamycin HCl (Cleocin) 300 mg PO Q6HR [facility] Last Admin: 04/08/18 12:05 Dose: 300 mg Emtricitabine/Tenofovir (Truvada) 1 tab PO DAILY [facility] Last Admin: 04/08/18 09:04 Dose: 1 tab Sodium Chloride (Normal Saline 0.9%) 1,000 mls @ 0 mls/hr IV .Q0M [facility] Pantoprazole Sodium (Protonix) 40 mg PO DAILY [facility] Last Admin: 04/08/18 09:04 Dose: 40 mg Polyethylene Glycol (Miralax) 17 gm PO DAILY [facility] Last Admin: 04/08/18 09:05 Dose: Not Given Prednisone (Prednisone) 20 mg PO BID [facility] Last Admin: 04/08/18 09:05 Dose: 20 mg Primaquine Phosphate (Primaquine) 52.6 mg PO Q24HR@1200 [facility] Last Admin: 04/08/18 12:05 Dose: 52.6 mg Raltegravir (Isentress) 400 mg PO BID [facility] Last Admin: 04/08/18 09:05 Dose: 400 mg Sodium Biphosphate/Sodium Phosphate (Fleet Enema) 133 ml FS Q8H PRN PRN Reason: Constipation Last Admin: 03/31/18 22:37 Dose: 133 ml Sodium Chloride (Flush - Normal Saline) 10 ml IVF Q12HR [facility] Last Admin: 04/08/18 09:05 Dose: 10 ml Sodium Chloride (Flush - Normal Saline) 10 ml IVF PRN PRN PRN Reason: Saline Flush Last Admin: 03/17/18 14:18 Dose: 10 ml
--- NOTE | 2018-04-08 20:25 | PRG ---
DATE OF SERVICE: 04/08/2018 SUBJECTIVE: The patient is doing extremely well. He is standing up, saturating well with room air o nly. No cough, no chest pain. OBJECTIVE: VITAL SIGNS: His T-max is 98.9. The O2 sats are up to 94% and pulse 92 to 106. GENERAL: Awake, alert, oriented. LUNGS: With great sounding breath sounds bilaterally. The crackles have pretty much disappeared. HEART: S1, S2 regular rate. ABDOMEN: Soft, not distended. LABORATORY DATA: The white cell count and all the other labs have not been repeated. ASSESSMENT AND DISCUSSION: Advanced human immunodeficiency virus infection with severe pneumocystis pneumonia with marked improvement over the past 3 days. The patient is ready to be discharged. We w ill send him home on oral Descovy and Tivicay plus clindamycin, primaquine, and tapering dose of pred nisone. After 5 days, switch him to oral Bactrim 1 double strength tablet daily and discontinue pred nisone. Continue Descovy, Tivicay, and Bactrim only after that. Follow up in 1 week in my clinic.
--- NOTE | 2018-04-08 21:43 | PRG ---
DATE OF SERVICE: 04/08/2018 SUBJECTIVE: The patient seems to have maintained sustained clinical improvement, hemodynamically sta ble. OBJECTIVE: VITAL SIGNS: Afebrile. Temperature 98.8, pulse 106, respiratory rate 16, O2 sat 93% with a blood pr essure 117/76. examination unremarkable. LABORATORY INVESTIGATIONS: Showed the patient continued to maintain a sodium level. IMPRESSION: 1. Hyponatremia in the context of syndrome of inappropriate antidiuretic hormone due to problem #2. 2. PCP pneumonitis in the context of problem #3. 3. Advanced human immuno virus/acquired immunodeficiency syndrome. PLAN: We will continue current renal supportive measures. The patient seems to be doing very well.
--- NOTE | 2018-04-09 01:51 | DIS ---
DATE OF ADMISSION: 03/14/2018 DATE OF DISCHARGE: 04/08/2018 DISCHARGE DISPOSITION: To home. PRIMARY DISCHARGE DIAGNOSES: Acute immunodeficiency syndrome with PCP pneumonia, adult respiratory d istress syndrome, newly diagnosed human immunodeficiency virus status, sepsis. PROCEDURES DONE DURING HOSPITALIZATION: Patient has had multiple imaging studies done for PCP pneumo claudia with acute respiratory distress syndrome. CT chest done on the day of admission showed diffuse a bnormal alveolar ground glass opacities with superimposed interstitial septal thickening diffusely th roughout each lung favoring an atypical pneumonia such as pneumocystis. Bronchoscopy was done on by Dr. Sheldon. 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 Negati ve for other fungal organism. No malignancies are identified. Blood cultures x2 no growth. Acid fa st bacilli of bronchial alveolar lavage showed no acid-fast bacilli. Serum cryptococcal antigen was negative. Discharge H&H 13 and 41, platelet count is 179. LDH levels were elevated at 639. HIV ant ibody was positive for A, HIV 1 was positive. Urine Legionella pneumophila antigen was negative. Ur ine Strep pneumo antigen was negative. Toxoplasma gondii IgG and IgM were less than 3.0, histoplasma antigen was less than 0.5 cm. CMV DNA ultra quantitative titer was positive less than 200. HIV, RN A, PCR was 479,000. CD4 count was 14. DISCHARGE MEDICATIONS: Clindamycin 300 mg p.o. 4 times daily for another 5 days, primaquine 52.6 mg p.o. daily for 5 days, to continue Bactrim double-strength 1 tab daily after 04/13/2018 daily, emtric itabine tenofovir 200/25 mg 1 tab daily, Tivicay 50 mg daily, albuterol inhaler q.6 hourly p.r.n., Du oNebs q.6 hourly p.r.n., prednisone 10 mg twice daily for 3 days then daily for 2 days and to discont inue. ALLERGIES: No known drug allergies. INPATIENT CONSULTS: Dr. Sheldon for pulmonology, Dr. Payne for infectious disease. DISCHARGE PLAN: Patient to follow up with Dr. Sheldon in [address] Payne in 1 week. BRIEF COURSE DURING HOSPITALIZATION: Patient initially was admitted for sepsis with pneumonia. He h as had two different courses of antibiotics prior to arrival here. He was diagnosed with HIV and his primary care physician referred him for hospitalization due to underlying pneumonia. Patient was ad mitted to [facility] and has had Pulmonary and Infectious Disease consultation. His CD4 count came back at 14. His HIV test was confirmed and his viral load as mentioned above. Patient had bronchoscopy don e, which confirmed PCP pneumonia. He was initially on Bactrim IV and later switched over to primaqui ne. Patient was in ARDS and was stable for the most part except for 36-hour period, where he had to be intubated for worsening ARDS and successfully extubated. From then on, patient has had good recov nury. At the time of discharge, he is on room air. He is ambulating up and down the stairs and satur ating well. He needs to continue primaquine for another 5 days along with steroids and start Bactrim double-strength daily thereafter. He also needs to continue clindamycin for another 5 days. He has been placed on anti-HIV medications and needs to continue the same as prescribed. He has to follow up with Dr. Payne in 1 week. He is hemodynamically stable, tolerating oral solid diet prior to disch arge. A total of 35 minutes was spent on discharge plan. Please see a [id number] documentation on [facility] for the day of discharge.
== END 2018-04-08 18:12 | disposition home or self-care (01) | DRG 974 ==
LOC: ERS 15:02 → IMCU/EMU 17:38 → CCU 03-28 12:02 → IMCU/EMU 04-01 18:26
PROVIDERS: ADMIT Internal Medicine; ATTEND Internal Medicine
PROC: 0B9D8ZX Drainage of Right Middle Lung Lobe, Via Natural or Artificial Opening Endoscopic, Diagnostic (ICD-10-PCS; principal; 2018-03-28)
PROC: 0BH17EZ Insertion of Endotracheal Airway into Trachea, Via Natural or Artificial Opening (ICD-10-PCS; 2018-03-28)
PROC: 5A1945Z Respiratory Ventilation, 24-96 Consecutive Hours (ICD-10-PCS; 2018-03-28)
PROC: 0BJ08ZZ Inspection of Tracheobronchial Tree, Via Natural or Artificial Opening Endoscopic (ICD-10-PCS; 2018-03-28)
DX: A41.9 Sepsis, unspecified organism (principal); J96.01 Acute respiratory failure with hypoxia; B20 Human immunodeficiency virus [HIV] disease; B59 Pneumocystosis; E22.2 Syndrome of inappropriate secretion of antidiuretic hormone; Z23 Encounter for immunization; T37.0X5A Adverse effect of sulfonamides, initial encounter; Y92.230 Patient room in hospital as the place of occurrence of the external cause; D89.3 Immune reconstitution syndrome; K59.00 Constipation, unspecified; K20.9 Esophagitis, unspecified
CPT/HCPCS: 36415; 36416; 71045; 71250; 80048; 80053; 80074; 80202; 82805; 82955; 83605; 83615; 83735; 83935; 84100; 84295; 84300; 85025; 85041; 85048; 86361; 86644; 86645; 86694; 86695; 86696; 86701; 86702; 86777; 86778; 87040; 87070; 87102; 87116; 87206; 87385; 87389; 87449; 87497; 87536; 87899; 88112; 88305; 88312; 90471; 90670; 90686; 94002; 94003; 94640; 94642; 96365; 96367; 96375; A4216; C9113; G0008; G0009; G8978-GP-CI; G8978-GP-CJ; G8979-GP-CH; G8979-GP-CI; J0637; J0692; J1650; J1720; J1940; J1956; J2060; J2185; J2250; J2270; J2543; J2704; J2920; J2930; J3010; J3370; J3490; J7050; J7070; J7506; J7620; P9047

== ENCOUNTER 2018-04-17 11:56 | Outpatient (CLI) | payer BC ==
--- NOTE | 2018-04-17 13:52 | RAD ---
PA AND LATERAL CHEST: HISTORY: Pneumocystis. Followup. COMPARISON: 04/04/2018 FINDINGS: Heart size is within normal limits. Interstitial alveolar opacities in both lung barton show some sl ight improvement, particularly the changes in the left lung. IMPRESSION: Improving interstitial alveolar lung change. POS: [facility]
== END 2018-04-17 11:57 | disposition home or self-care (01) ==
LOC: BICRAD 11:56
PROVIDERS: ATTEND Internal Medicine Infectious Disease
DX: B59 Pneumocystosis (principal)
CPT/HCPCS: 71046

== ENCOUNTER 2018-05-10 09:53 | Outpatient (CLI) | payer BC ==
--- NOTE | 2018-05-10 11:56 | RAD ---
PA AND LATERAL CHEST: HISTORY: Dyspnea. COMPARISON: 04/17/2018 FINDINGS: Heart size and mediastinum are within normal limits. Lungs appear clear of any infiltrative process. There has been a definite improvement to the interstitial lung changes compared to the prior exam. IMPRESSION: Interval resolution of the interstitial alveolar lung change. POS: [facility]
== END 2018-05-10 09:54 | disposition home or self-care (01) ==
LOC: RAD 09:53
PROVIDERS: ATTEND Internal Medicine Critical Care Medicine
DX: R06.00 Dyspnea, unspecified (principal)
CPT/HCPCS: 71046